=== PATIENT | male | born 1950 | race Caucasian/White ===

== ENCOUNTER → 2016-06-03 | Outpatient (CLI) | payer OTHER, BC ==
[~2016-06-03] MED LIST: ASPI81TA28 PO; ATOR-26 PO; CHOL2000 PO; ELQ25 PO; EPP3/2 IM; ERGO500037 PO; FRS/40 PO; GLC500 PO; LEVE250T PO; LEVO25TA PO; LISI-461 PO; LOSA1TAB PO; LPT40 PO; LVMIPEN SQ; MULT-513 PO; NVLGI/PEN SQ; OMEG10007 PO; SPIR50TA2 PO; SPRN100 PO; TPRSR25 PO; TRIATAB3 PO
[2016-06-03 12:44] LABS: BLOOD UREA NITROGEN 31 mg/dl (7-18); BUN/CREATININE RATIO 20.4 (10-20); CALCIUM 8.9 mg/dl (8.5-10.1); CARBON DIOXIDE 28 mmol/L (21-32); CHLORIDE 107 mmol/L (98-107); GLUCOSE 123 mg/dl (70-99); POTASSIUM 3.9 mmol/L (3.5-5.1); SODIUM 144 mmol/L (136-145)
== END | disposition home or self-care (01) ==
LOC: C.LAB1850 11:20
PROVIDERS: ATTEND Nurse Practitioner Family
DX: E03.9 Hypothyroidism, unspecified (principal); E55.9 Vitamin D deficiency, unspecified; N18.3 Chronic kidney disease, stage 3 (moderate)

== ENCOUNTER → 2016-06-19 | Outpatient (CLI) | payer OTHER, BC ==
[2016-06-19 12:08] LABS: BLOOD UREA NITROGEN 73 mg/dl (7-18); BUN/CREATININE RATIO 31.8 (10-20); CALCIUM 9.5 mg/dl (8.5-10.1); CARBON DIOXIDE 28 mmol/L (21-32); CHLORIDE 101 mmol/L (98-107); GLUCOSE 111 mg/dl (70-99); POTASSIUM 4.8 mmol/L (3.5-5.1); SODIUM 137 mmol/L (136-145)
== END | disposition home or self-care (01) ==
LOC: C.LAB1850 10:52
PROVIDERS: ATTEND Nurse Practitioner Family
DX: I10 Essential (primary) hypertension (principal)

== ENCOUNTER → 2016-07-12 | Outpatient (CLI) | payer OTHER, BC ==
[2016-07-12 12:02] LABS: BLOOD UREA NITROGEN 29 mg/dl (7-18); CALCIUM 8.9 mg/dl (8.5-10.1); CARBON DIOXIDE 34 mmol/L (21-32); CHLORIDE 103 mmol/L (98-107); GLUCOSE 171 mg/dl (70-99); PHOSPHORUS 3.2 mg/dl (2.5-4.9); POTASSIUM 3.7 mmol/L (3.5-5.1); SODIUM 144 mmol/L (136-145)
[2016-07-12 12:03] LABS: URINE PROTIEN/CREAT RATIO 0.3 (0-0.2); URINE TOTAL PROTEIN 7.4 mg/dl (0-11.9)
== END | disposition home or self-care (01) ==
LOC: C.LAB 11:10
PROVIDERS: ATTEND Internal Medicine Nephrology
DX: N18.3 Chronic kidney disease, stage 3 (moderate) (principal)

== ENCOUNTER → 2016-08-29 | Outpatient (CLI) | payer OTHER, BC ==
[2016-08-29 13:09] LABS: BLOOD UREA NITROGEN 24 mg/dl (7-18); BUN/CREATININE RATIO 15.1 (10-20); CALCIUM 8.9 mg/dl (8.5-10.1); CARBON DIOXIDE 33 mmol/L (21-32); CHLORIDE 103 mmol/L (98-107); GLUCOSE 129 mg/dl (70-99); MAGNESIUM 2.3 mg/dl (1.8-2.4); PHOSPHORUS 3.1 mg/dl (2.5-4.9); POTASSIUM 3.8 mmol/L (3.5-5.1); SODIUM 142 mmol/L (136-145)
== END | disposition home or self-care (01) ==
LOC: C.LAB1850 11:36
PROVIDERS: ATTEND Nurse Practitioner Family
DX: Z11.59 Encounter for screening for other viral diseases (principal); I10 Essential (primary) hypertension

== ENCOUNTER → 2016-10-13 | Outpatient (CLI) | payer OTHER, BC ==
[2016-10-13 13:07] LABS: BLOOD UREA NITROGEN 34 mg/dl (7-18); BUN/CREATININE RATIO 21.3 (10-20); CALCIUM 8.8 mg/dl (8.5-10.1); CARBON DIOXIDE 26 mmol/L (21-32); CHLORIDE 98 mmol/L (98-107); MAGNESIUM 2.2 mg/dl (1.8-2.4); PHOSPHORUS 3.1 mg/dl (2.5-4.9); POTASSIUM 4.3 mmol/L (3.5-5.1); SODIUM 134 mmol/L (136-145)
[2016-10-13 13:10] LABS: GLUCOSE 439 mg/dl (70-99)
[2016-10-13 13:29] LABS: BETA-HYDROXYBUTYRATE 0.98 mg/dL (0.2-2.81)
== END | disposition home or self-care (01) ==
LOC: C.LAB1850 10:10
PROVIDERS: ATTEND Internal Medicine Nephrology
DX: I50.32 Chronic diastolic (congestive) heart failure (principal)

== ENCOUNTER 2016-11-11 14:46 | Inpatient (IN) | payer OTHER, BC ==
[~2016-11-11] VITALS: Ht 167.6 cm; Wt 112.0 kg
[~2016-11-11 14:46] MED LIST changes: -CHOL2000 PO; -ELQ25 PO; -EPP3/2 IM; -FRS/40 PO; -GLC500 PO; -LEVE250T PO; -LOSA1TAB PO; -LPT40 PO; -LVMIPEN SQ; -NVLGI/PEN SQ; -SPIR50TA2 PO; -SPRN100 PO; -TPRSR25 PO
[2016-11-11] MEDS ORDERED: SODIUM CHLORIDE 0.9% 1000ML 1,000 ML IV STA (15:14)
[2016-11-11] MEDS ORDERED: CEFTRIAXONE SOD INJ 1 GM ADDVIAL IV STA (15:20)
[2016-11-11] MEDS ORDERED: POTASSIUM CHLORIDE 10 MEQ TABCR PO STA (15:20)
[2016-11-11] MEDS ORDERED: POTASSIUM CHLORIDE 10 MEQ / 100ML WTR IV STA (15:20)
[2016-11-11 15:30] LABS: ISTAT CARBON DIOXIDE 24 mEq/l (24-31); ISTAT CHLORIDE 86 mEq/L (101-112); ISTAT CREATININE 1.6 mg/dl (0.6-1.3); ISTAT HEMATOCRIT 51 % (42-52); ISTAT HEMOGLOBIN 17.3 g/dl (14.0-18.0); ISTAT IONIZED CALCIUM 1.04 mmol/l (1.12-1.32); ISTAT SODIUM 126 mEq/L (135-144)
[2016-11-11] MEDS ORDERED: SEVERE STRESS LEVEL ONE ×2 (15:30→16:00)
[2016-11-11 15:31] LABS: BASO % 0.1 %; BASO ABS # 0.01 K/uL (0-0.2); COMPLETE YES; IG% 0.4 %; LYMPH % 8.7 %; MEAN CORPUSCULAR HEMOGLOBIN 27.1 pg (25-34); MEAN CORPUSCULAR HGB CONC 31.9 g/dl (32-36); MEAN PLATELET VOLUME 10.1 fL (7.4-10.4); MONO % 4.6 %; NEUT % 86.2 %; PLATELET COUNT 340 K/uL (130-400); RED BLOOD COUNT 5.65 M/uL (4.7-6.1); WHITE BLOOD COUNT 12.67 K/uL (4.8-10.8)
--- NOTE | 2016-11-11 15:34 | DIAGNOSTIC IMAGING REPORT ---
SINGLE VIEW CHEST CLINICAL HISTORY: Fever. Sepsis. FINDINGS: An AP, portable, upright chest radiograph is compared to study dated 04/11/2016. The examination is degraded by portable technique, apical lordotic positioning, and patient rotation. The heart is enlarged and there is atherosclerotic calcification of the thoracic aorta. The pulmonary vasculature is noncongested. Chronic interstitial thickening is similar to previous. The lungs and pleural spaces are clear. No pneumothorax is seen. The skeletal structures are osteopenic. The bony thorax is grossly intact. IMPRESSION: Cardiomegaly with no acute cardiopulmonary abnormality. Electronically signed by: Adan Valdovinos M.D. 11/11/2016 3:33 PM Dictated Date/Time: 11/11/2016 3:32 PM
[2016-11-11 15:41] LABS: PARTIAL THROMBOPLASTIN RATIO 0.9; PROTHROMBIN TIME (PATIENT) 11.2 SECONDS (9.0-12.0)
[2016-11-11] MEDS ORDERED: FRS/40 PO (15:41)
[2016-11-11] MEDS ORDERED: CHOL2000 PO (15:41)
[2016-11-11] MEDS ORDERED: SPIR50TA2 PO (15:41)
[2016-11-11] MEDS ORDERED: LOSA1TAB PO (15:41)
[2016-11-11] MEDS ORDERED: GLUCOSE 40% GEL 15 GM TUBE PO PRN ×2 (15:45→17:30)
[2016-11-11] MEDS ORDERED: INSULIN HUMAN REGULAR IV BOLUS 4 UNIT in SYRINGE 0 ML IV SCH (15:45)
[2016-11-11] MEDS ORDERED: DEXTROSE 50% 50 ML SYR IV PRN ×2 (15:45→17:30)
[2016-11-11] MEDS ORDERED: INSULIN REGULAR 250 UNITS in SODIUM CHLORIDE 0.9% 250ML 250 ML IV ONE (15:45)
[2016-11-11] MEDS ORDERED: GLUCOSE 10 TABS/TUBE PO PRN ×2 (15:45→17:30)
[2016-11-11] MEDS ORDERED: GLUCAGON FOR INJ 1 MG VIAL SQ PRN ×2 (15:45→17:30)
[2016-11-11 16:03] LABS: ALKALINE PHOSPHATASE 106 U/L (45-117); ALT/SGPT 44 U/L (12-78); AST/SGOT 19 U/L (15-37); BLOOD UREA NITROGEN 36 mg/dl (7-18); CALCIUM 8.4 mg/dl (8.5-10.1); CARBON DIOXIDE 23 mmol/L (21-32); CHLORIDE 88 mmol/L (98-107); CKMB/CK RATIO 1.2 (0-3.0); POTASSIUM 3.9 mmol/L (3.5-5.1); SODIUM 125 mmol/L (136-145)
[2016-11-11 16:04] LABS: GLUCOSE 709 mg/dl (70-99)
[2016-11-11 16:13] LABS: ARTERIAL BLD GAS O2 SATURATION 90.6 % (90-95); ARTERIAL BLOOD GAS BASE EXCESS -1.5 mEq/L (-9-1.8); ARTERIAL BLOOD GAS HCO3 26 mmol/L (19-24); ARTERIAL BLOOD GAS PO2 64 mmHg (80-95); ARTERIAL BLOOD GAS pH 7.29 (7.35-7.45)
[2016-11-11 16:14] LABS: ALLEN TEST POS (POS); O2 ADMINISTRATION 3L O2
[2016-11-11 16:15] LABS: BETA-HYDROXYBUTYRATE 20.96 mg/dL (0.2-2.81)
--- NOTE | 2016-11-11 16:35 | EMERGENCY ROOM VISIT NOTE ---
History Report prepared by Jacquelineibsarah: Martin Jefferson Under the Supervision of: Dr. Aubrey Cage D.O. First contact with patient: 15:12 Chief Complaint: WEAKNESS Stated Complaint: AMS/WEAKNESS Nursing Triage Summary: Patient arrives via ALS from [facility] with complaints of AMS and weakness for past few days per staff. Patient recently diagnosed with DM but not started on meds, ems checked BSG and reading was >600. Patient A&Ox0 at this time, unable to tell us his name. History of Present Illness The patient is a 66 year old male who presents to the Emergency Room with complaints of worsening altered mental status starting a few days ago. Per EMS, the patient is from [facility] and is typically independent. They state that the staff reports he has been weak and not himself the last couple of days. EMS reports that he was recently diagnosed with diabetes, but has not started his medications yet. Per nursing, they checked his blood sugar level and it was over 600. The patient states that he cannot remember his name. He denies any abdominal pain or generalized pain. The HPI is limited due to the patient's altered mental status. Source of History: EMS, nursing staff History Limited By: AMS Onset: few days ago Position: other (global) Timing: worsening Associated Symptoms: No abdominal pain Review of Systems The ROS is limited due to the patient's altered mental status. Past Medical & Surgical Medical Problems: (1) CORON ATHEROSCLER NOS TYPE VESSEL, LAC COURTE OREILLES OR GRAFT (2) HYPERTENSION NOS (3) Percutaneous transluminal coronary angioplasty (4) Placement of stent in coronary artery Family History Heart disease Stroke Social History Smoking Status: Unknown if Ever Smoked Marital Status: Occupation Status: retired Current/Historical Medications Scheduled Aspirin (Aspirin Ec), 81 MG PO DAILY Atorvastatin (Lipitor), 40 MG PO DAILY Cholecalciferol (Vitamin D3), 2 CAP PO DAILY Epinephrine (Epipen), 0.3 MG IM UD Fish Oil ([place]-3), 1 CAP PO DAILY Furosemide (Lasix), 40 MG PO BID Levothyroxine Sodium (Synthroid), 25 MCG PO DAILY Losartan Potassium (Cozaar), 25 MG PO DAILY Multivitamins/Minerals (Mvi With Minerals), 1 TAB PO DAILY Spironolactone (Aldactone), 50 MG PO DAILY Allergies Coded Allergies: BEE STING (Verified Allergy, Severe, breathing problems, 01/30/13) Physical Exam Vital Signs Date Time Temp Pulse Resp B/P (MAP) Pulse Ox O2 Delivery O2 Flow Rate FiO2 11/11/16 17:06 110 20 183/79 97 Nasal Cannula 3.0 11/11/16 16:03 117 20 195/107 94 Nasal Cannula 3.0 11/11/16 15:43 150 11/11/16 15:08 115 11/11/16 14:56 99 Nasal Cannula 3.0 11/11/16 14:56 38.6 122 34 156/101 99 Nasal Cannula 3.0 Physical Exam CONSTITUTIONAL/VITAL SIGNS: Reviewed / noted above. GENERAL: Non-toxic in appearance. INTEGUMENTARY: Warm, dry, and [place]. HEAD: Normocephalic. EYES: without scleral icterus or trauma. ENT/OROPHARYNX: clear and moist. LYMPHADENOPATHY/NECK: Is supple without lymphadenopathy or meningismus. RESPIRATORY: Lungs clear and equal. CARDIOVASCULAR: Regular rate and rhythm. GI/ABDOMEN: Soft and nontender. No organomegaly or pulsatile mass. No rebound or guarding. Normal bowel sounds. EXTREMITIES: Warm and well perfused. BACK: No CVA tenderness. NEUROLOGICAL: Awake and alert, but not oriented to person, place, or time. Follows simple commands. PSYCHIATRIC: normal affect. MUSCULOSKELETAL: Normally developed with good muscle tone. Medical Decision & Procedures ER Provider Diagnostic Interpretation: X ray results and stated below per my interpretation and radiology interpretation. SINGLE VIEW CHEST CLINICAL HISTORY: Fever. Sepsis. FINDINGS: An AP, portable, upright chest radiograph is compared to study dated 04/11/2016. The examination is degraded by portable technique, apical lordotic positioning, and patient rotation. The heart is enlarged and there is atherosclerotic calcification of the thoracic aorta. The pulmonary vasculature is noncongested. Chronic interstitial thickening is similar to previous. The lungs and pleural spaces are clear. No pneumothorax is seen. The skeletal structures are osteopenic. The bony thorax is grossly intact. IMPRESSION: Cardiomegaly with no acute cardiopulmonary abnormality. Electronically signed by: Adan Valdovinos M.D. 11/11/2016 3:33 PM Dictated Date/Time: 11/11/2016 3:32 PM Laboratory Results 11/11/16 15:20 Red Blood Count 5.65, Mean Corpuscular Volume 85.0, Mean Corpuscular Hemoglobin 27.1, Mean Corpuscular Hemoglobin Concent 31.9, Mean Platelet Volume 10.1, Neutrophils (%) (Auto) 86.2, Lymphocytes (%) (Auto) 8.7, Monocytes (%) (Auto) 4.6, Eosinophils (%) (Auto) 0.0, Basophils (%) (Auto) 0.1, Neutrophils # (Auto) 10.93, Lymphocytes # (Auto) 1.10, Monocytes # (Auto) 0.58, Eosinophils # (Auto) 0.00, Basophils # (Auto) 0.01 11/11/16 15:20 Test 11/11/16 15:15 11/11/16 15:20 11/11/16 15:44 11/11/16 16:06 Bedside Hemoglobin 17.3 g/dl (14.0-18.0) Bedside Hematocrit 51 % (42-52) Bedside Sodium 126 mEq/L (135-144) Bedside Potassium 3.8 mEq/L (3.3-5.0) Bedside Chloride 86 mEq/L (101-112) Bedside Total CO2 24 mEq/l (24-31) Bedside Blood Urea Nitrogen 36 mg/dl (7-18) Bedside Creatinine 1.6 mg/dl (0.6-1.3) Bedside Glucose (other) > 700 mg/dl (70-99) Bedside Ionized Calcium (Tiera) 1.04 mmol/l (1.12-1.32) White Blood Count 12.67 K/uL (4.8-10.8) Red Blood Count 5.65 M/uL (4.7-6.1) Hemoglobin 15.3 g/dL (14.0-18.0) Hematocrit 48.0 % (42-52) Mean Corpuscular Volume 85.0 fL (80-100) Mean Corpuscular Hemoglobin 27.1 pg (25-34) Mean Corpuscular Hemoglobin Concent 31.9 g/dl (32-36) Platelet Count 340 K/uL (130-400) Mean Platelet Volume 10.1 fL (7.4-10.4) Neutrophils (%) (Auto) 86.2 % Lymphocytes (%) (Auto) 8.7 % Monocytes (%) (Auto) 4.6 % Eosinophils (%) (Auto) 0.0 % Basophils (%) (Auto) 0.1 % Neutrophils # (Auto) 10.93 K/uL (1.4-6.5) Lymphocytes # (Auto) 1.10 K/uL (1.2-3.4) Monocytes # (Auto) 0.58 K/uL (0.11-0.59) Eosinophils # (Auto) 0.00 K/uL (0-0.5) Basophils # (Auto) 0.01 K/uL (0-0.2) RDW Standard Deviation 44.2 fL (36.4-46.3) RDW Coefficient of Variation 14.3 % (11.5-14.5) Immature Granulocyte % (Auto) 0.4 % Immature Granulocyte # (Auto) 0.05 K/uL (0.00-0.02) Prothrombin Time 11.2 SECONDS (9.0-12.0) Prothromb Time International Ratio 1.0 (0.9-1.1) Activated Partial Thromboplast Time 24.5 SECONDS (21.0-31.0) Partial Thromboplastin Ratio 0.9 Anion Gap 14.0 mmol/L (3-11) Est Creatinine Clear Calc Drug Dose 44.6 ml/min Estimated GFR () 41.7 Estimated GFR (Non- 35.9 BUN/Creatinine Ratio 19.0 (10-20) Calcium Level 8.4 mg/dl (8.5-10.1) Total Bilirubin 0.7 mg/dl (0.2-1) Direct Bilirubin 0.3 mg/dl (0-0.2) Aspartate Amino Transf (AST/SGOT) 19 U/L (15-37) Alanine Aminotransferase (ALT/SGPT) 44 U/L (12-78) Alkaline Phosphatase 106 U/L (45-117) Total Creatine Kinase 82 U/L (39-308) Creatine Kinase MB 1.0 ng/ml (0.5-3.6) Creatine Kinase MB Ratio 1.2 (0-3.0) Troponin I < 0.015 ng/ml (0-0.045) Total Protein 7.0 gm/dl (6.4-8.2) Albumin 3.3 gm/dl (3.4-5.0) Lipase 281 U/L (73-393) Beta-Hydroxybutyric Acid 20.96 mg/dL (0.2-2.81) Arterial Blood pH 7.29 (7.35-7.45) Arterial Blood Partial Pressure CO2 57 mmHg (35-46) Arterial Blood Partial Pressure O2 64 mmHg (80-95) Arterial Blood HCO3 26 mmol/L (19-24) Arterial Blood Oxygen Saturation 90.6 % (90-95) Arterial Blood Base Excess -1.5 mEq/L (-9-1.8) Arterial Blood Gas Delivery 3L O2 Geovani Test POS (POS) Lactic Acid Level 1.3 mmol/L (0.4-2.0) Laboratory results as stated above per my review. Medications Administered Medications (Trade) Dose Ordered Sig/Cuauhtemoc Route Start Time Stop Time Status Last Admin Dose Admin Sodium Chloride 1,000 ml @ 999 mls/hr Q1H1M STAT IV 11/11/16 15:14 11/11/16 16:14 DC 11/11/16 16:05 999 MLS/HR Miscellaneous (Insulin Protocol Severe Stress) 1 ea ONE ONCE N/A 11/11/16 15:30 11/11/16 15:31 DC 11/11/16 16:20 1 EA Potassium Chloride (Kcl 10 Meq / Wtr) 10 meq NOW STAT IV 11/11/16 15:20 11/11/16 15:24 DC 11/11/16 16:08 10 MEQ Ceftriaxone Sodium (Rocephin Inj) 1 gm NOW STAT IV 11/11/16 15:20 11/11/16 15:24 DC 11/11/16 16:04 1 GM Insulin Human Regular 4 unit/ Syringe 4 ml @ 1 mls/min TODAY@1545 IV 11/11/16 15:45 11/11/16 15:48 DC 11/11/16 16:14 1 MLS/MIN Insulin Human Regular 250 units/ Sodium Chloride 252.5 ml @ 4.1 mls/hr TODAY@1545 ONCE IV 11/11/16 15:45 11/14/16 05:20 11/11/16 16:15 4.1 MLS/HR Miscellaneous (Insulin Protocol Severe Stress) 1 ea ONE ONCE N/A 11/11/16 16:00 11/11/16 16:01 DC 11/11/16 16:24 1 EA ECG Indication: altered mental status Rate (beats per minute): 120 Rhythm: sinus tachycardia Findings: no acute ischemic change, no ectopy ED Course 1518: Previous medical records were reviewed. The patient was evaluated in room B12B. A complete history and physical examination was performed. 1514: Sodium Chloride 1000 ml @ 999 mls/hr Iv. 1520: Rocephin Injection 1 gm IV, Potassium Chloride 10 meq IV, Potassium Chloride 40 mew PO. 1530: Insulin Protocol Severe Stress 1 each. 1545: Glucagon 1 mg SQ, Dextrose 50 ml IV, Glucose 1 tab PO, Insulin Human Regular 250 units/ Sodium Chloride 252.2 ml @ 4.1 mls/hr IV, Insulin Human Regular 4 unit/ Syringe 4 ml @ 1 mls/min IV. 1628: I discussed the patient's case with Dr. Davila, [facility] Hospitalist. He understands the patient's conditions and agrees to accept the patient. The patient will be further evaluated. 1900: Insulin Aspart sliding scale SC. Medical Decision Differential includes acute coronary syndrome, myocardial infarction, CVA, TIA, anemia, infection, pneumonia, UTI, pyelonephritis, poor nutrition, dehydration, electrolyte disturbance,hypoglycemia. Medication Reconciliation: I attest that I have personally reviewed the patient' s current medication list. Patient was found to have a slightly elevated blood pressure due to circumstances. I do not believe that the patient requires hypertension monitoring. This is a 66-year-old male who presents to the ED with a chief complaint of altered mental status, fever and high blood sugar. The patient has recently been diagnosed with diabetes but has not yet been placed on medication for this. Today he was found to be altered and weak. Temperature here is 38.6. Heart rate was 122. His blood pressure was 156/101. The patient is awake and observed his surroundings but does not answer questions appropriately. He does follow basic commands. His sodium is 125. This is likely pseudohyponatremia related to his hyperglycemia. His blood sugar was 709. Anion gap is 14. BUN is 36 and creatinine is 1.9. Chest x-ray did not show acute disease. White cell count was 12.67. The patient was started on IV fluids. He was given normal saline 1 L. He was started on IV insulin drip, given K Dur 40 mEq by mouth and KCl 10 mg IV. He was also given IV Rocephin. The patient was seen by the hospitalist service for further inpatient evaluation and care. Consults Time Called: 1627 Consulting Physician: Dr. Davila, [facility] Hospitalist Returned Call: [phone] I discussed the patient's case with Dr. Davila [facility] Hospitalist. He understands the patient's conditions and agrees to accept the patient. The patient will be further evaluated. Impression Primary Impression: Hyperglycemia Additional Impressions: Dehydration Renal insufficiency Fever Altered mental state Critical Care I have personally spent 35 minutes of critical care time in the direct management of this patient. This includes bedside care, interpretation of diagnostic studies, and testing, discussion with consultants, patient, and family members, and other required patient management activities. Scribe Attestation The scribe's documentation has been prepared under my direction and personally reviewed by me in its entirety. I confirm that the note above accurately reflects all work, treatment, procedures, and medical decision making performed by me. Departure Information Dispostion Being Evaluated By Hospitalist Referrals Livier Gamble (PCP) Patient Instructions My [facility] Problem Qualifiers
[2016-11-11] MEDS ORDERED: EPP3/2 IM (16:36)
[2016-11-11] MEDS ORDERED: POTASSIUM CHLR 10 MEQ / WTR 10 MEQ in PREMIXED WATER 100 ML IV STA (16:37)
[2016-11-11] MEDS ORDERED: INSULIN IV INFUSION PROTOCOL STA (17:18)
[2016-11-11] MEDS ORDERED: ONDANSETRON INJ 2 MG/ML 2 ML VIAL IV PRN (17:30)
[2016-11-11] MEDS ORDERED: ACETAMINOPHEN 325 MG TAB PO PRN (17:30)
[2016-11-11] MEDS ORDERED: MAGNESIUM HYDROXIDE SUSP 30 ML UDC PO PRN (17:30)
[2016-11-11] MEDS ORDERED: ALUMINUM/MAGNESIUM/SIMETH (MAALOX MAX) 30 ML UDC PO PRN (17:30)
[2016-11-11] MEDS ORDERED: POLYETHYLENE (MIRALAX) 17 GM PACK PO PRN (17:30)
[2016-11-11 17:48] LABS: URINE APPEARANCE CLEAR (CLEAR); URINE BILIRUBIN NEG (NEG); URINE COLOR YELLOW; URINE EPITHELIAL CELL AUTO 0-5 /lpf (0-5); URINE NITRITE NEG (NEG); URINE SPECIFIC GRAVITY 1.035 (1.000-1.030); UROBILINOGEN NEG (NEG); ZZUR CULT IF INDIC CLEAN CATCH NO
[2016-11-11 17:50] LABS: MANUAL MICROSCOPIC REQUIRED? NO; REVIEW REQ? NO
[2016-11-11 17:51] LABS: MAGNESIUM 2.4 mg/dl (1.8-2.4); PHOSPHORUS 5.1 mg/dl (2.5-4.9)
[2016-11-11 18:15] VITALS: BP 156/86; PULSE 90; TEMP 37.4; O2SAT 97; BMI 38.3
[2016-11-11] MEDS: INSULIN ASPART 100 UNITS/ML 3 ML PEN SC SCH ×2 (18:52→21:00)
[2016-11-11] MEDS ORDERED: INSULIN ASPART 100 UNITS/ML 3 ML PEN SC SCH (18:52)
[2016-11-11 19:15] VITALS: BP 136/97; PULSE 92; TEMP 36.8; O2SAT 98
[2016-11-11 20:00] VITALS: O2SAT 98
--- NOTE | 2016-11-11 20:02 | History and Physical ---
History & Physical Date & Time of Service: Nov 11, 2016 at 19:31 Chief Complaint: Dka(Diabetic Ketoacidoses) Primary Care Physician: Livier Gamble History of Present Illness Source: patient, clinic records, hospital records This is a 66 y/o male with a history of recently diagnosed DM II, CAD s/p PROGRAMMING ENGINEER, diastolic CHF, CKD stage III, HLD, HTN, and hypothyroidism who presented to the ED on 11/11 with confusion and weakness. The patient is a resident of [facility] and is typically independent per report. The staff reports that the patient had been acting unusual for the last few days and weak. His blood sugar was checked by staff and was reportedly over 600. The patient was recently diagnosed with diabetes but has not been started on a regimen yet. On exam, the patient is completely confused and disoriented and unable to tell me any review of systems. Past Medical/Surgical History Medical Problems: (1) CORON ATHEROSCLER NOS TYPE VESSEL, [place] OR GRAFT Status: Chronic (2) HYPERTENSION NOS Status: Chronic (3) Percutaneous transluminal coronary angioplasty Status: Resolved (4) Placement of stent in coronary artery Status: Resolved DM II Diastolic CHF CKD stage III HTN HLD Hypothyroidism Family History Heart disease Stroke Social History Social history obtained from outpatient records, pt unable to provide himself Smoking Status: Never Smoker Smokeless Tobacco Use: No Alcohol Use: none Drug Use: none Marital Status: Housing status: assisted living ([facility]) Occupational Status: retired Immunizations History of Influenza Vaccine: No History of Tetanus Vaccine?: Yes History of Pneumococcal: No History of Hepatitis B Vaccine: No Multi-Drug Resistant Organisms History of MDRO: Yes Type of MDRO: MRSA Allergies Coded Allergies: BEE STING (Verified Allergy, Severe, breathing problems, 01/30/13) Home Medications Scheduled Apixaban (Eliquis), 5 MG PO BID Aspirin (Aspirin Ec), 81 MG PO DAILY Atorvastatin (Atorvastatin Calcium), 80 MG PO DAILY Cholecalciferol (Vitamin D3), 2 CAP PO DAILY Epinephrine (Epipen), 0.3 MG IM UD Fish Oil (Taopi-3), 1 CAP PO DAILY Insulin Aspart (Novolog Flexpen), 4-9 UNITS SQ TID Insulin Detemir (Levemir Flextouch), 30 UNITS SQ BID Levetiracetam (Keppra), 2 TAB PO BID Levothyroxine Sodium (Synthroid), 25 MCG PO DAILY Losartan Potassium (Cozaar), 25 MG PO DAILY Metformin HCl (Metformin HCl), 500 MG PO BIDM Metoprolol Succinate (Metoprolol Succinate ER), 25 MG PO BID Multivitamins/Minerals (Mvi With Minerals), 1 TAB PO DAILY Spironolactone (Spironolactone), 50 MG PO DAILY Review of Systems Unable to obtain ROS due to mental status. Physical Exam Vital Signs Date Time Temp Pulse Resp B/P (MAP) Pulse Ox O2 Delivery O2 Flow Rate FiO2 11/11/16 17:34 97 22 160/98 97 Nasal Cannula 3.0 11/11/16 17:06 110 20 183/79 97 Nasal Cannula 3.0 11/11/16 16:03 117 20 195/107 94 Nasal Cannula 3.0 11/11/16 15:43 150 11/11/16 15:08 115 11/11/16 14:56 99 Nasal Cannula 3.0 11/11/16 14:56 38.6 122 34 156/101 99 Nasal Cannula 3.0 General appearance: +Obese. Well-developed, well-nourished, no apparent distress Head: Normocephalic, atraumatic Eyes: Normal inspection, PERRL, EOMI ENT: Normal ENT inspection, hearing grossly normal, pharynx normal Neck: Supple, no JVD, trachea midline Respiratory/Chest: Lungs clear to auscultation, normal breath sounds, no respiratory distress Cardiovascular: +Systolic murmur. Tachycardia. Regular rhythm, no gallop Abdomen/GI: Normal bowel sounds, non-tender, soft Extremities/Musculoskeletal: Normal inspection, no calf tenderness, no pedal edema Neurological/Psych: +Confused, disoriented x 3. Able to follow commands. Alert, normal mood/affect Skin: Normal color, warm/dry, no rash Diagnostics Laboratory Results Results Past 24 Hours Test 11/11/16 15:15 11/11/16 15:20 11/11/16 15:44 11/11/16 16:06 Range/Units Bedside Hemoglobin 17.3 14.0-18.0 g/dl Bedside Hematocrit 51 42-52 % Bedside Sodium 126 135-144 mEq/L Bedside Potassium 3.8 3.3-5.0 mEq/L Bedside Chloride 86 101-112 mEq/L Bedside Total CO2 24 24-31 mEq/l Anion Gap 21.0 14.0 3-11 mmol/L Bedside Blood Urea Nitrogen 36 7-18 mg/dl Bedside Creatinine 1.6 0.6-1.3 mg/dl Bedside Glucose (other) > 700 70-99 mg/dl Bedside Ionized Calcium (Tiera) 1.04 1.12-1.32 mmol/l White Blood Count 12.67 4.8-10.8 K/uL Red Blood Count 5.65 4.7-6.1 M/uL Hemoglobin 15.3 14.0-18.0 g/dL Hematocrit 48.0 42-52 % Mean Corpuscular Volume 85.0 80-100 fL Mean Corpuscular Hemoglobin 27.1 25-34 pg Mean Corpuscular Hemoglobin Concent 31.9 32-36 g/dl Platelet Count 340 130-400 K/uL Mean Platelet Volume 10.1 7.4-10.4 fL Neutrophils (%) (Auto) 86.2 % Lymphocytes (%) (Auto) 8.7 % Monocytes (%) (Auto) 4.6 % Eosinophils (%) (Auto) 0.0 % Basophils (%) (Auto) 0.1 % Neutrophils # (Auto) 10.93 1.4-6.5 K/uL Lymphocytes # (Auto) 1.10 1.2-3.4 K/uL Monocytes # (Auto) 0.58 0.11-0.59 K/uL Eosinophils # (Auto) 0.00 0-0.5 K/uL Basophils # (Auto) 0.01 0-0.2 K/uL RDW Standard Deviation 44.2 36.4-46.3 fL RDW Coefficient of Variation 14.3 11.5-14.5 % Immature Granulocyte % (Auto) 0.4 % Immature Granulocyte # (Auto) 0.05 0.00-0.02 K/uL Prothrombin Time 11.2 9.0-12.0 SECONDS Prothromb Time International Ratio 1.0 0.9-1.1 Activated Partial Thromboplast Time 24.5 21.0-31.0 SECONDS Partial Thromboplastin Ratio 0.9 Sodium Level 125 136-145 mmol/L Potassium Level 3.9 3.5-5.1 mmol/L Chloride Level 88 98-107 mmol/L Carbon Dioxide Level 23 21-32 mmol/L Blood Urea Nitrogen 36 7-18 mg/dl Creatinine 1.90 0.60-1.40 mg/dl Est Creatinine Clear Calc Drug Dose 44.6 ml/min Estimated GFR () 41.7 Estimated GFR (Non- 35.9 BUN/Creatinine Ratio 19.0 10-20 Random Glucose 709 70-99 mg/dl Calcium Level 8.4 8.5-10.1 mg/dl Phosphorus Level 5.1 2.5-4.9 mg/dl Magnesium Level 2.4 1.8-2.4 mg/dl Total Bilirubin 0.7 0.2-1 mg/dl Direct Bilirubin 0.3 0-0.2 mg/dl Aspartate Amino Transf (AST/SGOT) 19 15-37 U/L Alanine Aminotransferase (ALT/SGPT) 44 12-78 U/L Alkaline Phosphatase 106 45-117 U/L Total Creatine Kinase 82 39-308 U/L Creatine Kinase MB 1.0 0.5-3.6 ng/ml Creatine Kinase MB Ratio 1.2 0-3.0 Troponin I < 0.015 0-0.045 ng/ml Total Protein 7.0 6.4-8.2 gm/dl Albumin 3.3 3.4-5.0 gm/dl Lipase 281 73-393 U/L Beta-Hydroxybutyric Acid 20.96 0.2-2.81 mg/dL Arterial Blood pH 7.29 7.35-7.45 Arterial Blood Partial Pressure CO2 57 35-46 mmHg Arterial Blood Partial Pressure O2 64 80-95 mmHg Arterial Blood HCO3 26 19-24 mmol/L Arterial Blood Oxygen Saturation 90.6 90-95 % Arterial Blood Base Excess -1.5 -9-1.8 mEq/L Arterial Blood Gas Delivery 3L O2 Geovani Test POS POS Lactic Acid Level 1.3 0.4-2.0 mmol/L Test 11/11/16 17:17 11/11/16 17:30 11/11/16 18:19 11/11/16 19:19 Range/Units Bedside Glucose 449 380 313 70-99 mg/dl Urine Color YELLOW Urine Appearance CLEAR CLEAR Urine pH 5.0 4.5-7.5 Urine Specific [place] 1.035 1.000-1.030 Urine Protein TRACE NEG Urine Glucose (UA) 3+ NEG Urine Ketones TRACE NEG Urine Occult Blood TRACE NEG Urine Nitrite NEG NEG Urine Bilirubin NEG NEG Urine Urobilinogen NEG NEG Urine Leukocyte Esterase NEG NEG Urine WBC (Auto) 0 0-5 /hpf Urine RBC (Auto) 0-4 0-4 /hpf Urine Hyaline Casts (Auto) 1-5 0-5 /lpf Urine Epithelial Cells (Auto) 0-5 0-5 /lpf Urine Bacteria (Auto) NEG NEG Microbiology Results 11/11/16 Blood Culture, Received Pending 11/11/16 Blood Culture, Received Pending Diagnostic Radiology Reviewed the following studies and agree with interpretation as follows: Patient Name: KALEB ANDINO Unit Number: [id number] Dictated: 11/11/161531 Transcribed: 11/11/161531 EV Printed Date/Time: [~ rep prt dt]/[~ rep prt tm] [~ rep ct labl] - [~ rep ct ivnm] [facility] [place] [address] Dictated: 11/11/161531 Transcribed: 11/11/16 153 EV Printed Date/Time: [~ rep prt dt]/[~ rep prt tm] [~ rep ct labl] - [~ rep ct ivnm] Patient: KALEB ANDINO Address1: [address] [place] [address] Rec: [id number] Address2: Acct ID: [id number] [facility] Zip: [place] [address] Date: 1950 Sex: M Room/Bed: Ref Phy: Livier Gamble.R.N.PDasia SC: LENCHO Att Phy: Report #: [id number] Bisi Phy: Livier Gamble.R.N.PDasia Test: CXR1P Admit Phy: Acupressure Therapist: WILIAN Interpreting Phy: Adan Valdovinos M.D. Diagnosis: AMS/WEAKNESS Ordering Phy: Aubrey Cage D.O. Service Date: 11/11/16 Admit Date: 11/11/16 MNE: [id number] CONF: DICTATED BY: Adan Valdovinos M.D.]] CC: Livier GambleNAubrey Lnae D.O. [facility]: [~ rep ct add3]] SINGLE VIEW CHEST CLINICAL HISTORY: Fever. Sepsis. FINDINGS: An AP, portable, upright chest radiograph is compared to study dated 04/11/2016. The examination is degraded by portable technique, apical lordotic positioning, and patient rotation. The heart is enlarged and there is atherosclerotic calcification of the thoracic aorta. The pulmonary vasculature is noncongested. Chronic interstitial thickening is similar to previous. The lungs and pleural spaces are clear. No pneumothorax is seen. The skeletal structures are osteopenic. The bony thorax is grossly intact. IMPRESSION: Cardiomegaly with no acute cardiopulmonary abnormality. Electronically signed by: Adan Valdovinos M.D. 11/11/2016 3:33 PM Dictated Date/Time: 11/11/2016 3:32 PM The status of this report is Signed. Draft = Not yet reviewed or approved by Radiologist. Signed = Reviewed and approved by Radiologist. <AttendingPhy></AttendingPhy> <FamilyPhy>Livier Gamble.R.N.PDasia</FamilyPhy> <PrimaryPhy>Livier Gamble.R.N.P.</PrimaryPhy> <UnitNumber>[id number]</ UnitNumber> <VisitNumber>[id number]</VisitNumber> <PatientName>KALEB ANDINO</ PatientName> <DateOfBirth>1950</DateOfBirth> <Location>C.EDB</Location> < ServiceDate>11/11/16</ServiceDate> <MNE>ESINDI</MNE> <OrderingPhy>Aubrey Cage D.O.</OrderingPhy> <OrderingPhyMNE>f rep ord dr cervantes</OrderingPhyMNE> < DictatingPhyMNE>f rep dict dr cervantes</DictatingPhyMNE> <CCListMNE>f rep ct mne</ CCListMNE> <AdmittingPhyMNE>f pt admit dr cervantes</AdmittingPhyMNE> <AttendingPhyMNE >f pt attend dr cervantes</AttendingPhyMNE> <ConsultingPhyMNE>f pt consult dr cervantes</ConsultingPhyMNE> <FamilyPhyMNE>f pt fam dr cervantes</FamilyPhyMNE> <OtherPhyMNE>f pt other dr cervantes</OtherPhyMNE> < PrimaryPhyMNE>f pt prim care dr cervantes</PrimaryPhyMNE> <ReferringPhyMNE>f pt referring dr cervantes</ReferringPhyMNE> EKG Reviewed EKG and agree with interpretation as follows: 120 bpm, sinus tachycardia Impression Assessment and Plan 66 y/o male with a history of recently diagnosed DM II, CAD s/p PROGRAMMING ENGINEER, diastolic CHF, CKD stage III, HLD, HTN, and hypothyroidism who presented to the ED on 11/11 with confusion and weakness. Patient afebrile with temperature of 38.6C on arrival. Patient tachycardic with heart rate in the 120s up to 150. Patient also tachypneic on arrival. Initial glucose 709. WBC 12.67. ABG shows pH of 7.29, pCO2 57, pO2 64, pHCO3 26. Potassium stable at 2.9. Beta hydroxybutyric acid 20.96. Sodium 125, anion gap 14. Creatinine elevated above baseline at 1.9. Chest x-ray shows no acute disease. Patient received IV fluids, insulin, potassium chloride and Rocephin in ED. Diabetic ketoacidosis, recently diagnosed DM--last HgbA1c checked on 10/14/16 was 9.6 -Admit to telemetry -Check magnesium phosphorus now -Serial PRP, magnesium, phosphorus, venous blood gas q4h until stable -IVF with NSS + KCl 20 mEq at 125 cc/hr -Continue insulin drip per protocol -Insulin sliding scale -BSG checks per protocol -UA pending -Blood cultures pending -Patient received 1 dose of Rocephin in the ED CIARA on CKD stage III--baseline creatinine 1.5-1.6 -Containing 1.9 on arrival -IVF as above -Hold Lasix and losartan -Continue to monitor CAD s/p PROGRAMMING ENGINEER, HLD -Continue aspirin 81 mg PO qd and atorvastatin 40 mg PO qd Diastolic CHF--stable, not in acute exacerbation -Continue IVF for now due to DKA, watch carefully -Hold Lasix for now -Continue spironolactone 50 mg PO qd -Daily weights, I's & O's HTN -Losartan held -Cover with hydralazine 10 mg IV q6h prn SBP >180 Hypothyroidism -Continue Synthroid 25 mcg PO qd DVT prophylaxis -Heparin 5000 units SC q8h -BALDEMAR chaudhry and SCDs Code Status -Level I, FULL RESUSCITATION STATUS This chart was completed in part utilizing [employer] Voice Recognition software. Attempts were made to minimize the grammatical errors, random word insertions, pronoun errors and incomplete sentences. Any formal questions or concerns about the content, text or information contained within the body of this dictation should be directly addressed to the provider for clarification. Level of Care Telemetry Resuscitation Status FULL RESUSCITATION VTE Prophylaxis VTE Risk Assessment Done? Y/N: Yes Risk Level: Moderate Given or contraindicated: Unfractionated heparin SQ, T.E.D. Stockings, SCD's Assessment and Plan Attending Addendum: I have physically seen and examined this patient, have directed the physician assistants medical extremities, and agree with the H&P as noted above with the following exceptions: NONE The patient is awake, well-developed and adequately nourished, alert and oriented 3, normocephalic and atraumatic, lying in bed and in mild acute distress. HEENT--PERRL, EOMI, mucous membranes and oropharynx dry. Neck--supple, no JVD or bruits, thyroid normal, trachea midline, no adenopathy. Heart--tachycardic and regular, no murmurs, rubs or gallops. Lungs--few coarse breath sounds bilaterally, no respiratory distress, no accessory muscle use. Abdomen--normal bowel sounds and soft, nontender and nondistended, no hernias or masses, no organomegaly. Extremities--no cyanosis, clubbing or edema. There are good distal pulses b/l. Dermatologic--normal skin turgor, normal color, warm and dry, no abnormal lymph nodes, no rash. Neurologic--cranial nerves II through XII grossly intact. Rheumatologic--normal range of motion, nontender, muscles and joints. Psychiatric--normal affect. Assessment and Plan: 1. DKA in a recently diagnosed diabetic not yet on treatment, and came in tachypneic, tachycardic, dehydrated with signs of respiratory acidosis. Admitted to a monitored bed. Continue the insulin drip per protocol begun in the emergency department. Follow serial PRP, magnesium, phosphorus and venous blood gas at 4 intervals until stable. Follow urine culture and sensitivity, blood culture and sensitivity. Continue Rocephin begun in the ED. Continue rehydration with IV fluids.
[2016-11-11] MEDS: NSS + 20MEQ KCL 1000ML 1,000 ML IV SCH (20:24)
[2016-11-11] MEDS: HEPARIN SOD 5000 UNIT/0.5 ML CARP SQ SCH (20:33)
[2016-11-11 20:59] LABS: BUN/CREATININE RATIO 18.5 (10-20); CALCIUM 8.2 mg/dl (8.5-10.1); CREATININE 1.6 mg/dl (0.60-1.40); POTASSIUM 4.2 mmol/L (3.5-5.1)
[2016-11-11 21:00] LABS: MAGNESIUM 2.5 mg/dl (1.8-2.4)
[2016-11-11 21:14] LABS: BETA-HYDROXYBUTYRATE 3.94 mg/dL (0.2-2.81); PHOSPHORUS 3.3 mg/dl (2.5-4.9)
[2016-11-12] VITALS (7 sets, daily range): BP systolic 135–172; BP diastolic 63–98; PULSE 71–100; TEMP 36.7–37; O2SAT 94–97; BMI 39.1
[2016-11-12 00:12] LABS: BUN/CREATININE RATIO 18.9 (10-20); CALCIUM 8.2 mg/dl (8.5-10.1); CREATININE 1.4 mg/dl (0.60-1.40); MAGNESIUM 2.5 mg/dl (1.8-2.4)
[2016-11-12 00:13] LABS: PHOSPHORUS 3.1 mg/dl (2.5-4.9)
[2016-11-12 00:18] LABS: MANUAL MICROSCOPIC REQUIRED? NO; REVIEW REQ? YES; URINE APPEARANCE CLEAR (CLEAR); URINE BILIRUBIN NEG (NEG); URINE COLOR YELLOW; URINE NITRITE NEG (NEG); URINE PH 5.5 (4.5-7.5); URINE SPECIFIC GRAVITY 1.032 (1.000-1.030); UROBILINOGEN NEG (NEG); ZZURINE CULT IF INDIC CATH YES
[2016-11-12] MEDS ORDERED: D5W AND 1/4NSS + 20MEQ KCL 1,000 ML IV SCH (03:45)
[2016-11-12 04:17] LABS: BASO % 0.1 %; BASO ABS # 0.01 K/uL (0-0.2); COMPLETE YES; HEMATOCRIT 42.6 % (42-52); IG% 0.3 %; LYMPH % 12.2 %; LYMPH ABS # 1.43 K/uL (1.2-3.4); MEAN CELL VOLUME 85.9 fL (80-100); MEAN CORPUSCULAR HEMOGLOBIN 28.2 pg (25-34); MEAN CORPUSCULAR HGB CONC 32.9 g/dl (32-36); MEAN PLATELET VOLUME 9.3 fL (7.4-10.4); MONO % 13.1 %; NEUT % 74.3 %; PLATELET COUNT 240 K/uL (130-400); RED BLOOD COUNT 4.96 M/uL (4.7-6.1); WHITE BLOOD COUNT 11.75 K/uL (4.8-10.8)
[2016-11-12 04:33] LABS: BUN/CREATININE RATIO 18.2 (10-20); CALCIUM 8.3 mg/dl (8.5-10.1); CREATININE 1.3 mg/dl (0.60-1.40); MAGNESIUM 2.4 mg/dl (1.8-2.4)
[2016-11-12 04:45] LABS: PHOSPHORUS 2.1 mg/dl (2.5-4.9)
[2016-11-12] MEDS: LEVOTHYROXINE 25 MCG TAB PO SCH (05:14)
[2016-11-12] MEDS: HEPARIN SOD 5000 UNIT/0.5 ML CARP SQ SCH ×3 (05:16→20:11)
[2016-11-12] MEDS ORDERED: INSULIN ASPART 100 UNITS/ML 3 ML PEN SC ONE (05:30)
[2016-11-12] MEDS: NSS + 20MEQ KCL 1000ML 1,000 ML IV SCH ×4 (06:07→23:14)
[2016-11-12] MEDS ORDERED: SODIUM PHOSPHATE 3 MMOL/1 ML INFUSION IV STA (07:15)
[2016-11-12] MEDS: SPIRONOLACTONE 100 MG TAB PO SCH (07:29)
[2016-11-12] MEDS: ATORVASTATIN 40 MG TAB PO SCH (07:30)
[2016-11-12] MEDS ORDERED: SODIUM PHOSPHATE INJ 15 MMOL in SODIUM CHLORIDE 0.9% 250ML 250 ML IV ONE (07:30)
[2016-11-12] MEDS: ASPIRIN 81 MG ECTAB PO SCH (07:30)
[2016-11-12] MEDS: CEROVITE ADV FORMULA TAB PO SCH (07:31)
[2016-11-12] MEDS: INSULIN ASPART 100 UNITS/ML 3 ML PEN SC SCH ×4 (07:34→20:12)
[2016-11-12 09:59] LABS: BUN/CREATININE RATIO 17.7 (10-20); CALCIUM 7.7 mg/dl (8.5-10.1); CREATININE 1.3 mg/dl (0.60-1.40); MAGNESIUM 2.4 mg/dl (1.8-2.4); PHOSPHORUS 2.9 mg/dl (2.5-4.9); POTASSIUM 4.1 mmol/L (3.5-5.1)
[2016-11-12 10:16] LABS: BETA-HYDROXYBUTYRATE 2.94 mg/dL (0.2-2.81)
[2016-11-12] MEDS ORDERED: METFORMIN HCL 500 MG TAB PO ONE (10:38)
--- NOTE | 2016-11-12 10:54 | Family Medicine Progress Note ---
Progress Note Date of Service Nov 12, 2016. Subjective Pt evaluation today including: conversation w/ patient, physical exam, chart review, lab review, review of studies, conversation w/ identity management consultant Pain: None reported by patient PO Intake: Has been eating PO Voiding: voiding difficulty Pleasant 66 yo male has no complaints this morning after being admitted for diabetic hyperosmolar hyperketotic state. Only concern is wondering "how this happened to him" Has been able to eat this morning Overall does not speak very much, seems confused Constitutional: + fatigue All Other Systems: Reviewed and Negative Medications Current Inpatient Medications Medications (Trade) Dose Ordered Sig/Cuauhtemoc Route Start Time Stop Time Status Last Admin Dose Admin Glucose (Glucose 40% Gel) UD PRN PO 11/11/16 15:45 12/11/16 15:44 Glucose (Glucose Chew Tab) 1 tabs UD PRN PO 11/11/16 15:45 12/11/16 15:44 Dextrose (Dextrose 50% 50ML Syringe) 50 ml UD PRN IV 11/11/16 15:45 12/11/16 15:44 Glucagon (Glucagon Inj) 1 mg UD PRN SQ 11/11/16 15:45 12/11/16 15:44 Heparin Sodium (Porcine) (Heparin Sq 5000 Unit/0.5ml) 5,000 unit Q8 SQ 11/11/16 22:00 12/11/16 21:59 11/12/16 13:46 5,000 UNIT Potassium Chloride/Sodium Chloride 1,000 ml @ 75 mls/hr [id number] IV 11/11/16 20:00 12/11/16 19:59 Future hold 11/12/16 13:46 125 MLS/HR Acetaminophen (Tylenol Tab) 650 mg Q4H PRN PO 11/11/16 17:30 12/11/16 17:29 Al Hydrox/Mg Hydrox/Simethicone (Maalox Max Susp) 15 ml Q4H PRN PO 11/11/16 17:30 12/11/16 17:29 Magnesium Hydroxide (Milk Of Magnesia Susp) 30 ml Q12H PRN PO 11/11/16 17:30 12/11/16 17:29 Ondansetron HCl (Zofran Inj) 4 mg Q6H PRN IV 11/11/16 17:30 12/11/16 17:29 Polyethylene (Miralax Powder Packet) 17 gm DAILY PRN PO 11/11/16 17:30 12/11/16 17:29 Glucose (Glucose 40% Gel) 15-30 GRAMS 15 GRAMS... UD PRN PO 11/11/16 17:30 12/11/16 17:29 Glucose (Glucose Chew Tab) 4-8 Tablets 4 Tabl... UD PRN PO 11/11/16 17:30 12/11/16 17:29 Dextrose (Dextrose 50% 50ML Syringe) 25-50ML OF 50% DW IV FOR... UD PRN IV 11/11/16 17:30 12/11/16 17:29 Glucagon (Glucagon Inj) 1 mg UD PRN SQ 11/11/16 17:30 12/11/16 17:29 Aspirin (Ecotrin Tab) 81 mg DAILY PO 11/12/16 09:00 12/12/16 08:59 11/12/16 07:30 81 MG Atorvastatin Calcium (Lipitor Tab) 40 mg DAILY PO 11/12/16 09:00 12/12/16 08:59 11/12/16 07:30 40 MG Levothyroxine Sodium (Synthroid Tab) 25 mcg DAILYBB PO 11/12/16 06:00 12/12/16 05:59 11/12/16 05:14 25 MCG Multivitamins/ Minerals (Multivitamin W/ Minerals Tab) 1 tab DAILY PO 11/12/16 09:00 12/12/16 08:59 11/12/16 07:31 1 TAB Spironolactone (Aldactone Tab) 50 mg DAILY PO 11/12/16 09:00 12/12/16 08:59 11/12/16 07:29 50 MG Hydralazine HCl (HydrALAZINE INJ) 10 mg Q6H PRN IV. 11/11/16 17:45 12/11/16 17:44 Insulin Aspart (novoLOG ASPART) SLIDING SCALE G... ACHS SC 11/12/16 07:00 12/12/16 06:59 11/12/16 17:28 17 UNITS Insulin Glargine (Lantus Solostar Pen) 25 units BID SQ 11/12/16 11:00 12/12/16 10:59 11/12/16 12:02 25 UNITS Metformin HCl (Glucophage Tab) 500 mg BIDM PO 11/12/16 16:45 12/12/16 16:44 11/12/16 17:27 500 MG Potassium/ Phosphorus/Sodium (Phospha 250 Neutral 155-852-130 Mg) 2 tab QID PO 11/12/16 19:00 12/12/16 18:59 Objective Vital Signs Date Time Temp Pulse Resp B/P (MAP) Pulse Ox O2 Delivery O2 Flow Rate FiO2 11/12/16 16:00 Room Air 11/12/16 15:56 36.9 72 20 154/83 (106) 95 Room Air 11/12/16 12:28 36.8 84 18 157/90 (112) 95 11/12/16 12:00 Room Air 11/12/16 08:06 36.7 77 18 152/63 (92) 96 11/12/16 08:00 Room Air 11/12/16 04:00 Room Air 11/12/16 03:40 37.0 75 18 160/83 (108) 94 Room Air 11/12/16 00:00 Room Air 11/12/16 00:00 36.8 72 16 150/95 (113) 94 Room Air 11/11/16 20:00 98 Nasal Cannula 3.0 Physical Exam General Appearance: no apparent distress Eyes: normal inspection, PERRL, EOMI, sclerae normal ENT: hearing grossly normal Respiratory/Chest: chest non-tender, lungs clear, normal breath sounds, no respiratory distress, no accessory muscle use Cardiovascular: regular rate, rhythm, no edema, no gallop, no JVD, no murmur Abdomen: normal bowel sounds, non tender, soft, no organomegaly, no pulsatile mass Extremities: non-tender, normal inspection, no pedal edema Neurologic/Psychiatric: no motor/sensory deficits, alert, + disoriented Skin: normal color, warm/dry, no rash Laboratory Results 11/12/16 04:10 Red Blood Count 4.96, Mean Corpuscular Volume 85.9, Mean Corpuscular Hemoglobin 28.2, Mean Corpuscular Hemoglobin Concent 32.9, Mean Platelet Volume 9.3, Neutrophils (%) (Auto) 74.3, Lymphocytes (%) (Auto) 12.2, Monocytes (%) (Auto) 13.1, Eosinophils (%) (Auto) 0.0, Basophils (%) (Auto) 0.1, Neutrophils # (Auto ) 8.74, Lymphocytes # (Auto) 1.43, Monocytes # (Auto) 1.54, Eosinophils # (Auto ) 0.00, Basophils # (Auto) 0.01 11/12/16 16:02 Test 11/12/16 00:05 11/12/16 04:10 11/12/16 12:40 11/12/16 16:02 Urine Color YELLOW Urine Appearance CLEAR (CLEAR) Urine pH 5.5 (4.5-7.5) Urine Specific [place] 1.032 (1.000-1.030) Urine Protein 1+ (NEG) Urine Glucose (UA) 3+ (NEG) Urine Ketones NEG (NEG) Urine Occult Blood NEG (NEG) Urine Nitrite NEG (NEG) Urine Bilirubin NEG (NEG) Urine Urobilinogen NEG (NEG) Urine Leukocyte Esterase NEG (NEG) Urine WBC (Auto) 1-5 /hpf (0-5) Urine RBC (Auto) 0-4 /hpf (0-4) Urine Hyaline Casts (Auto) 1-5 /lpf (0-5) Urine Epithelial Cells (Auto) 10-20 /lpf (0-5) Urine Bacteria (Auto) NEG (NEG) Urine Yeast (Auto) (NONE PRSENT) White Blood Count 11.75 K/uL (4.8-10.8) Red Blood Count 4.96 M/uL (4.7-6.1) Hemoglobin 14.0 g/dL (14.0-18.0) Hematocrit 42.6 % (42-52) Mean Corpuscular Volume 85.9 fL (80-100) Mean Corpuscular Hemoglobin 28.2 pg (25-34) Mean Corpuscular Hemoglobin Concent 32.9 g/dl (32-36) Platelet Count 240 K/uL (130-400) Mean Platelet Volume 9.3 fL (7.4-10.4) Neutrophils (%) (Auto) 74.3 % Lymphocytes (%) (Auto) 12.2 % Monocytes (%) (Auto) 13.1 % Eosinophils (%) (Auto) 0.0 % Basophils (%) (Auto) 0.1 % Neutrophils # (Auto) 8.74 K/uL (1.4-6.5) Lymphocytes # (Auto) 1.43 K/uL (1.2-3.4) Monocytes # (Auto) 1.54 K/uL (0.11-0.59) Eosinophils # (Auto) 0.00 K/uL (0-0.5) Basophils # (Auto) 0.01 K/uL (0-0.2) RDW Standard Deviation 44.8 fL (36.4-46.3) RDW Coefficient of Variation 14.2 % (11.5-14.5) Immature Granulocyte % (Auto) 0.3 % Immature Granulocyte # (Auto) 0.03 K/uL (0.00-0.02) Lyme Disease IgG Antibody NEG (NEG) Lyme Disease IgM Antibody NEG (NEG) Venous Blood pH 7.38 (7.36-7.41) Anion Gap 7.0 mmol/L (3-11) Est Creatinine Clear Calc Drug Dose 60.3 ml/min Estimated GFR () 60.3 Estimated GFR (Non- 52.0 BUN/Creatinine Ratio 16.6 (10-20) Calcium Level 8.4 mg/dl (8.5-10.1) Phosphorus Level 1.8 mg/dl (2.5-4.9) Magnesium Level 2.4 mg/dl (1.8-2.4) Beta-Hydroxybutyric Acid 5.16 mg/dL (0.2-2.81) Test 11/12/16 16:53 Bedside Glucose 295 mg/dl (70-99) Assessment and Plan 66 yo male presented in [facility], initial glucose > 700, now improving after fluid and insulin replacement, now eating [facility] Anion gap has closed, will continue to monitor Transitioned from IV insulin to SQ Recent BS-250 Diabetes Type 2 Diagnosed 1 week ago, HbA1c Appreciate certified lactation educator recommendations Started on metformin 500 BID today Need to establish home insulin regime. Acute metabolic encephalopathy improving throughout daytime apparent baseline is fully cognisant per brother Continue to monitor Fever On arrival, Temp 38.5 C; has remained afebrile since No clear source UA unremarkable CXR repeated today Lyme serologies checked and negative Continue to monitor Code status: Full VTE: Heparin SQ Dispo: Telemetry Resident Physician Supervision Note: I was present with PGY1 Dr. Rhea Camp during the history and exam. I discussed the case with the resident and agree with the findings and plan as documented in the note. Any exceptions or clarifications are listed here: none. Pt w/o any complaints of cough, sore throat, ear pain, sob, chest pain, abd pain , nausea, emesis, poor appetite, rash, joint pain during bedside rounds. His brother was present during our rounds and confirms that Mr. Mi is NOT at cognitive baseline and that he typically has intact cognition. No h/o dementia or intellectual disorder. VSS afebrile but had fever at time of ER presentation BPs mildly elevated gen - nad, sitting in chair, mild confusion but follows commands neck - no lymphadenopathy mouth - MMM, no lesions, throat clear heart - RRR, s1, s2, no murmur lungs - CTA b/l abd - soft, NT, ND, BS+, no HSM ext - no edema, no synovitis of any small/large joint skin - no rashes labs - normal anion gap mild "pseudohyponatremia" 2nd to elevated glucose FSBS range 200-300 since insulin drip discontinued lyme's IgM/IgG negative A/P: 1. uncontrolled T2DM, recent diagnosis 2. hyperosmolar nonketotic coma - improved, although still with confusion 3. encephalopathy - may be 2nd to #2, but cannot rule out other metabolic causes (infection, etc) 4. HTN 5. h/o chronic diastolic CHF - approaching euvolemia 6. respiratory acidosis at presentation - clinically resolved 7. hypophosphatemia 8. hyponatremia due to "pseudohyponatremia" from elevated glucose 9. acute kidney injury - resolved 10. fever - no source of infection found start lantus 25 units BID but suspect this will need up titration start novolog with meals - 30 correction factor/10 carb ratio - but again likely will need titration start metformin 500mg BID recheck cxr to ensure no developing pneumonia (had fever, abg with hypoxia, etc) follow cx's check b12 level in am due to #3 if still with confusion tomorrow consider head imaging brother updated Documented By: Ruben Smith MD Resident Tracking Resident Involvement: Resident Care Provided Care Provided: Adult Hospital Medicine
[2016-11-12] MEDS ORDERED: INSULIN REGULAR 250 UNITS in SODIUM CHLORIDE 0.9% 250ML 250 ML IV SCH (11:30)
[2016-11-12] MEDS: INSULIN GLARGINE SOLOSTAR 100 UNITS/ML 3 ML PEN SQ SCH ×2 (12:02→20:13)
--- NOTE | 2016-11-12 12:15 | Clinical Documentation Query ---
CLINICAL DOCUMENTATION QUERY Dr. MANUEL, In your clinical opinion is this patient being managed for: ( ) Metabolic encephalopathy in the setting of DKA ( ) Other explanation of clinical findings (Please Explain) ( ) Unable to determine (Please Define) ( ) Need to Discuss ( ) Not Agree The medical record reflects the following clinical findings, treatment, and risk factors. Clinical Indicators: 66 yo male presenting with recently diagnosed DM with glucose level of 709. Documentation reflects that pt was unable to remember his name. Cr 1.90 Treatment: 1L NSS bolus then continuous IV fluids, IV insulin bolus then gtt, serial PRP's, tele, IV rocephin, pending urine and blood cultures Risk Factors: DKA, CIARA Please clarify and document your clinical opinion in the progress notes and discharge summary. Terms such as "probable", "suspected", "likely", "questionable", "possible", or "still to be ruled out" are acceptable. IF IN AGREEMENT, YOU MUST DOCUMENT ABOVE DIAGNOSTIC STATEMENT IN DAILY PROGRESS NOTES AND DISCHARGE SUMMARY. This document is not part of the patient's record. Thank You, Twila Edmondson RN [phone]
--- NOTE | 2016-11-12 12:17 | Clinical Documentation Query ---
CLINICAL DOCUMENTATION QUERY Dr. PORTILLO, In your clinical opinion is this patient being managed for: (X ) Metabolic encephalopathy in the setting of DKA ( ) Other explanation of clinical findings (Please Explain) ( ) Unable to determine (Please Define) ( ) Need to Discuss ( ) Not Agree The medical record reflects the following clinical findings, treatment, and risk factors. Clinical Indicators: 66 yo male presenting with recently diagnosed DM with glucose level of 709. Documentation reflects that pt was unable to remember his name. Cr 1.90 Treatment: 1L NSS bolus then continuous IV fluids, IV insulin bolus then gtt, serial PRP's, tele, IV rocephin, pending urine and blood cultures Risk Factors: DKA, CIARA Please clarify and document your clinical opinion in the progress notes and discharge summary. Terms such as "probable", "suspected", "likely", "questionable", "possible", or "still to be ruled out" are acceptable. IF IN AGREEMENT, YOU MUST DOCUMENT ABOVE DIAGNOSTIC STATEMENT IN DAILY PROGRESS NOTES AND DISCHARGE SUMMARY. This document is not part of the patient's record. Thank You, Twila Edmondson, RN [phone]
[2016-11-12 14:03] LABS: BUN/CREATININE RATIO 16.9 (10-20); CALCIUM 8.1 mg/dl (8.5-10.1); CREATININE 1.4 mg/dl (0.60-1.40); MAGNESIUM 2.2 mg/dl (1.8-2.4); PHOSPHORUS 2.2 mg/dl (2.5-4.9); POTASSIUM 4.5 mmol/L (3.5-5.1)
[2016-11-12 14:35] LABS: LYME DISEASE AB IGG NEG (NEG)
[2016-11-12 14:38] LABS: LYME DISEASE AB IGM NEG (NEG)
[2016-11-12 14:42] LABS: BETA-HYDROXYBUTYRATE 4.06 mg/dL (0.2-2.81)
--- NOTE | 2016-11-12 15:10 | DIAGNOSTIC IMAGING REPORT ---
CHEST 2 VIEWS ROUTINE CLINICAL HISTORY: fever, HHS - ?pnea dyspnea. Fever. COMPARISON STUDY: 11/11/2016 FINDINGS: Stable cardia megaly. Diaphragms smooth. Lungs remain clear. IMPRESSION: Moderate stable cardia megaly. Lungs remain clear. Electronically signed by: Robert Villalta M.D. 11/12/2016 3:09 PM Dictated Date/Time: 11/12/2016 3:08 PM
[2016-11-12 16:34] LABS: BUN/CREATININE RATIO 16.6 (10-20); CALCIUM 8.4 mg/dl (8.5-10.1); CREATININE 1.4 mg/dl (0.60-1.40); MAGNESIUM 2.4 mg/dl (1.8-2.4); PHOSPHORUS 1.8 mg/dl (2.5-4.9); POTASSIUM 4.6 mmol/L (3.5-5.1)
[2016-11-12 16:46] LABS: BETA-HYDROXYBUTYRATE 5.16 mg/dL (0.2-2.81)
[2016-11-12] MEDS: METFORMIN HCL 500 MG TAB PO SCH (17:27)
[2016-11-12] MEDS: POT PHOSPHATE MONOBASIC W/ SOD TAB PO SCH ×2 (20:10→22:08)
[2016-11-12] MEDS ORDERED: QUETIAPINE FUMARATE 25 MG TAB PO PRN (20:30)
[2016-11-13] VITALS (7 sets, daily range): BP systolic 148–187; BP diastolic 62–101; PULSE 78–93; TEMP 36.5–37.2; O2SAT 96–98; Ht 167.6 cm; Wt 112.0 kg
[2016-11-13] MEDS: HydrALAZINE HCL 20 MG/ML VIAL IV. PRN (04:53)
[2016-11-13] MEDS: LEVOTHYROXINE 25 MCG TAB PO SCH (05:48)
[2016-11-13] MEDS: HEPARIN SOD 5000 UNIT/0.5 ML CARP SQ SCH ×3 (05:49→21:35)
[2016-11-13 07:07] LABS: BUN/CREATININE RATIO 14.1 (10-20); CALCIUM 8.2 mg/dl (8.5-10.1); CREATININE 1.1 mg/dl (0.60-1.40); POTASSIUM 3.8 mmol/L (3.5-5.1)
[2016-11-13] MEDS: INSULIN ASPART 100 UNITS/ML 3 ML PEN SC SCH ×4 (07:34→21:34)
[2016-11-13] MEDS: CEROVITE ADV FORMULA TAB PO SCH (07:35)
[2016-11-13] MEDS: POT PHOSPHATE MONOBASIC W/ SOD TAB PO SCH ×4 (07:36→21:31)
[2016-11-13] MEDS: ASPIRIN 81 MG ECTAB PO SCH (07:36)
[2016-11-13] MEDS: ATORVASTATIN 40 MG TAB PO SCH (07:36)
[2016-11-13] MEDS: METFORMIN HCL 500 MG TAB PO SCH ×2 (07:36→16:43)
[2016-11-13] MEDS: SPIRONOLACTONE 100 MG TAB PO SCH (07:37)
[2016-11-13] MEDS ORDERED: INSULIN GLARGINE SOLOSTAR 100 UNITS/ML 3 ML PEN SQ SCH (09:00)
[2016-11-13 09:02] LABS: ESTIMATED AVERAGE GLUCOSE 344 mg/dl; HA1C FLAG Normal (Normal)
[2016-11-13] MEDS: INSULIN GLARGINE SOLOSTAR 100 UNITS/ML 3 ML PEN SQ SCH ×2 (09:10→21:34)
[2016-11-13] MEDS: NSS + 20MEQ KCL 1000ML 1,000 ML IV SCH (10:21)
[2016-11-13] MEDS ORDERED: QUETIAPINE FUMARATE 25 MG TAB PO ONE (15:30)
[2016-11-13 16:17] LABS: CKMB/CK RATIO 2.8 (0-3.0)
--- NOTE | 2016-11-13 17:08 | DIAGNOSTIC IMAGING REPORT ---
ORBIT RADIOGRAPHS 3 VIEWS HISTORY: pre-MRI screening. COMPARISON: None. FINDINGS: There are no radiopaque foreign bodies identified within the orbits. IMPRESSION: No radiopaque foreign bodies identified within the orbits. Electronically signed by: Lauro Galloway M.D. 11/13/2016 5:07 PM Dictated Date/Time: 11/13/2016 5:07 PM
--- NOTE | 2016-11-13 17:10 | DIAGNOSTIC IMAGING REPORT ---
KUB CLINICAL HISTORY: MRI screening COMPARISON STUDY: 08/26/2011 FINDINGS: There is no pathologic bowel dilatation. No radiopaque intra-abdominal or pelvic foreign bodies are visualized. There are electrodes which are extraneous to the patient. IMPRESSION: No metallic foreign bodies identified. Electronically signed by: Lauro Galloway M.D. 11/13/2016 5:08 PM Dictated Date/Time: 11/13/2016 5:07 PM
--- NOTE | 2016-11-13 19:21 | Family Medicine Progress Note ---
Progress Note Date of Service Nov 13, 2016. Subjective Pt evaluation today including: conversation w/ patient, conversation w/ family , physical exam, chart review, lab review, review of studies, review of inpatient medication list Pain: No pain reported at this time PO Intake: Tolerating PO well. Voiding: no voiding problems, no incontinence This pleasant 66 yo male, 2 days after presenting with HHS, continues to report word finding difficulty, memory loss, and confusion He reports visual hallucinations and flashbacks He reports concern for management of his diabetes and his memory when he is discharged. Male : + urinary frequency Neurologic: + memory loss Psychiatric: + problem reported (hallucinations, likely related to acute metabolic encephalopathy) Endo: + excessive thirst, + excessive urination All Other Systems: Reviewed and Negative Medications Current Inpatient Medications Medications (Trade) Dose Ordered Sig/Cuauhtemoc Route Start Time Stop Time Status Last Admin Dose Admin Glucose (Glucose 40% Gel) UD PRN PO 11/11/16 15:45 12/11/16 15:44 Glucose (Glucose Chew Tab) 1 tabs UD PRN PO 11/11/16 15:45 12/11/16 15:44 Dextrose (Dextrose 50% 50ML Syringe) 50 ml UD PRN IV 11/11/16 15:45 12/11/16 15:44 Glucagon (Glucagon Inj) 1 mg UD PRN SQ 11/11/16 15:45 12/11/16 15:44 Heparin Sodium (Porcine) (Heparin Sq 5000 Unit/0.5ml) 5,000 unit Q8 SQ 11/11/16 22:00 12/11/16 21:59 11/13/16 21:35 5,000 UNIT Acetaminophen (Tylenol Tab) 650 mg Q4H PRN PO 11/11/16 17:30 12/11/16 17:29 Al Hydrox/Mg Hydrox/Simethicone (Maalox Max Susp) 15 ml Q4H PRN PO 11/11/16 17:30 12/11/16 17:29 Magnesium Hydroxide (Milk Of Magnesia Susp) 30 ml Q12H PRN PO 11/11/16 17:30 12/11/16 17:29 Ondansetron HCl (Zofran Inj) 4 mg Q6H PRN IV 11/11/16 17:30 12/11/16 17:29 Polyethylene (Miralax Powder Packet) 17 gm DAILY PRN PO 11/11/16 17:30 12/11/16 17:29 Glucose (Glucose 40% Gel) 15-30 GRAMS 15 GRAMS... UD PRN PO 11/11/16 17:30 12/11/16 17:29 Glucose (Glucose Chew Tab) 4-8 Tablets 4 Tabl... UD PRN PO 11/11/16 17:30 12/11/16 17:29 Dextrose (Dextrose 50% 50ML Syringe) 25-50ML OF 50% DW IV FOR... UD PRN IV 11/11/16 17:30 12/11/16 17:29 Glucagon (Glucagon Inj) 1 mg UD PRN SQ 11/11/16 17:30 12/11/16 17:29 Aspirin (Ecotrin Tab) 81 mg DAILY PO 11/12/16 09:00 12/12/16 08:59 11/13/16 07:36 81 MG Atorvastatin Calcium (Lipitor Tab) 40 mg DAILY PO 11/12/16 09:00 12/12/16 08:59 11/13/16 07:36 40 MG Levothyroxine Sodium (Synthroid Tab) 25 mcg DAILYBB PO 11/12/16 06:00 12/12/16 05:59 11/13/16 05:48 25 MCG Multivitamins/ Minerals (Multivitamin W/ Minerals Tab) 1 tab DAILY PO 11/12/16 09:00 12/12/16 08:59 11/13/16 07:35 1 TAB Spironolactone (Aldactone Tab) 50 mg DAILY PO 11/12/16 09:00 12/12/16 08:59 11/13/16 07:37 50 MG Hydralazine HCl (HydrALAZINE INJ) 10 mg Q6H PRN IV. 11/11/16 17:45 12/11/16 17:44 11/13/16 04:53 10 MG Insulin Aspart (novoLOG ASPART) SLIDING SCALE G... ACHS SC 11/12/16 07:00 12/12/16 06:59 11/13/16 21:34 6 UNITS Metformin HCl (Glucophage Tab) 500 mg BIDM PO 11/12/16 16:45 12/12/16 16:44 11/13/16 16:43 500 MG Potassium/ Phosphorus/Sodium (Phospha 250 Neutral 155-852-130 Mg) 2 tab QID PO 11/12/16 19:00 12/12/16 18:59 11/13/16 21:31 2 TAB Quetiapine Fumarate (seroQUEL TAB) 12.5 mg HS PRN PO 11/12/16 20:30 12/12/16 20:29 Insulin Glargine (Lantus Solostar Pen) 35 units BID SQ 11/13/16 09:00 12/12/16 10:59 11/13/16 21:34 35 UNITS Gadobutrol (Gadavist) 11 mmol UD PRN IV 11/13/16 20:30 11/17/16 20:29 Objective Vital Signs Date Time Temp Pulse Resp B/P (MAP) Pulse Ox O2 Delivery O2 Flow Rate FiO2 11/13/16 19:33 36.9 92 18 176/99 (124) 97 Room Air 11/13/16 16:00 36.8 82 20 174/89 (117) 98 Room Air 11/13/16 16:00 Room Air 11/13/16 12:00 Room Air 11/13/16 11:32 36.8 93 18 148/62 (90) 98 11/13/16 08:30 36.5 78 18 154/62 (92) 97 11/13/16 08:00 Room Air 11/13/16 05:46 169/91 (117) 11/13/16 04:45 187/100 (129) 11/13/16 04:17 37.2 93 18 178/101 (126) 96 Room Air 11/13/16 04:00 Room Air 11/12/16 23:59 Room Air 11/12/16 23:50 36.9 71 16 172/98 (122) 97 Room Air Physical Exam General Appearance: no apparent distress Eyes: normal inspection, EOMI, sclerae normal ENT: hearing grossly normal, pharynx normal Neck: supple, no JVD Respiratory/Chest: lungs clear, normal breath sounds, no respiratory distress, no accessory muscle use Cardiovascular: regular rate, rhythm, no edema, no gallop, no JVD, no murmur Abdomen: normal bowel sounds, non tender, soft, no organomegaly, no pulsatile mass Extremities: normal range of motion, non-tender, no pedal edema Neurologic/Psychiatric: desk reporter II-XII nml as tested, no motor/sensory deficits, alert, + pertinent finding (word finding difficulty, confusion, hallucinations) Skin: normal color Laboratory Results 11/13/16 06:05 Test 11/13/16 06:05 11/13/16 15:33 11/13/16 20:39 Anion Gap 9.0 mmol/L (3-11) Est Creatinine Clear Calc Drug Dose 78.0 ml/min Estimated GFR () 80.6 Estimated GFR (Non- 69.6 BUN/Creatinine Ratio 14.1 (10-20) Estimated Average Glucose 344 mg/dl Hemoglobin A1c 13.6 % (4.5-5.6) Calcium Level 8.2 mg/dl (8.5-10.1) Vitamin B12 Level 1883 pg/mL (211-911) Total Creatine Kinase 65 U/L (39-308) Creatine Kinase MB 1.8 ng/ml (0.5-3.6) Creatine Kinase MB Ratio 2.8 (0-3.0) Troponin I < 0.015 ng/ml (0-0.045) Bedside Glucose 215 mg/dl (70-99) Assessment and Plan This pleasant 66 yo man who presented with HHS continues to struggle with confusion and word finding difficulties HHS Resolved, DCd KCl solution today. Diabetes mellitus Increased his glargine level to 35 Units BID to titrate glucose control Continue metformin 500 mg BID and novolog sliding scale Acute metabolic encephalopathy New reports of hallucinations and word finding difficulties are beyond what would be expected from his hyperketotic "coma" both in timeframe and quality. WIll perform brain MRI today to rule out any ischemic changes Will check cardiac enzymes today One dose of 12.5 quetiapine given this afternoon to help with anxiety about cognitive issues reported by patient Consider checking ammmonia levels and RPR depending on results Full code Dispo: reamains on telemetry. Isolated vtachy episodes this afternoon VTE: Heparin SQ Resident Physician Supervision Note: I was present with PGY1 Dr. Rhea Camp during the history and exam. I discussed the case with the resident and agree with the findings and plan as documented in the note. Any exceptions or clarifications are listed here: none. Pt alert/oriented to place/time/year/person but continues with word-finding difficulties, visual hallucinations, anxiety. Was walking in hallway today and "felt off" - reported seeing things in his visual field. Tele with one run of 6-7 beats of NSV-T. VSS although BPs have been labile gen - NAD, no dysarthria or true aphasia - word-finding difficulties eyes - no nystagmus, EOMI mouth - MMM, no lesions heart - RRR, s1, s2, 1/6 KENNY LSB lungs - CTA b/l abd - soft, NT, ND, BS+, no HSM ext - no edema neuro - CN 3-12 intact, strength 5/5 x 4 exts, no dysmetria finger/nose/finger maneuver, gait - no true ataxia labs - CBC with minimal leukocytosis A/P: 1. uncontrolled T2DM - improving with intensive insulin regimen; adjusting lantus/novolog; cont metformin. 2. hyperosmolar nonketotic coma - resolved. 3. encephalopathy - unclear etiology - plan MRI brain w/ contrast - r/o subacute stroke, mass, etc. 4. HTN - increase beta gael. 5. hallucinations - likely due to #3 - metabolic causes not found (b12, tsh, etc normal). Thus far no infectious etiology found, although had fever at admission. Seroquel 12.5mg prn if necessary as he is anxious/distraught by the hallucinations. 6. NSV-T - continue beta gael. Troponins negative. Asymptomatic. Follow. brother updated Ruben Smith MD Resident Tracking Resident Involvement: Resident Care Provided Care Provided: Adult Hospital Medicine
[2016-11-13] MEDS ORDERED: GADAVIST IV PRN (20:30)
--- NOTE | 2016-11-13 20:49 | DIAGNOSTIC IMAGING REPORT ---
MRI OF THE BRAIN WITHOUT AND WITH IV CONTRAST CLINICAL HISTORY: Biliary, hallucinations, hyperglycemia. COMPARISON STUDY: No previous studies for comparison. TECHNIQUE: MRI of the brain was performed from the vertex to the skull base utilizing various T1 and T2 weighted sequences. Following the IV administration of 11 mL of Gadavist contrast, additional enhanced images were obtained. FINDINGS: Sagittal T1, axial diffusion, proton density and T2 weighted axial, coronal FLAIR, and pre and post axial T1-weighted images were acquired. These were supplemented with post gadolinium coronal T1 weighted images. There is a subtle focus of restricted water diffusion involving the left medial occipital lobe. This likely corresponds to a subacute infarct. A short-term follow-up MRI study is recommended. There is a focus of increased FLAIR signal within the left medial temporal lobe/hippocampal region. Postcontrast images reveal a 14 mm area of corresponding enhancement. There is no significant mass effect. Diagnostic considerations include neoplasm, limbic encephalitis, infection, and less likely post infarct enhancement. There is no evidence of ventricular dilatation. There are foci of increased T2 signal within the left mastoid, likely inflammatory. There are few scattered foci of increased T2 signal within the white matter, likely on a small vessel basis. There are no abnormal flow voids. IMPRESSION: 1. Left medial occipital lobe edema and restricted water diffusion, likely representing a subacute infarct. A short-term follow-up MRI study is recommended (6 weeks). 2. Focus of increased FLAIR signal and post gadolinium enhancement involving the left medial temporal lobe/hippocampal region. This measures approximately 14 mm. Diagnostic considerations include neoplasm, limbic encephalitis, infection, and less likely postinfarct enhancement. 3. Inflammatory changes within the left mastoid Electronically signed by: Lauro Galloway M.D. 11/13/2016 8:47 PM Dictated Date/Time: 11/13/2016 8:31 PM
--- NOTE | 2016-11-13 22:35 | Progress Note ---
Progress Note Date of Service Nov 13, 2016. Progress Note MRI brain results reviewed. Possible subacute stroke left occipital lobe. This may explain visual disturbances and difficulty walking from such. There is also an abnormality in the left temporal lobe/hippocampus. ?limbic encephalitis? vs stroke vs other etiology. In light of recent fever, delirium, hallucinations, etc - will add acyclovir to cover for possible HSV. Will ask neuro to see in AM. May need LP. Ruben Smith MD
[2016-11-13] MEDS: ACYCLOVIR SOD INJ 750 MG in DEXTROSE 5% 250ML 250 ML IV SCH (23:37)
[2016-11-14] VITALS (11 sets, daily range): BP systolic 125–194; BP diastolic 76–102; PULSE 76–91; TEMP 36.8–37.2; O2SAT 93–97
[2016-11-14] MEDS: HydrALAZINE HCL 20 MG/ML VIAL IV. PRN ×2 (00:11→11:45)
[2016-11-14] MEDS: CEFTRIAXONE SOD INJ 2,000 MG in DEXTROSE 5% 50ML 50 ML IV SCH ×3 (00:31→12:00)
[2016-11-14] MEDS ORDERED: LABETALOL HCL 100 MG TAB PO ONE (04:45)
[2016-11-14] MEDS: ACYCLOVIR SOD INJ 750 MG in DEXTROSE 5% 250ML 250 ML IV SCH (05:51)
[2016-11-14] MEDS: LEVOTHYROXINE 25 MCG TAB PO SCH (05:51)
[2016-11-14 06:08] LABS: BASO % 0.2 %; BASO ABS # 0.02 K/uL (0-0.2); COMPLETE YES; EOS % 0.8 %; HEMATOCRIT 38.9 % (42-52); IG% 0.6 %; LYMPH % 16.9 %; LYMPH ABS # 1.72 K/uL (1.2-3.4); MEAN CELL VOLUME 84.6 fL (80-100); MEAN CORPUSCULAR HEMOGLOBIN 28.5 pg (25-34); MEAN CORPUSCULAR HGB CONC 33.7 g/dl (32-36); MEAN PLATELET VOLUME 9.3 fL (7.4-10.4); MONO % 8.5 %; PLATELET COUNT 214 K/uL (130-400); WHITE BLOOD COUNT 10.16 K/uL (4.8-10.8)
[2016-11-14 06:41] LABS: BUN/CREATININE RATIO 13.3 (10-20); CALCIUM 8.3 mg/dl (8.5-10.1); CREATININE 1.1 mg/dl (0.60-1.40); POTASSIUM 3.6 mmol/L (3.5-5.1)
[2016-11-14] MEDS: ASPIRIN 81 MG ECTAB PO SCH (08:03)
[2016-11-14] MEDS: CEROVITE ADV FORMULA TAB PO SCH (08:03)
[2016-11-14] MEDS: ATORVASTATIN 40 MG TAB PO SCH (08:03)
[2016-11-14] MEDS: METFORMIN HCL 500 MG TAB PO SCH ×2 (08:03→17:51)
[2016-11-14] MEDS: SPIRONOLACTONE 100 MG TAB PO SCH (08:04)
[2016-11-14] MEDS: POT PHOSPHATE MONOBASIC W/ SOD TAB PO SCH ×4 (08:04→19:58)
[2016-11-14] MEDS: INSULIN ASPART 100 UNITS/ML 3 ML PEN SC SCH ×4 (08:07→21:16)
[2016-11-14] MEDS: INSULIN GLARGINE SOLOSTAR 100 UNITS/ML 3 ML PEN SQ SCH ×2 (08:08→21:16)
--- NOTE | 2016-11-14 09:32 | Neurology Consultation ---
Neurology Consultation Date of Consultation: Nov 14, 2016. Attending Physician: Ruben Smith MD Primary Care Physician: Livier Gamble Reason for Consultation: Change in mental status, abnormal MRI History of Present Illness Source: hospital records The patient is a 65-year-old male group home resident who presented to the hospital 3 days ago for further evaluation of persistent confusion over the past few days in the context of hyperglycemia. His blood sugar was reportedly over 600 and initial lab evaluation was consistent with diabetic ketoacidosis. The patient remains considerably confused and is an unreliable historian. As this patient's confusion persisted a brain MRI was ordered which revealed a subacute infarct within the medial left occipital lobe as well as signal changes within the medial left temporal lobe and hippocampus including abnormal post contrast enhancement in this area. The possibility of encephalitis, versus neoplasm versus post infarct enhancement was considered. I reviewed the images as well as the radiologist's interpretation of this test and agree with the reported findings. It is notable that the observed abnormalities are within the vascular territory of the left posterior cerebral artery per my assessment. Past medical history is notable for recently diagnosed diabetes mellitus, coronary artery disease, stage III kidney disease, hypertension, and hypothyroidism. Outpatient medications include aspirin, Lipitor, Synthroid, Cozaar, and Aldactone. Electrocardiogram completed upon presentation revealed sinus tachycardia, 120 bpm. No known history of atrial fibrillation. The patient had a mild fever upon presentation as well, 38.6 as well as a mild leukocytosis. LFTs are normal. Past Medical/Surgical History Medical Problems: (1) Altered mental state Status: Acute (2) Dehydration Status: Acute (3) Fever Status: Acute (4) Hyperglycemia Status: Acute (5) Renal insufficiency Status: Acute Family History There is a family history of coronary artery disease and stroke Social History Smoking Status: Never smoker Smokeless Tobacco Use: No Alcohol Use: none Drug Use: none Marital Status: Occupation Status: retired Allergies Coded Allergies: BEE STING (Verified Allergy, Severe, breathing problems, 01/30/13) Current Inpatient Medications Current Inpatient Medications Medications (Trade) Dose Ordered Sig/Cuauhtemoc Route Start Time Stop Time Status Last Admin Dose Admin Glucose (Glucose 40% Gel) UD PRN PO 11/11/16 15:45 12/11/16 15:44 Glucose (Glucose Chew Tab) 1 tabs UD PRN PO 11/11/16 15:45 12/11/16 15:44 Dextrose (Dextrose 50% 50ML Syringe) 50 ml UD PRN IV 11/11/16 15:45 12/11/16 15:44 Glucagon (Glucagon Inj) 1 mg UD PRN SQ 11/11/16 15:45 12/11/16 15:44 Heparin Sodium (Porcine) (Heparin Sq 5000 Unit/0.5ml) 5,000 unit Q8 SQ 11/11/16 22:00 12/11/16 21:59 Future Hold 11/13/16 21:35 5,000 UNIT Acetaminophen (Tylenol Tab) 650 mg Q4H PRN PO 11/11/16 17:30 12/11/16 17:29 Al Hydrox/Mg Hydrox/Simethicone (Maalox Max Susp) 15 ml Q4H PRN PO 11/11/16 17:30 12/11/16 17:29 Magnesium Hydroxide (Milk Of Magnesia Susp) 30 ml Q12H PRN PO 11/11/16 17:30 12/11/16 17:29 Ondansetron HCl (Zofran Inj) 4 mg Q6H PRN IV 11/11/16 17:30 12/11/16 17:29 Polyethylene (Miralax Powder Packet) 17 gm DAILY PRN PO 11/11/16 17:30 12/11/16 17:29 Glucose (Glucose 40% Gel) 15-30 GRAMS 15 GRAMS... UD PRN PO 11/11/16 17:30 12/11/16 17:29 Glucose (Glucose Chew Tab) 4-8 Tablets 4 Tabl... UD PRN PO 11/11/16 17:30 12/11/16 17:29 Dextrose (Dextrose 50% 50ML Syringe) 25-50ML OF 50% DW IV FOR... UD PRN IV 11/11/16 17:30 12/11/16 17:29 Glucagon (Glucagon Inj) 1 mg UD PRN SQ 11/11/16 17:30 12/11/16 17:29 Aspirin (Ecotrin Tab) 81 mg DAILY PO 11/12/16 09:00 12/12/16 08:59 11/14/16 08:03 81 MG Atorvastatin Calcium (Lipitor Tab) 40 mg DAILY PO 11/12/16 09:00 12/12/16 08:59 11/14/16 08:03 40 MG Levothyroxine Sodium (Synthroid Tab) 25 mcg DAILYBB PO 11/12/16 06:00 12/12/16 05:59 11/14/16 05:51 25 MCG Multivitamins/ Minerals (Multivitamin W/ Minerals Tab) 1 tab DAILY PO 11/12/16 09:00 12/12/16 08:59 11/14/16 08:03 1 TAB Spironolactone (Aldactone Tab) 50 mg DAILY PO 11/12/16 09:00 12/12/16 08:59 11/14/16 08:04 50 MG Hydralazine HCl (HydrALAZINE INJ) 10 mg Q6H PRN IV. 11/11/16 17:45 12/11/16 17:44 11/14/16 00:11 10 MG Insulin Aspart (novoLOG ASPART) SLIDING SCALE G... ACHS SC 11/12/16 07:00 12/12/16 06:59 11/14/16 08:07 7 UNITS Metformin HCl (Glucophage Tab) 500 mg BIDM PO 11/12/16 16:45 12/12/16 16:44 11/14/16 08:03 500 MG Potassium/ Phosphorus/Sodium (Phospha 250 Neutral 155-852-130 Mg) 2 tab QID PO 11/12/16 19:00 12/12/16 18:59 11/14/16 08:04 2 TAB Quetiapine Fumarate (seroQUEL TAB) 12.5 mg HS PRN PO 11/12/16 20:30 12/12/16 20:29 Insulin Glargine (Lantus Solostar Pen) 35 units BID SQ 11/13/16 09:00 12/12/16 10:59 11/14/16 08:08 35 UNITS Gadobutrol (Gadavist) 11 mmol UD PRN IV 11/13/16 20:30 11/17/16 20:29 Acyclovir Sodium 750 mg/Dextrose 265 ml @ 265 mls/hr Q8 IV 11/13/16 23:00 11/15/16 22:59 11/14/16 05:51 265 MLS/HR Ceftriaxone Sodium 2000 mg/ Dextrose 70 ml @ 100 mls/hr Q12H IV 11/14/16 00:00 11/16/16 00:00 11/14/16 00:31 100 MLS/HR Review of Systems A review of systems cannot be obtained for this patient given his altered mental status Physical Exam Vital Signs (Past 24 Hrs): Date Time Temp Pulse Resp B/P (MAP) Pulse Ox O2 Delivery O2 Flow Rate FiO2 11/14/16 07:45 36.9 83 18 147/79 (101) 97 11/14/16 06:04 156/101 (119) 11/14/16 04:26 37.0 85 18 194/99 (130) 96 Room Air 11/14/16 04:00 Room Air 11/14/16 00:30 191/101 (131) 11/14/16 00:00 37.2 76 18 187/96 (126) 97 Room Air 11/13/16 23:59 Room Air 11/13/16 20:00 Room Air 11/13/16 19:33 36.9 92 18 176/99 (124) 97 Room Air 11/13/16 16:00 36.8 82 20 174/89 (117) 98 Room Air 11/13/16 16:00 Room Air 11/13/16 12:00 Room Air 11/13/16 11:32 36.8 93 18 148/62 (90) 98 The patient is a well-developed elderly male, he is lying comfortably in bed and does not appear to be in significant distress. He does become mildly agitated with repeated questioning. The patient is alert and oriented to person only. Recent and remote memory are impaired. Attention and concentration are impaired. The patient has some difficulty naming objects and made some word substitutions. He was able to read simple text and repeat phrases, however. Fund of knowledge cannot be reliably assessed. Confrontation testing of visual concepcion reveals a right visual field deficit. Visual acuity normal. Pupils equal round reactive to light and accommodation. Eye movements normal. Facial sensation intact. There is normal facial symmetry and strength. Hearing intact bilaterally. Palate elevates to midline. Shoulder shrug intact. Tongue protrudes to midline. Sensory examination reveals a length dependent deficit to vibration, temperature, and light touch. Deep tendon reflexes are diffusely diminished, absent at the Achilles tendons. Plantar responses silent. There is no dysdiadochokinesia or dysmetria with finger to nose or heel to chase. The optic disks and posterior segments cannot be adequately visualized due to poor patient cooperation. Carotid pulses normal bilaterally, no bruits to auscultation. Gait and station cannot be safely assessed. Muscle strength is normal for the arms and legs bilaterally. Muscle tone normal throughout. No atrophy. No abnormal movements observed. Laboratory Results Past 24 Hours: 11/14/16 05:47 Red Blood Count 4.60, Mean Corpuscular Volume 84.6, Mean Corpuscular Hemoglobin 28.5, Mean Corpuscular Hemoglobin Concent 33.7, Mean Platelet Volume 9.3, Neutrophils (%) (Auto) 73.0, Lymphocytes (%) (Auto) 16.9, Monocytes (%) (Auto) 8.5, Eosinophils (%) (Auto) 0.8, Basophils (%) (Auto) 0.2, Neutrophils # (Auto) 7.42, Lymphocytes # (Auto) 1.72, Monocytes # (Auto) 0.86, Eosinophils # (Auto) 0.08, Basophils # (Auto) 0.02 11/14/16 05:47 Test 11/13/16 15:33 11/14/16 05:47 11/14/16 06:52 11/14/16 07:41 Total Creatine Kinase 65 U/L (39-308) Creatine Kinase MB 1.8 ng/ml (0.5-3.6) Creatine Kinase MB Ratio 2.8 (0-3.0) Troponin I < 0.015 ng/ml (0-0.045) White Blood Count 10.16 K/uL (4.8-10.8) Red Blood Count 4.60 M/uL (4.7-6.1) Hemoglobin 13.1 g/dL (14.0-18.0) Hematocrit 38.9 % (42-52) Mean Corpuscular Volume 84.6 fL (80-100) Mean Corpuscular Hemoglobin 28.5 pg (25-34) Mean Corpuscular Hemoglobin Concent 33.7 g/dl (32-36) Platelet Count 214 K/uL (130-400) Mean Platelet Volume 9.3 fL (7.4-10.4) Neutrophils (%) (Auto) 73.0 % Lymphocytes (%) (Auto) 16.9 % Monocytes (%) (Auto) 8.5 % Eosinophils (%) (Auto) 0.8 % Basophils (%) (Auto) 0.2 % Neutrophils # (Auto) 7.42 K/uL (1.4-6.5) Lymphocytes # (Auto) 1.72 K/uL (1.2-3.4) Monocytes # (Auto) 0.86 K/uL (0.11-0.59) Eosinophils # (Auto) 0.08 K/uL (0-0.5) Basophils # (Auto) 0.02 K/uL (0-0.2) RDW Standard Deviation 44.9 fL (36.4-46.3) RDW Coefficient of Variation 14.5 % (11.5-14.5) Immature Granulocyte % (Auto) 0.6 % Immature Granulocyte # (Auto) 0.06 K/uL (0.00-0.02) Anion Gap 6.0 mmol/L (3-11) Est Creatinine Clear Calc Drug Dose 78.1 ml/min Estimated GFR () 80.6 Estimated GFR (Non- 69.6 BUN/Creatinine Ratio 13.3 (10-20) Calcium Level 8.3 mg/dl (8.5-10.1) Bedside Glucose 165 mg/dl (70-99) Imaging My review of this patient's brain MRI as described in the history of present illness. An electroencephalogram was completed at bedside this morning. I reviewed the tracing end appreciate intermittent left temporal slowing and sharps suggesting focal neuronal dysfunction. Full review pending. Impression Encephalopathy. 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 However, encephalitis (HSV-1?) or neoplasm not excluded given the observed abnormalities within the left temporal lobe. 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 Arciniega I would also recommend MR angiography of the head and neck. Case discussed with hospitalist service
--- NOTE | 2016-11-14 09:55 | EEG Procedure Note ---
EEG Procedure Note Date of Service Nov 14, 2016. Start / End Times Start Time: 8:26 AM End Time: 8:46 AM Referring Physician Duy Carver History This is a 66-year-old male who presents with change in mental status. EEG for evaluation of possible seizure etiology. Home Medication List Scheduled Aspirin (Aspirin Ec), 81 MG PO DAILY Atorvastatin (Lipitor), 40 MG PO DAILY Cholecalciferol (Vitamin D3), 2 CAP PO DAILY Epinephrine (Epipen), 0.3 MG IM UD Fish Oil ([place]-3), 1 CAP PO DAILY Furosemide (Lasix), 80 MG PO DAILY Levothyroxine Sodium (Synthroid), 25 MCG PO DAILY Losartan Potassium (Cozaar), 25 MG PO DAILY Multivitamins/Minerals (Mvi With Minerals), 1 TAB PO DAILY Spironolactone (Aldactone), 50 MG PO DAILY Inpatient Medication List Current Inpatient Medications Medications (Trade) Dose Ordered Sig/Cuauhtemoc Route Start Time Stop Time Status Last Admin Dose Admin Glucose (Glucose 40% Gel) UD PRN PO 11/11/16 15:45 12/11/16 15:44 Glucose (Glucose Chew Tab) 1 tabs UD PRN PO 11/11/16 15:45 12/11/16 15:44 Dextrose (Dextrose 50% 50ML Syringe) 50 ml UD PRN IV 11/11/16 15:45 12/11/16 15:44 Glucagon (Glucagon Inj) 1 mg UD PRN SQ 11/11/16 15:45 12/11/16 15:44 Heparin Sodium (Porcine) (Heparin Sq 5000 Unit/0.5ml) 5,000 unit Q8 SQ 11/11/16 22:00 12/11/16 21:59 Future Hold 11/13/16 21:35 5,000 UNIT Acetaminophen (Tylenol Tab) 650 mg Q4H PRN PO 11/11/16 17:30 12/11/16 17:29 Al Hydrox/Mg Hydrox/Simethicone (Maalox Max Susp) 15 ml Q4H PRN PO 11/11/16 17:30 12/11/16 17:29 Magnesium Hydroxide (Milk Of Magnesia Susp) 30 ml Q12H PRN PO 11/11/16 17:30 12/11/16 17:29 Ondansetron HCl (Zofran Inj) 4 mg Q6H PRN IV 11/11/16 17:30 12/11/16 17:29 Polyethylene (Miralax Powder Packet) 17 gm DAILY PRN PO 11/11/16 17:30 12/11/16 17:29 Glucose (Glucose 40% Gel) 15-30 GRAMS 15 GRAMS... UD PRN PO 11/11/16 17:30 12/11/16 17:29 Glucose (Glucose Chew Tab) 4-8 Tablets 4 Tabl... UD PRN PO 11/11/16 17:30 12/11/16 17:29 Dextrose (Dextrose 50% 50ML Syringe) 25-50ML OF 50% DW IV FOR... UD PRN IV 11/11/16 17:30 12/11/16 17:29 Glucagon (Glucagon Inj) 1 mg UD PRN SQ 11/11/16 17:30 12/11/16 17:29 Aspirin (Ecotrin Tab) 81 mg DAILY PO 11/12/16 09:00 12/12/16 08:59 11/14/16 08:03 81 MG Atorvastatin Calcium (Lipitor Tab) 40 mg DAILY PO 11/12/16 09:00 12/12/16 08:59 11/14/16 08:03 40 MG Levothyroxine Sodium (Synthroid Tab) 25 mcg DAILYBB PO 11/12/16 06:00 12/12/16 05:59 11/14/16 05:51 25 MCG Multivitamins/ Minerals (Multivitamin W/ Minerals Tab) 1 tab DAILY PO 11/12/16 09:00 12/12/16 08:59 11/14/16 08:03 1 TAB Spironolactone (Aldactone Tab) 50 mg DAILY PO 11/12/16 09:00 12/12/16 08:59 11/14/16 08:04 50 MG Hydralazine HCl (HydrALAZINE INJ) 10 mg Q6H PRN IV. 11/11/16 17:45 12/11/16 17:44 11/14/16 00:11 10 MG Insulin Aspart (novoLOG ASPART) SLIDING SCALE G... ACHS SC 11/12/16 07:00 12/12/16 06:59 11/14/16 08:07 7 UNITS Metformin HCl (Glucophage Tab) 500 mg BIDM PO 11/12/16 16:45 12/12/16 16:44 11/14/16 08:03 500 MG Potassium/ Phosphorus/Sodium (Phospha 250 Neutral 155-852-130 Mg) 2 tab QID PO 11/12/16 19:00 12/12/16 18:59 11/14/16 08:04 2 TAB Quetiapine Fumarate (seroQUEL TAB) 12.5 mg HS PRN PO 11/12/16 20:30 12/12/16 20:29 Insulin Glargine (Lantus Solostar Pen) 35 units BID SQ 11/13/16 09:00 12/12/16 10:59 11/14/16 08:08 35 UNITS Gadobutrol (Gadavist) 11 mmol UD PRN IV 11/13/16 20:30 11/17/16 20:29 Acyclovir Sodium 750 mg/Dextrose 265 ml @ 265 mls/hr Q8 IV 11/13/16 23:00 11/15/16 22:59 11/14/16 05:51 265 MLS/HR Ceftriaxone Sodium 2000 mg/ Dextrose 70 ml @ 100 mls/hr Q12H IV 11/14/16 00:00 11/16/16 00:00 11/14/16 00:31 100 MLS/HR Description This is a 21 electrode EEG with a single channel dedicated to limited EKG. The electrodes were placed in accordance with the International 10-20 system. At the start of this recording the patient was in reported altered mental status. Background was composed of asymmetric moderate amplitude mixed theta and alpha/beta frequencies. There was continuous theta slowing over the left hemisphere, maximal over the left temporal area, and occasionally maximal over the left posterior quadrant. There was often a well-formed moderate amplitude 6- 7 Hz posterior dominant rhythm that was better formed over the right hemisphere. There was no state changes or sleep transients. Hyperventilation was not done. Photic stimulation at various frequencies did not produce any abnormalities. Interpretation This is an abnormal routine EEG secondary to: 1) continuous theta slowing over the left hemisphere, maximal over the left temporal region and occasionally the left posterior quadrant. 2) mild background slowing There was no electrographic seizures or epileptiform discharges. Clinical Correlation This EEG indicates: 1) structural or functional cerebral dysfunction over the left hemisphere 2) mild encephalopathy of nonspecific etiology.
--- NOTE | 2016-11-14 10:59 | DIAGNOSTIC IMAGING REPORT ---
FLUOROSCOPICALLY GUIDED LUMBAR PUNCTURE CLINICAL HISTORY: 66-year-old male presenting with Abnormal MRI, fever, confusion. COMPARISON: Correlation made to MR brain performed the previous day. PROCEDURE: The procedure, risks and benefits were discussed with the patient including the risk of spinal headache, bleeding and infection. The patient agreed to the procedure and informed written consent was obtained. The procedure was performed by Dr. Montesinos following a timeout. The L4-5 interspinous space was targeted. Skin overlying the space was prepped and draped in the usual sterile fashion and local anesthesia was achieved with 1% lidocaine. Under intermittent fluoroscopic guidance, a 20-gauge x 3 1/2 in. Sprotte needle was inserted into the thecal sac. A total of 8 cc of clear, colorless cerebral spinal fluid was obtained and spread amongst 4 vials. The patient tolerated the procedure well. There were no immediate complications. The specimens were sent to the laboratory at the request of the referring physician. FLUOROSCOPY TIME: 0.3 minutes. FLUOROSCOPIC IMAGES: 1. IMPRESSION: Successful fluoroscopic guided lumbar puncture with removal of 8 cc of clear, colorless cerebral spinal fluid. No immediate complications. Electronically signed by: Shaji Montesinos 11/14/2016 10:57 AM Dictated Date/Time: 11/14/2016 10:54 AM
[2016-11-14] MEDS ORDERED: ACETAMINOPHEN 500 MG TAB PO PRN (11:00)
--- NOTE | 2016-11-14 11:01 | Medical Student: [facility] ---
Med Student History & Physical Date & Time of Service: Nov 14, 2016 at 10:09 Chief Complaint: Dka(Diabetic Ketoacidoses) Primary Care Physician: Livier Gamble History of Present Illness Source: patient Mr. Mi is a 66yo male who presented to the ED on 11/11/16 with confusion and weakness. He was subsequently determined to have an elevated blood glucose > 600 and was treated for a hyperosmolar hyperglycemic state. However, Mr. Mi ' impaired mental status has persisted throughout his hospital stay, which prompted a brain MRI. The MRI showed a potential left medial occipital lobe subacute infarct as well as left medial temporal lobe/hippocampal region signal changes concerning for neoplasm, encephalitis, or postinfarct enhancement. It is difficult to obtain a history from the patient due to his altered mental status. The patient denies any symptoms. The patient reports that he has some chronic medical conditions for which he takes medications, but he is unable to elaborate. The patient becomes frustrated while trying to think about how to answer questions. History is negative for prior CVAs or neurologic conditions. Past Medical/Surgical History Past medical history: 1.) CAD w/PCI 2.) HTN 3.) DMII 4.) diastolic CHF 5.) hyperlipidemia 6.) hypothyroidism Family History Family history: heart disease stroke Social History Smoking Status: Never Smoker Smokeless Tobacco Use: No Alcohol Use: none Drug Use: none Marital Status: Housing status: assisted living ([facility]) Occupational Status: retired Immunizations History of Influenza Vaccine: No History of Tetanus Vaccine?: Yes History of Pneumococcal: No History of Hepatitis B Vaccine: No Allergies Coded Allergies: BEE STING (Verified Allergy, Severe, breathing problems, 01/30/13) Medications Aspirin (Aspirin Ec), 81 MG PO DAILY Atorvastatin (Lipitor), 40 MG PO DAILY Cholecalciferol (Vitamin D3), 2 CAP PO DAILY Epinephrine (Epipen), 0.3 MG IM UD Fish Oil (Colwich-3), 1 CAP PO DAILY Furosemide (Lasix), 80 MG PO DAILY Levothyroxine Sodium (Synthroid), 25 MCG PO DAILY Losartan Potassium (Cozaar), 25 MG PO DAILY Multivitamins/Minerals (Mvi With Minerals), 1 TAB PO DAILY Spironolactone (Aldactone), 50 MG PO DAILY Physical Exam Vital Signs (24 Hours) Date Time Temp Pulse Resp B/P (MAP) Pulse Ox O2 Delivery O2 Flow Rate FiO2 11/14/16 08:00 Room Air 11/14/16 07:45 36.9 83 18 147/79 (101) 97 11/14/16 06:04 156/101 (119) 11/14/16 04:26 37.0 85 18 194/99 (130) 96 Room Air 11/14/16 04:00 Room Air 11/14/16 00:30 191/101 (131) 11/14/16 00:00 37.2 76 18 187/96 (126) 97 Room Air 11/13/16 23:59 Room Air 11/13/16 20:00 Room Air 11/13/16 19:33 36.9 92 18 176/99 (124) 97 Room Air 11/13/16 16:00 36.8 82 20 174/89 (117) 98 Room Air 11/13/16 16:00 Room Air 11/13/16 12:00 Room Air 11/13/16 11:32 36.8 93 18 148/62 (90) 98 General Appearance: WD/WN, no apparent distress Head: normocephalic, atraumatic Neck: no carotid bruits Cardiovascular: regular rate, rhythm, no edema Neurological exam: Patient is right handed. Mental status: Patient is alert and oriented to person, date/month, but not place. His speech is fluent, but confusing at times . He is able to repeat sentences of at least 5 words. Exhibited difficulty with naming objects. Attention is suspected to be impaired; patient was unable to spell "world" backwards (yet possibly due to impaired comprehension). Cranial nerves: II: PERRL; visual field deficits present in left eye (right upper and lower quadrants) and right eye (right upper quadrant); gross visual acuity intact with corrective lenses. III, IV, : EOMI; no eye deviation at primary gaze. V: light touch intact in V1, 2, & 3 distributions. VII: facial muscles intact and symmetric with wrinkling forehead, tight eye closure, puffing cheeks out, and smiling. VIII: hearing grossly intact to finger rub. IX, X: palate elevates symmetrically. XI: head turning and shoulder shrug intact. XII: tongue is midline with normal movement; no atrophy or fasciculations. Motor: Normal tone (no rigidity or spasticity); no atrophy or fasciculations. Strength assessed as 5/5 for upper extremities b/l (shoulder abduction, elbow flexion/extension, wrist flexion/extension, abduction of fingers) and lower extremities b/l (hip flexion, knee flexion/extension, dorsiflexion/plantar flexion) Deep tendon reflexes: 2+ biceps and triceps b/l; 1+ brachioradialis, patellar, Achilles b/l. Sensory: light touch, vibration, and temperature intact b/l in upper extremities; light touch intact b/l in lower extremities; vibration and temperature decreased distally b/l in lower extremities. Coordination: normal finger to nose without dysmetria; normal heel to chase without dysmetria. Diagnostics Laboratory Results Results Past 24 Hours Test 11/13/16 11:25 11/13/16 15:07 11/13/16 15:33 11/13/16 20:39 Range/Units Bedside Glucose 227 214 215 70-99 mg/dl Total Creatine Kinase 65 39-308 U/L Creatine Kinase MB 1.8 0.5-3.6 ng/ml Creatine Kinase MB Ratio 2.8 0-3.0 Troponin I < 0.015 0-0.045 ng/ml Test 11/14/16 05:47 11/14/16 06:52 11/14/16 07:41 11/14/16 09:04 Range/Units White Blood Count 10.16 4.8-10.8 K/uL Red Blood Count 4.60 4.7-6.1 M/uL Hemoglobin 13.1 14.0-18.0 g/dL Hematocrit 38.9 42-52 % Mean Corpuscular Volume 84.6 80-100 fL Mean Corpuscular Hemoglobin 28.5 25-34 pg Mean Corpuscular Hemoglobin Concent 33.7 32-36 g/dl Platelet Count 214 130-400 K/uL Mean Platelet Volume 9.3 7.4-10.4 fL Neutrophils (%) (Auto) 73.0 % Lymphocytes (%) (Auto) 16.9 % Monocytes (%) (Auto) 8.5 % Eosinophils (%) (Auto) 0.8 % Basophils (%) (Auto) 0.2 % Neutrophils # (Auto) 7.42 1.4-6.5 K/uL Lymphocytes # (Auto) 1.72 1.2-3.4 K/uL Monocytes # (Auto) 0.86 0.11-0.59 K/uL Eosinophils # (Auto) 0.08 0-0.5 K/uL Basophils # (Auto) 0.02 0-0.2 K/uL RDW Standard Deviation 44.9 36.4-46.3 fL RDW Coefficient of Variation 14.5 11.5-14.5 % Immature Granulocyte % (Auto) 0.6 % Immature Granulocyte # (Auto) 0.06 0.00-0.02 K/uL Sodium Level 137 136-145 mmol/L Potassium Level 3.6 3.5-5.1 mmol/L Chloride Level 102 98-107 mmol/L Carbon Dioxide Level 29 21-32 mmol/L Anion Gap 6.0 3-11 mmol/L Blood Urea Nitrogen 15 7-18 mg/dl Creatinine 1.10 0.60-1.40 mg/dl Est Creatinine Clear Calc Drug Dose 78.1 ml/min Estimated GFR () 80.6 Estimated GFR (Non- 69.6 BUN/Creatinine Ratio 13.3 10-20 Random Glucose 124 70-99 mg/dl Calcium Level 8.3 8.5-10.1 mg/dl Bedside Glucose 165 70-99 mg/dl Microbiology Results 11/14/16 Acid Fast Stain, Josselyn Batch Pending 11/14/16 Mycobacterial Culture, Josselyn Batch Pending 11/14/16 Cryptococcal Antigen, Ordered Pending 11/14/16 Fungal Culture, Josselyn Batch Pending 11/14/16 Gram Stain, Josselyn Batch Pending 11/14/16 CSF Culture, Josselyn Batch Pending Diagnostic Radiology MRI OF THE BRAIN WITHOUT AND WITH IV CONTRAST CLINICAL HISTORY: Biliary, hallucinations, hyperglycemia. COMPARISON STUDY: No previous studies for comparison. TECHNIQUE: MRI of the brain was performed from the vertex to the skull base utilizing various T1 and T2 weighted sequences. Following the IV administration of 11 mL of Gadavist contrast, additional enhanced images were obtained. FINDINGS: Sagittal T1, axial diffusion, proton density and T2 weighted axial, coronal FLAIR, and pre and post axial T1-weighted images were acquired. These were supplemented with post gadolinium coronal T1 weighted images. There is a subtle focus of restricted water diffusion involving the left medial occipital lobe. This likely corresponds to a subacute infarct. A short-term follow-up MRI study is recommended. There is a focus of increased FLAIR signal within the left medial temporal lobe/hippocampal region. Postcontrast images reveal a 14 mm area of corresponding enhancement. There is no significant mass effect. Diagnostic considerations include neoplasm, limbic encephalitis, infection, and less likely post infarct enhancement. There is no evidence of ventricular dilatation. There are foci of increased T2 signal within the left mastoid, likely inflammatory. There are few scattered foci of increased T2 signal within the white matter, likely on a small vessel basis. There are no abnormal flow voids. IMPRESSION: 1. Left medial occipital lobe edema and restricted water diffusion, likely representing a subacute infarct. A short-term follow-up MRI study is recommended (6 weeks). 2. Focus of increased FLAIR signal and post gadolinium enhancement involving the left medial temporal lobe/hippocampal region. This measures approximately 14 mm. Diagnostic considerations include neoplasm, limbic encephalitis, infection, and less likely postinfarct enhancement. 3. Inflammatory changes within the left mastoid Electronically signed by: Lauro Galloway M.D. 11/13/2016 8:47 PM Dictated Date/Time: 11/13/2016 8:31 PM Impression Assessment and Plan Mr. Mi is a 66yo male with a persistent altered mental status. Altered mental status --Brain MRI: potential left medial occipital lobe subacute infarct; left medial temporal lobe/hippocampal region signal changes concerning for neoplasm, encephalitis, or postinfarct enhancement. --EEG: EEG report indicates structural or functional cerebral dysfunction over the left hemisphere; mild encephalopathy of nonspecific etiology. --CSF: negative for infectious etiology --will explore infarction as potential etiology of AMS with additional imaging- MRA of head and neck. Advanced Directives Existing Living Will: No Existing Power of Car Sales Consultant: No
[2016-11-14 11:26] LABS: CSF APPEARANCE CLEAR; CSF COLOR COLORLESS; CSF XANTHOCHROMIC NO XANTHOCHROMIA
[2016-11-14 11:33] LABS: CSF TOTAL PROTEIN 65.9 mg/dl (15.0-45.0)
[2016-11-14] MEDS ORDERED: LEVETIRACETAM IV 1,000 MG in DEXTROSE 5% 100ML 100 ML IV ONE (13:00)
--- NOTE | 2016-11-14 14:16 | Family Medicine Progress Note ---
Progress Note Date of Service Nov 14, 2016. Subjective Pt evaluation today including: conversation w/ patient, conversation w/ family , physical exam, chart review, lab review, review of studies, conversation w/ customer sales consultant, review of inpatient medication list Pain: No pain reported by patient PO Intake: Tolerating PO intake well Voiding: voiding difficulty Patient continues to report hallucinations, having to finish certain tasks which he is unable to elaborate on, and still gets emotional when he is unable to explain what he is trying to say Despite this, patient is content, resting comfortably, and reporting no pain Neurologic: + memory loss, + problem reported (hallucinations) Psychiatric: + anxiety All Other Systems: Reviewed and Negative Medications Current Inpatient Medications Medications (Trade) Dose Ordered Sig/Cuauhtemoc Route Start Time Stop Time Status Last Admin Dose Admin Glucose (Glucose 40% Gel) UD PRN PO 11/11/16 15:45 12/11/16 15:44 Glucose (Glucose Chew Tab) 1 tabs UD PRN PO 11/11/16 15:45 12/11/16 15:44 Dextrose (Dextrose 50% 50ML Syringe) 50 ml UD PRN IV 11/11/16 15:45 12/11/16 15:44 Glucagon (Glucagon Inj) 1 mg UD PRN SQ 11/11/16 15:45 12/11/16 15:44 Heparin Sodium (Porcine) (Heparin Sq 5000 Unit/0.5ml) 5,000 unit Q8 SQ 11/11/16 22:00 12/11/16 21:59 Future Hold 11/13/16 21:35 5,000 UNIT Acetaminophen (Tylenol Tab) 650 mg Q4H PRN PO 11/11/16 17:30 12/11/16 17:29 Al Hydrox/Mg Hydrox/Simethicone (Maalox Max Susp) 15 ml Q4H PRN PO 11/11/16 17:30 12/11/16 17:29 Magnesium Hydroxide (Milk Of Magnesia Susp) 30 ml Q12H PRN PO 11/11/16 17:30 12/11/16 17:29 Ondansetron HCl (Zofran Inj) 4 mg Q6H PRN IV 11/11/16 17:30 12/11/16 17:29 Polyethylene (Miralax Powder Packet) 17 gm DAILY PRN PO 11/11/16 17:30 12/11/16 17:29 Glucose (Glucose 40% Gel) 15-30 GRAMS 15 GRAMS... UD PRN PO 11/11/16 17:30 12/11/16 17:29 Glucose (Glucose Chew Tab) 4-8 Tablets 4 Tabl... UD PRN PO 11/11/16 17:30 12/11/16 17:29 Dextrose (Dextrose 50% 50ML Syringe) 25-50ML OF 50% DW IV FOR... UD PRN IV 11/11/16 17:30 12/11/16 17:29 Glucagon (Glucagon Inj) 1 mg UD PRN SQ 11/11/16 17:30 12/11/16 17:29 Aspirin (Ecotrin Tab) 81 mg DAILY PO 11/12/16 09:00 12/12/16 08:59 11/14/16 08:03 81 MG Atorvastatin Calcium (Lipitor Tab) 40 mg DAILY PO 11/12/16 09:00 12/12/16 08:59 11/14/16 08:03 40 MG Levothyroxine Sodium (Synthroid Tab) 25 mcg DAILYBB PO 11/12/16 06:00 12/12/16 05:59 11/14/16 05:51 25 MCG Multivitamins/ Minerals (Multivitamin W/ Minerals Tab) 1 tab DAILY PO 11/12/16 09:00 12/12/16 08:59 11/14/16 08:03 1 TAB Spironolactone (Aldactone Tab) 50 mg DAILY PO 11/12/16 09:00 12/12/16 08:59 11/14/16 08:04 50 MG Hydralazine HCl (HydrALAZINE INJ) 10 mg Q6H PRN IV. 11/11/16 17:45 12/11/16 17:44 11/14/16 11:45 10 MG Insulin Aspart (novoLOG ASPART) SLIDING SCALE G... ACHS SC 11/12/16 07:00 12/12/16 06:59 11/14/16 11:50 7 UNITS Metformin HCl (Glucophage Tab) 500 mg BIDM PO 11/12/16 16:45 12/12/16 16:44 11/14/16 08:03 500 MG Potassium/ Phosphorus/Sodium (Phospha 250 Neutral 155-852-130 Mg) 2 tab QID PO 11/12/16 19:00 12/12/16 18:59 11/14/16 08:04 2 TAB Quetiapine Fumarate (seroQUEL TAB) 12.5 mg HS PRN PO 11/12/16 20:30 12/12/16 20:29 Insulin Glargine (Lantus Solostar Pen) 35 units BID SQ 11/13/16 09:00 12/12/16 10:59 11/14/16 08:08 35 UNITS Gadobutrol (Gadavist) 11 mmol UD PRN IV 11/13/16 20:30 11/17/16 20:29 Metoprolol Succinate (Toprol Xl Tab) 25 mg QAM PO 11/15/16 09:00 12/15/16 08:59 Acetaminophen (Tylenol Tab) 1,000 mg Q4H PRN PO 11/14/16 11:00 11/16/16 10:59 Objective Vital Signs Date Time Temp Pulse Resp B/P (MAP) Pulse Ox O2 Delivery O2 Flow Rate FiO2 11/14/16 12:15 169/90 (116) 11/14/16 12:00 Room Air 11/14/16 11:44 36.8 88 18 180/98 (125) 96 11/14/16 08:00 Room Air 11/14/16 07:45 36.9 83 18 147/79 (101) 97 11/14/16 06:04 156/101 (119) 11/14/16 04:26 37.0 85 18 194/99 (130) 96 Room Air 11/14/16 04:00 Room Air 11/14/16 00:30 191/101 (131) 11/14/16 00:00 37.2 76 18 187/96 (126) 97 Room Air 11/13/16 23:59 Room Air 11/13/16 20:00 Room Air 11/13/16 19:33 36.9 92 18 176/99 (124) 97 Room Air 11/13/16 16:00 36.8 82 20 174/89 (117) 98 Room Air 11/13/16 16:00 Room Air Physical Exam General Appearance: WD/WN, no apparent distress Eyes: normal inspection, PERRL, EOMI, sclerae normal ENT: normal ENT inspection, hearing grossly normal, pharynx normal Neck: supple, trachea midline Respiratory/Chest: chest non-tender, lungs clear, normal breath sounds, no respiratory distress, no accessory muscle use Cardiovascular: regular rate, rhythm, no edema, no gallop, no JVD, no murmur Abdomen: normal bowel sounds, non tender, soft Extremities: non-tender, normal inspection, no pedal edema Neurologic/Psychiatric: no motor/sensory deficits, alert, normal mood/affect, oriented x 3, + pertinent finding (visual field abnormality, see dr. Carver's note) Skin: normal color, no rash Laboratory Results 11/14/16 05:47 Red Blood Count 4.60, Mean Corpuscular Volume 84.6, Mean Corpuscular Hemoglobin 28.5, Mean Corpuscular Hemoglobin Concent 33.7, Mean Platelet Volume 9.3, Neutrophils (%) (Auto) 73.0, Lymphocytes (%) (Auto) 16.9, Monocytes (%) (Auto) 8.5, Eosinophils (%) (Auto) 0.8, Basophils (%) (Auto) 0.2, Neutrophils # (Auto) 7.42, Lymphocytes # (Auto) 1.72, Monocytes # (Auto) 0.86, Eosinophils # (Auto) 0.08, Basophils # (Auto) 0.02 11/14/16 05:47 11/14/16 13:02 Test 11/13/16 15:33 11/14/16 05:47 11/14/16 10:42 11/14/16 11:05 Total Creatine Kinase 65 U/L (39-308) Creatine Kinase MB 1.8 ng/ml (0.5-3.6) Creatine Kinase MB Ratio 2.8 (0-3.0) Troponin I < 0.015 ng/ml (0-0.045) White Blood Count 10.16 K/uL (4.8-10.8) Red Blood Count 4.60 M/uL (4.7-6.1) Hemoglobin 13.1 g/dL (14.0-18.0) Hematocrit 38.9 % (42-52) Mean Corpuscular Volume 84.6 fL (80-100) Mean Corpuscular Hemoglobin 28.5 pg (25-34) Mean Corpuscular Hemoglobin Concent 33.7 g/dl (32-36) Platelet Count 214 K/uL (130-400) Mean Platelet Volume 9.3 fL (7.4-10.4) Neutrophils (%) (Auto) 73.0 % Lymphocytes (%) (Auto) 16.9 % Monocytes (%) (Auto) 8.5 % Eosinophils (%) (Auto) 0.8 % Basophils (%) (Auto) 0.2 % Neutrophils # (Auto) 7.42 K/uL (1.4-6.5) Lymphocytes # (Auto) 1.72 K/uL (1.2-3.4) Monocytes # (Auto) 0.86 K/uL (0.11-0.59) Eosinophils # (Auto) 0.08 K/uL (0-0.5) Basophils # (Auto) 0.02 K/uL (0-0.2) RDW Standard Deviation 44.9 fL (36.4-46.3) RDW Coefficient of Variation 14.5 % (11.5-14.5) Immature Granulocyte % (Auto) 0.6 % Immature Granulocyte # (Auto) 0.06 K/uL (0.00-0.02) Anion Gap 6.0 mmol/L (3-11) Est Creatinine Clear Calc Drug Dose 78.1 ml/min Estimated GFR () 80.6 Estimated GFR (Non- 69.6 BUN/Creatinine Ratio 13.3 (10-20) Calcium Level 8.3 mg/dl (8.5-10.1) CSF Color COLORLESS CSF Appearance CLEAR CSF WBC 0 /uL (0-5) CSF RBC 2 /uL (0) CSF Xanthrochromic NO XANTHOCHROMIA CSF Cell Count Tube # 3 CSF Chemistry Tube # 1 CSF Glucose 86 mg/dl (40-70) CSF Total Protein 65.9 mg/dl (15.0-45.0) Bedside Glucose 289 mg/dl (70-99) Assessment and Plan 66 yo male initially admitted for [facility] after recent Dx of Type 2 DM; Has in the last 36 hours become delirious and confused, with word finding difficult and lapses in memory Acute metabolic encephalopathy MRI performed yesterday showed L occipital subacute infarct and left medial temporal lobe increase in enhancement of 14mm Consulted neuro; thanks to Dr. Carver for seeing this gentleman; please see Neuro consult note LP performed today; results overall negative for any infectious process, ruling out encephalitis. 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 Episode lasted less than 2 minutes; IV keppra given stat 1000mg. Arrhythmia run of ventricular tachycardia overnight, self limited and asymptomatic run of atrial fibrillation today, self limited and asymptomatic; addition of metoprolol 25 mg BID should help Hypertension Required prn hydralazine and bolus of 50 mg labetolol overnight. Still running over 140/80, will add metoprolol 25 mg OD, will titrate to BID if necessary Code status: Full code VTE: Heparin SQ Dispo: remains on telemetry - Resident Physician Supervision Note: I was present with PGY1 Dr. Rhea Camp during the history and exam. I discussed the case with the resident and agree with the findings and plan as documented in the note. Any exceptions or clarifications are listed here: none. Overnight patient continues to have word finding difficulties with visual hallucinations. Tele stable - run of a. fib. No fever. VSS; BPs continue to be labile gen - NAD, no dysarthria or true aphasia - word-finding difficulties heart - RRR, s1, s2, 1/6 KENNY LSB lungs - CTA b/l abd - soft, NT, ND, BS+, no HSM ext - no edema labs - CBC, BMP acceptable LP results noted - zero WBCs, mild protein elevation A/P: 1. uncontrolled T2DM - improving with intensive insulin regimen; adjusting lantus/novolog; cont metformin. 2. hyperosmolar nonketotic coma - resolved. 3. encephalopathy - metabolic, 2nd to subacute strokes. Encephalitis unlikely given the negative LP today. d/c acyclovir and rocephin. Appreciate neurology consultation. Awaiting MRA head/neck. Will also need echo to r/o thrombus. 4. HTN - can have some element of permissiveness in light of subacute stroke. However, due to NSVT and PAF - add toprol xl. 5. hallucinations - likely due to #3 - seroquel prn. 6. NSV-T - continue beta gael. Troponins negative. Asymptomatic. Follow. 7. PAF - if no other source is found for strokes then anticoagulation is indicated. 8. subacute stroke - left occipital and left temporal region - ECONOMIC SPECIALIST territory. Await MRAs. Appreciate neuro consult. These strokes occurred ON aspirin. See #7. Check lipids in am. 9. concern of seizure - in light of MRI findings, EEG findings, and nursing report of 1-2 minutes of right-sided "twitching" and garbled speech concerning for seizure. Loaded with keppra 1gm IV x 1. Documented By: Ruben Smith MD Resident Tracking Resident Involvement: Resident Care Provided Care Provided: Adult [facility]
[2016-11-14] MEDS: METOPROLOL SUCC 25MG EXT REL TAB PO SCH (19:58)
--- NOTE | 2016-11-14 21:49 | DIAGNOSTIC IMAGING REPORT ---
MR ANGIOGRAM OF THE BRAIN CLINICAL HISTORY: Stroke. COMPARISON STUDY: MRI of the brain dated 11/13/2016. TECHNIQUE: 3-D [id number] MR angiography of the intracranial circulation is performed. 3-D tumble views are created and assessed. IV contrast was not administered for this examination. The examination is degraded by motion artifact. FINDINGS: There is a tiny right posterior communicating artery. The left A1 segment is diminutive. The internal carotid arteries are widely patent bilaterally, as are the anterior and middle cerebral arteries. The vertebrobasilar system and posterior cerebral arteries are widely patent. The left vertebral artery is dominant and the right vertebral artery is diminutive. There is no aneurysm, high-grade stenosis, or focal vessel cutoff seen throughout the intracranial circulation. IMPRESSION: Unremarkable MR angiogram of the brain. Electronically signed by: Adan Valdovinos M.D. 11/14/2016 9:47 PM Dictated Date/Time: 11/14/2016 9:44 PM
--- NOTE | 2016-11-14 22:03 | DIAGNOSTIC IMAGING REPORT ---
MR ANGIOGRAM OF THE NECK COMBO CLINICAL HISTORY: Stroke. COMPARISON STUDY: No priors. TECHNIQUE: Axial 3-D [id number] MR angiography of the neck is performed. Subsequently, following the IV administration of 11 cc of Gadavist. Coronal MR angiogram of the neck was performed to corroborate the findings. 3-D reformats are created and assessed. The examination is degraded by motion artifact. All measurements were calculated based on NASCET criteria. FINDINGS: Visualized portions of the thoracic aorta are normal in caliber. The aortic arch demonstrates standard 3-vessel anatomy. The subclavian arteries are widely patent bilaterally. The right common carotid artery is widely patent, as are the right internal and external carotid arteries. The left common carotid artery is widely patent. There is greater than 50% stenosis at the origin of the left internal carotid artery. The remainder of the left internal carotid artery is widely patent, as is the left external carotid artery. The vertebral arteries are widely patent. The left vertebral artery is dominant. The origin of the left vertebral artery is not well visualized. The visualized intracranial vessels at the skull base appear patent. Jugular veins are patent. IMPRESSION: 1. Motion degraded exam. 2. There is greater than 50% stenosis suggested at the origin of the left internal carotid artery. Consider ultrasound for further assessment as there is significant motion degradation. 3. The remainder of the left carotid artery system and the right carotid arterial system are widely patent. 4. The vertebral arteries are patent. Electronically signed by: Adan Valdovinos M.D. 11/14/2016 10:02 PM Dictated Date/Time: 11/14/2016 9:56 PM
[2016-11-15 03:45] VITALS: BP 174/96; PULSE 73; TEMP 36.5; O2SAT 96
[2016-11-15] MEDS: LEVOTHYROXINE 25 MCG TAB PO SCH (06:28)
[2016-11-15 06:44] LABS: BUN/CREATININE RATIO 10.9 (10-20); CALCIUM 8.5 mg/dl (8.5-10.1); CREATININE 1.1 mg/dl (0.60-1.40); POTASSIUM 3.7 mmol/L (3.5-5.1)
[2016-11-15 06:47] LABS: CHOLESTEROL/HDL RATIO 2.6; PHOSPHORUS 4.2 mg/dl (2.5-4.9)
[2016-11-15 08:20] VITALS: BP 157/71; PULSE 88; TEMP 37; O2SAT 95
[2016-11-15] MEDS: METFORMIN HCL 500 MG TAB PO SCH ×2 (08:25→16:41)
[2016-11-15] MEDS: CEROVITE ADV FORMULA TAB PO SCH (08:26)
[2016-11-15] MEDS: ATORVASTATIN 40 MG TAB PO SCH (08:26)
[2016-11-15] MEDS: ASPIRIN 81 MG ECTAB PO SCH (08:26)
[2016-11-15] MEDS: POT PHOSPHATE MONOBASIC W/ SOD TAB PO SCH ×2 (08:26→11:51)
[2016-11-15] MEDS: SPIRONOLACTONE 100 MG TAB PO SCH (08:26)
[2016-11-15] MEDS: INSULIN GLARGINE SOLOSTAR 100 UNITS/ML 3 ML PEN SQ SCH ×2 (08:29→20:59)
[2016-11-15] MEDS: INSULIN ASPART 100 UNITS/ML 3 ML PEN SC SCH ×4 (08:31→21:00)
[2016-11-15] MEDS ORDERED: METOPROLOL SUCC 25MG EXT REL TAB PO SCH (09:00)
--- NOTE | 2016-11-15 09:44 | DIAGNOSTIC IMAGING REPORT ---
ULTRASOUND OF THE CAROTID ARTERIES CLINICAL HISTORY: Left ICA stenosis. Motion degraded neck magnetic resonance angiography. COMPARISON STUDY: Magnetic resonance angiography neck dated 11/14/2016 TECHNIQUE: Real-time, grayscale, and color Doppler sonography of the carotid arteries was performed. Imaging reviewed in the transverse and longitudinal planes. NASCET criteria was utilized for stenosis calcification. FINDINGS: The examination was difficult from a technical standpoint secondary to the patient's body habitus. There is minimal atherosclerotic plaque present . The peak systolic velocity within the right internal carotid artery is 158 cm/sec. The systolic velocity ratio of right internal to common carotid artery is 1.4. The peak systolic velocity within the left internal carotid artery is 130 cm/sec. The systolic velocity ratio left internal to common carotid artery is 0.9. Antegrade flow is seen in the vertebral arteries. The external carotid arteries are patent. Blood pressure in the right arm measured 151 mm/Hg. Blood pressure in the left arm measured 170 mm/Hg. IMPRESSION: 1. Technically limited study secondary to the patient's body habitus 2. Minimally elevated internal carotid artery peak systolic velocities, without evidence of significant elevation of the internal to common carotid velocity ratios. Findings indicate less than 50% stenoses bilaterally. Electronically signed by: Lauro Galloway M.D. 11/15/2016 9:43 AM Dictated Date/Time: 11/15/2016 9:36 AM
--- NOTE | 2016-11-15 10:20 | Neurology Progress Notes ---
Neurology Progress Note Date of Service Nov 15, 2016. Subjective Follow-up for stroke The patient does not have any specific complaints at this time. A review of the nursing record indicates that this patient had an episode of unresponsiveness yesterday with associated right sided twitching and grunting noises. He does not recall this event. The episode lasted for 60-90 seconds and was felt to be potentially consistent with a seizure. He was given a 1 g loading dose of Keppra. He was later noted to have an episode of atrial fibrillation with rapid ventricular response lasting about 2 minutes. He had another similar episode of atrial fibrillation occur overnight. The patient continues to appear a bit confused. He has a poor fund of knowledge regarding the events of his recent hospitalization and is unable to provide any type of reliable history at this time. Yesterday's electroencephalogram revealed continuous theta slowing affecting the left temporal region maximally. Epileptiform abnormalities were not felt to be present. Yesterday's lumbar puncture results were reviewed as well. Cell counts unremarkable. Mild to moderate elevation in protein, nonspecific. Gram stain and cultures unremarkable. Given the unremarkable CSF analysis, this patient's acyclovir was discontinued yesterday. MR angiography of the head and neck recently completed. No significant vascular lesions identified. Objective Date Time Temp Pulse Resp B/P (MAP) Pulse Ox O2 Delivery O2 Flow Rate FiO2 11/15/16 08:20 37.0 88 18 157/71 (99) 95 11/15/16 08:00 Room Air 11/15/16 04:00 Room Air 11/15/16 03:45 36.5 73 18 174/96 (122) 96 Room Air 11/15/16 00:04 Room Air 11/14/16 23:20 36.8 76 18 164/94 (117) 97 Room Air 11/14/16 20:00 Room Air 11/14/16 19:40 37.0 91 18 125/76 (92) 97 Room Air 11/14/16 16:00 Room Air 11/14/16 15:47 36.8 86 18 160/102 (121) 95 11/14/16 12:15 169/90 (116) 11/14/16 12:00 Room Air 11/14/16 11:44 36.8 88 18 180/98 (125) 96 Last 24 Hours Test 11/14/16 10:42 11/14/16 11:05 11/14/16 13:02 11/14/16 16:13 CSF Color COLORLESS CSF Appearance CLEAR CSF WBC 0 /uL CSF RBC 2 /uL CSF Xanthrochromic NO XANTHOCHROMIA CSF Cell Count Tube # 3 CSF Chemistry Tube # 1 CSF Glucose 86 mg/dl CSF Total Protein 65.9 mg/dl Bedside Glucose 289 mg/dl 85 mg/dl Random Glucose 128 mg/dl Test 11/14/16 20:32 11/15/16 06:01 Bedside Glucose 175 mg/dl Sodium Level 141 mmol/L Potassium Level 3.7 mmol/L Chloride Level 105 mmol/L Carbon Dioxide Level 28 mmol/L Anion Gap 8.0 mmol/L Blood Urea Nitrogen 12 mg/dl Creatinine 1.10 mg/dl Est Creatinine Clear Calc Drug Dose 78.2 ml/min Estimated GFR () 80.6 Estimated GFR (Non- 69.6 BUN/Creatinine Ratio 10.9 Random Glucose 100 mg/dl Calcium Level 8.5 mg/dl Phosphorus Level 4.2 mg/dl Triglycerides Level 137 mg/dl Cholesterol Level 102 mg/dl HDL Cholesterol 39 mg/dl LDL Cholesterol, Calculated 36 mg/dl VLDL Cholesterol, Calculated 27 mg/dl Cholesterol/HDL Ratio 2.6 Exam: The patient was examined while he was sitting up in a bedside chair. He is alert and oriented to person only. He was not oriented to [facility], month, or day of the week. Attention span seemed to be normal although concentration notably impaired. He continues to exhibit mild difficulty with object naming. He was able to read simple text and repeat phrases. He appears to comprehend simple verbal commands and exhibits intact praxis. Visual concepcion are full to confrontation today. No visual field impairment appreciated. Pupils equal round reactive to light. Eye movements intact. There is normal facial symmetry and strength. Palate elevates to midline. Tongue protrudes to midline. There is no pronator drift with outstretched arms. There is no dysmetria with finger to nose or heel to chase bilaterally. Muscle tone normal. No abnormal movements appreciated. Current Inpatient Medications Medications (Trade) Dose Ordered Sig/Cuauhtemoc Route Start Time Stop Time Status Last Admin Dose Admin Glucose (Glucose 40% Gel) UD PRN PO 11/11/16 15:45 12/11/16 15:44 Glucose (Glucose Chew Tab) 1 tabs UD PRN PO 11/11/16 15:45 12/11/16 15:44 Dextrose (Dextrose 50% 50ML Syringe) 50 ml UD PRN IV 11/11/16 15:45 12/11/16 15:44 Glucagon (Glucagon Inj) 1 mg UD PRN SQ 11/11/16 15:45 12/11/16 15:44 Heparin Sodium (Porcine) (Heparin Sq 5000 Unit/0.5ml) 5,000 unit Q8 SQ 11/11/16 22:00 12/11/16 21:59 Future Hold 11/13/16 21:35 5,000 UNIT Acetaminophen (Tylenol Tab) 650 mg Q4H PRN PO 11/11/16 17:30 12/11/16 17:29 Al Hydrox/Mg Hydrox/Simethicone (Maalox Max Susp) 15 ml Q4H PRN PO 11/11/16 17:30 12/11/16 17:29 Magnesium Hydroxide (Milk Of Magnesia Susp) 30 ml Q12H PRN PO 11/11/16 17:30 12/11/16 17:29 Ondansetron HCl (Zofran Inj) 4 mg Q6H PRN IV 11/11/16 17:30 12/11/16 17:29 Polyethylene (Miralax Powder Packet) 17 gm DAILY PRN PO 11/11/16 17:30 12/11/16 17:29 Glucose (Glucose 40% Gel) 15-30 GRAMS 15 GRAMS... UD PRN PO 11/11/16 17:30 12/11/16 17:29 Glucose (Glucose Chew Tab) 4-8 Tablets 4 Tabl... UD PRN PO 11/11/16 17:30 12/11/16 17:29 Dextrose (Dextrose 50% 50ML Syringe) 25-50ML OF 50% DW IV FOR... UD PRN IV 11/11/16 17:30 12/11/16 17:29 Glucagon (Glucagon Inj) 1 mg UD PRN SQ 11/11/16 17:30 12/11/16 17:29 Aspirin (Ecotrin Tab) 81 mg DAILY PO 11/12/16 09:00 12/12/16 08:59 11/15/16 08:26 81 MG Atorvastatin Calcium (Lipitor Tab) 40 mg DAILY PO 11/12/16 09:00 12/12/16 08:59 11/15/16 08:26 40 MG Levothyroxine Sodium (Synthroid Tab) 25 mcg DAILYBB PO 11/12/16 06:00 12/12/16 05:59 11/15/16 06:28 25 MCG Multivitamins/ Minerals (Multivitamin W/ Minerals Tab) 1 tab DAILY PO 11/12/16 09:00 12/12/16 08:59 11/15/16 08:26 1 TAB Spironolactone (Aldactone Tab) 50 mg DAILY PO 11/12/16 09:00 12/12/16 08:59 11/15/16 08:26 50 MG Hydralazine HCl (HydrALAZINE INJ) 10 mg Q6H PRN IV. 11/11/16 17:45 12/11/16 17:44 11/14/16 11:45 10 MG Insulin Aspart (novoLOG ASPART) SLIDING SCALE G... ACHS SC 11/12/16 07:00 12/12/16 06:59 11/15/16 08:31 4 UNITS Metformin HCl (Glucophage Tab) 500 mg BIDM PO 11/12/16 16:45 12/12/16 16:44 11/15/16 08:25 500 MG Potassium/ Phosphorus/Sodium (Phospha 250 Neutral 155-852-130 Mg) 2 tab QID PO 11/12/16 19:00 12/12/16 18:59 11/15/16 08:26 2 TAB Quetiapine Fumarate (seroQUEL TAB) 12.5 mg HS PRN PO 11/12/16 20:30 12/12/16 20:29 Insulin Glargine (Lantus Solostar Pen) 35 units BID SQ 11/13/16 09:00 12/12/16 10:59 11/15/16 08:29 35 UNITS Gadobutrol (Gadavist) 11 mmol UD PRN IV 11/13/16 20:30 11/17/16 20:29 Acetaminophen (Tylenol Tab) 1,000 mg Q4H PRN PO 11/14/16 11:00 11/16/16 10:59 Metoprolol Succinate (Toprol Xl Tab) 25 mg QPM PO 11/14/16 21:00 12/15/16 08:59 11/14/16 19:58 25 MG Impression 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 Probably cardioembolic in light of recently observed atrial fibrillation. The recently completed lumbar puncture is not suggestive of encephalitis. The recently completed electroencephalogram does reveal left temporal slowing consistent with this patient's recent infarct. No epileptiform abnormalities observed, however. The recently completed MR angiography of the head and neck do not reveal any significant vascular lesions. Plan Would continue with Keppra for seizure prevention for the time being. Would give 500 mg IV every 12 hours, change to tablets prior to discharge. This patient should probably be offered anticoagulation in light of the recently observed atrial fibrillation. Would recommend a follow-up CT of the head today to exclude interval hemorrhagic transformation of his subacute infarct.
[2016-11-15] MEDS ORDERED: LEVETIRACETAM IV 500 MG in DEXTROSE 5% 100ML 100 ML IV ONE (10:30)
--- NOTE | 2016-11-15 11:21 | DIAGNOSTIC IMAGING REPORT ---
CT HEAD WITHOUT CONTRAST (CT) CLINICAL HISTORY: stroke, evaluate for hemorrhage COMPARISON STUDY: MRI the brain dated 11/13/2016 TECHNIQUE: Axial CT of the brain is performed from the vertex to the skull base. IV contrast was not administered for this examination. CT DOSE: 558.98 mGy.cm FINDINGS: No intra or extra-axial mass lesions are visualized. There is no CT evidence of acute cortical infarction. There is no evidence of midline shift. There is no acute hemorrhage. No calvarial fractures are visualized. There is asymmetry in the occipital horns. This may be secondary to mild left occipital lobe edema. There is no evidence of acute sinusitis IMPRESSION: Asymmetry of the occipital horns. This may indicate left occipital lobe edema. No evidence of acute hemorrhage. Electronically signed by: Lauro Galloway M.D. 11/15/2016 11:20 AM Dictated Date/Time: 11/15/2016 11:17 AM
[2016-11-15] MEDS: LEVETIRACETAM IV 500 MG in DEXTROSE 5% 100ML 100 ML IV SCH ×2 (11:26→20:55)
[2016-11-15 11:37] VITALS: BP 154/62; PULSE 72; TEMP 36.9; O2SAT 99
--- NOTE | 2016-11-15 13:05 | ECHOCARDIOGRAM REPORT ---
*NOTICE TO RECEIVING LIBERTARIAN AGENCY This information is strictly Confidential and protected under [place] law. [place] law prohibits you from making any further disclosure of this information unless further disclosure is expressly permitted by the written consent of the person to whom it pertains or is authorized by law. A general authorization for the release of medical or other information is not sufficient for this purpose. Hospital accepts no responsibility if the information is made available to any other person, INCLUDING THE PATIENT. Interpretation Summary * Name: KALEB ANDINO Study Date: 11/15/2016 10:11 AM BP: 157/71 mmHg * Patient Location: C.2E\S\E209\S\1 HR: 87 * : 1950 (M/d/yyyy) Gender: Male Height: 66 in * Age: 66 yrs Ethnicity: CA Weight: 250 lb * Ordering Physician: Ruben Smith * Referring Physician: Self, Referred * Performed By: Darwin Boykin RCS * * Reason For Study: A-FIB * BSA: 2.2 m2 * -- Conclusions -- * The left ventricle is grossly normal size. * There is normal left ventricular wall thickness. * Ejection Fraction = 65-70%. * Left ventricular systolic function is normal. * The left ventricular wall motion is normal. * The right ventricle is normal in size and function. * The left atrium is mildly dilated. * Trileaflet aortic valve with mild aortic stenosis (MG 10 mm/hg) * Grade I diastolic dysfunction, (abnormal relaxation pattern). Procedure Details * A saline contrast injection was performed to assess for cardiac shunting. * The injection was performed through an intravenous line in the right arm. * A total of 10 cc of agitated saline was given. Left Ventricle * The left ventricle is grossly normal size. * There is normal left ventricular wall thickness. * Ejection Fraction = 65-70%. * Left ventricular systolic function is normal. * The left ventricular wall motion is normal. Right Ventricle * The right ventricle is normal in size and function. Atria * The left atrium is mildly dilated. * Right atrial size is normal. Mitral Valve * There is moderate mitral annular calcification. * There is no mitral regurgitation noted. Tricuspid Valve * The tricuspid valve anatomy is normal. Aortic Valve * Trileaflet aortic valve with mild aortic stenosis (MG 10 mm/hg) * No aortic regurgitation is present. Pulmonic Valve * The pulmonic valve is not well seen, but is grossly normal. * Mild pulmonic valvular regurgitation. Great Vessels * The aortic root is normal size. Pericardium/Pleural * There is no pericardial effusion. Left Ventricular Diastolic Function * Grade I diastolic dysfunction, (abnormal relaxation pattern). MMode 2D Measurements and Calculations IVSd 1.0 cm LVIDd 5.1 cm LVIDs 2.8 cm LVPWd 1.1 cm IVS/LVPW 0.98 FS 45.4 % EDV(Teich) 121.1 ml ESV(Teich) 28.5 ml EF(Teich) 76.5 % EDV(cubed) 128.9 ml ESV(cubed) 21.0 ml EF(cubed) 83.7 % LV mass(C)d 197.6 grams LV mass(C)dI 89.8 grams/m\S\2 SV(Teich) 92.6 ml SI(Teich) 42.1 ml/m\S\2 SV(cubed) 107.9 ml SI(cubed) 49.1 ml/m\S\2 Ao root diam 2.7 cm Ao root area 5.9 cm\S\2 LVOT diam 2.0 cm LVOT area 3.2 cm\S\2 LVAd ap4 24.5 cm\S\2 LVLd ap4 8.2 cm EDV(MOD-sp4) 57.8 ml EDV(sp4-el) 62.3 ml LVAs ap4 7.9 cm\S\2 LVLs ap4 6.4 cm ESV(MOD-sp4) 9.1 ml ESV(sp4-el) 8.2 ml EF(MOD-sp4) 84.3 % EF(sp4-el) 86.9 % LVAd ap2 22.2 cm\S\2 LVLd ap2 7.8 cm EDV(MOD-sp2) 51.6 ml EDV(sp2-el) 53.6 ml LVAs ap2 11.0 cm\S\2 LVLs ap2 5.7 cm ESV(MOD-sp2) 19.1 ml ESV(sp2-el) 18.2 ml EF(MOD-sp2) 63.1 % EF(sp2-el) 66.1 % LVLd %diff -4.66 % EDV(MOD-bp) 56.2 ml LVLs %diff -13.03 % ESV(MOD-bp) 13.2 ml EF(MOD-bp) 76.5 % SV(MOD-sp4) 48.8 ml SI(MOD-sp4) 22.2 ml/m\S\2 SV(MOD-sp2) 32.6 ml SI(MOD-sp2) 14.8 ml/m\S\2 SV(MOD-bp) 43.0 ml SI(MOD-bp) 19.5 ml/m\S\2 SV(sp4-el) 54.1 ml SI(sp4-el) 24.6 ml/m\S\2 SV(sp2-el) 35.4 ml SI(sp2-el) 16.1 ml/m\S\2 Doppler Measurements and Calculations Ao V2 max 233.9 cm/sec Ao max PG 21.9 mmHg Ao max PG (full) 15.2 mmHg Ao V2 mean 141.6 cm/sec Ao mean PG 10.1 mmHg Ao mean PG (full) 6.4 mmHg Ao V2 VTI 42.3 cm LUIS F(I,A) 2.0 cm\S\2 LUIS F(I,D) 2.0 cm\S\2 LUIS F(V,A) 1.8 cm\S\2 LUIS F(V,D) 1.8 cm\S\2 LV V1 max PG 6.7 mmHg LV V1 mean PG 3.7 mmHg LV V1 max 129.7 cm/sec LV V1 mean 88.0 cm/sec LV V1 VTI 26.7 cm SV(Ao) 249.7 ml SI(Ao) 113.5 ml/m\S\2 SV(LVOT) 86.6 ml SI(LVOT) 39.4 ml/m\S\2
--- NOTE | 2016-11-15 13:44 | Family Medicine Progress Note ---
Progress Note Date of Service Nov 15, 2016. Subjective Pt evaluation today including: conversation w/ patient, physical exam, chart review, lab review, review of inpatient medication list Pain: No pain reported PO Intake: Tolerating oral intake Voiding: no voiding problems Mr. Mi is a pleasant 66 year old gentleman who is currently feeling well. He is concerned about his loss of vision, and his recent diagnosis of stroke. He is also upset about his difficulty with selecting words and memory lapses. Constitutional: No fever, No chills, No sweats Eyes: + problem reported (loss of right visual field. Patient states he does not see well out of his right eye) Respiratory: No cough, No shortness of breath Cardiovascular: No chest pain Abdomen: No pain, No nausea, No vomiting, No constipation Neurologic: + memory loss All Other Systems: Reviewed and Negative Medications Current Inpatient Medications Medications (Trade) Dose Ordered Sig/Cuauhtemoc Route Start Time Stop Time Status Last Admin Dose Admin Glucose (Glucose 40% Gel) UD PRN PO 11/11/16 15:45 12/11/16 15:44 Glucose (Glucose Chew Tab) 1 tabs UD PRN PO 11/11/16 15:45 12/11/16 15:44 Dextrose (Dextrose 50% 50ML Syringe) 50 ml UD PRN IV 11/11/16 15:45 12/11/16 15:44 Glucagon (Glucagon Inj) 1 mg UD PRN SQ 11/11/16 15:45 12/11/16 15:44 Heparin Sodium (Porcine) (Heparin Sq 5000 Unit/0.5ml) 5,000 unit Q8 SQ 11/11/16 22:00 12/11/16 21:59 Future Hold 11/13/16 21:35 5,000 UNIT Acetaminophen (Tylenol Tab) 650 mg Q4H PRN PO 11/11/16 17:30 12/11/16 17:29 Al Hydrox/Mg Hydrox/Simethicone (Maalox Max Susp) 15 ml Q4H PRN PO 11/11/16 17:30 12/11/16 17:29 Magnesium Hydroxide (Milk Of Magnesia Susp) 30 ml Q12H PRN PO 11/11/16 17:30 12/11/16 17:29 Ondansetron HCl (Zofran Inj) 4 mg Q6H PRN IV 11/11/16 17:30 12/11/16 17:29 Polyethylene (Miralax Powder Packet) 17 gm DAILY PRN PO 11/11/16 17:30 12/11/16 17:29 Glucose (Glucose 40% Gel) 15-30 GRAMS 15 GRAMS... UD PRN PO 11/11/16 17:30 12/11/16 17:29 Glucose (Glucose Chew Tab) 4-8 Tablets 4 Tabl... UD PRN PO 11/11/16 17:30 12/11/16 17:29 Dextrose (Dextrose 50% 50ML Syringe) 25-50ML OF 50% DW IV FOR... UD PRN IV 11/11/16 17:30 12/11/16 17:29 Glucagon (Glucagon Inj) 1 mg UD PRN SQ 11/11/16 17:30 12/11/16 17:29 Aspirin (Ecotrin Tab) 81 mg DAILY PO 11/12/16 09:00 12/12/16 08:59 11/15/16 08:26 81 MG Atorvastatin Calcium (Lipitor Tab) 40 mg DAILY PO 11/12/16 09:00 12/12/16 08:59 11/15/16 08:26 40 MG Levothyroxine Sodium (Synthroid Tab) 25 mcg DAILYBB PO 11/12/16 06:00 12/12/16 05:59 11/15/16 06:28 25 MCG Multivitamins/ Minerals (Multivitamin W/ Minerals Tab) 1 tab DAILY PO 11/12/16 09:00 12/12/16 08:59 11/15/16 08:26 1 TAB Spironolactone (Aldactone Tab) 50 mg DAILY PO 11/12/16 09:00 12/12/16 08:59 11/15/16 08:26 50 MG Hydralazine HCl (HydrALAZINE INJ) 10 mg Q6H PRN IV. 11/11/16 17:45 12/11/16 17:44 11/14/16 11:45 10 MG Insulin Aspart (novoLOG ASPART) SLIDING SCALE G... ACHS SC 11/12/16 07:00 12/12/16 06:59 11/15/16 11:50 8 UNITS Metformin HCl (Glucophage Tab) 500 mg BIDM PO 11/12/16 16:45 12/12/16 16:44 11/15/16 08:25 500 MG Potassium/ Phosphorus/Sodium (Phospha 250 Neutral 155-852-130 Mg) 2 tab QID PO 11/12/16 19:00 12/12/16 18:59 11/15/16 11:51 2 TAB Quetiapine Fumarate (seroQUEL TAB) 12.5 mg HS PRN PO 11/12/16 20:30 12/12/16 20:29 Insulin Glargine (Lantus Solostar Pen) 35 units BID SQ 11/13/16 09:00 12/12/16 10:59 11/15/16 08:29 35 UNITS Gadobutrol (Gadavist) 11 mmol UD PRN IV 11/13/16 20:30 11/17/16 20:29 Acetaminophen (Tylenol Tab) 1,000 mg Q4H PRN PO 11/14/16 11:00 11/16/16 10:59 Metoprolol Succinate (Toprol Xl Tab) 25 mg QPM PO 11/14/16 21:00 12/15/16 08:59 11/14/16 19:58 25 MG Levetiracetam 500 mg/Dextrose 105 ml @ 420 mls/hr Q12@1000,2200 IV 11/15/16 10:45 12/15/16 10:44 11/15/16 11:26 420 MLS/HR Objective Vital Signs Date Time Temp Pulse Resp B/P (MAP) Pulse Ox O2 Delivery O2 Flow Rate FiO2 11/15/16 12:00 Room Air 11/15/16 11:37 36.9 72 18 154/62 (92) 99 11/15/16 08:20 37.0 88 18 157/71 (99) 95 11/15/16 08:00 Room Air 11/15/16 04:00 Room Air 11/15/16 03:45 36.5 73 18 174/96 (122) 96 Room Air 11/15/16 00:04 Room Air 11/14/16 23:20 36.8 76 18 164/94 (117) 97 Room Air 11/14/16 20:00 Room Air 11/14/16 19:40 37.0 91 18 125/76 (92) 97 Room Air 11/14/16 16:00 Room Air 11/14/16 15:47 36.8 86 18 160/102 (121) 95 Physical Exam General Appearance: WD/WN, no apparent distress Neck: supple, no adenopathy Respiratory/Chest: chest non-tender, lungs clear, normal breath sounds, no respiratory distress, no accessory muscle use Cardiovascular: regular rate, rhythm, no edema, no gallop, no JVD, no murmur Abdomen: normal bowel sounds, non tender, soft, no organomegaly, no pulsatile mass Neurologic/Psychiatric: alert, normal mood/affect, oriented x 3 (Oriented to person, but not place or time), + pertinent finding (Right sided quadrantanopia) Skin: normal color Laboratory Results 11/15/16 06:01 Test 11/15/16 06:01 11/15/16 10:59 Anion Gap 8.0 mmol/L (3-11) Est Creatinine Clear Calc Drug Dose 78.2 ml/min Estimated GFR () 80.6 Estimated GFR (Non- 69.6 BUN/Creatinine Ratio 10.9 (10-20) Calcium Level 8.5 mg/dl (8.5-10.1) Phosphorus Level 4.2 mg/dl (2.5-4.9) Triglycerides Level 137 mg/dl (0-150) Cholesterol Level 102 mg/dl (0-200) HDL Cholesterol 39 mg/dl LDL Cholesterol, Calculated 36 mg/dl VLDL Cholesterol, Calculated 27 mg/dl Cholesterol/HDL Ratio 2.6 Bedside Glucose 235 mg/dl (70-99) Assessment and Plan 66 yo male initially admitted for [facility] after recent Dx of Type 2 DM; He had subsequently become confused, with right quadrantanopia, and is experiencing difficulty with selecting words and with his memory. Left [employer] Stroke MRI performed showed L occipital subacute infarct and left medial temporal lobe increase in enhancement of 14mm MRA brain was unremarkable and MRA and Ultrasound of carotid arteries showed <50 % stenosis bilaterally. It is likely, given his paroxysmal atrial fibrillation, that his stroke was caused by his arrhythmia. Will consult OT, PT and SLT to help with residual stroke symptoms. Dr. Carver also recommended follow-up CT of the head today, which excluded hemorrhagic transformation of his infarct. He will also be placed on a higher dose of Lipitor (80 mg OD) in keeping with post-stroke guidelines. Upon d/c, he will be referred to a neuro furniture salesperson in [place], as he is experiencing right visual field deficits. New-Onset Seizure Mr. Mi experienced a 2 minute seizure yesterday, and was loaded with 1000mg of IV Keppra. He has been placed on 500mg of Keppra IV every 12 hours, as per Dr. Carver and will be changed to tablets prior to discharge. Arrhythmia 4:50AM, Mr. Mi experienced an hour long run of atrial fibrillation with RVR, and occasional runs of vtach. At this time, he was placed on 2L of O2 via nasal prongs and given a dose of Lopressor. He will continue to be monitored on telemetry. In light of his atrial fibrillation and recent stroke, anticoagulation should be started. This will be discussed with neurology. Hypertension Most recent blood pressure was 157/71. Allow for permissive hypertension in light of his recent stroke. Type 2 Diabetes Continue current diabetes regimen. Stop phosphorous tablets as levels today were normal. Code status: Full code VTE: Heparin SQ Dispo: remains on telemetry - Resident Physician Supervision Note: I was present with PGY1 Dr. Stephanie Rapp during the history and exam. I discussed the case with the resident and agree with the findings and plan as documented in the note. Any exceptions or clarifications are listed here: none. Overnight - tele with intermittent runs of paroxysmal a. fib. He continues with visual difficulties. Staff note confusion as well but no seizure activity overnight. No cp or sob. VSS; BPs mildly high gen - NAD, no dysarthria or true aphasia - word-finding difficulties remain and he is confused; a/o x 1 only heart - RRR, s1, s2, 1/6 KENNY LSB lungs - CTA b/l abd - soft, NT, ND, BS+, no HSM ext - no edema neuro - right-sided superior quadrantopia; no pronator drift; strength 5/5 x 4 exts labs - CSF culture negative FSBS acceptable A/P: 1. uncontrolled T2DM - improved with intensive insulin regimen; adjusting lantus/novolog; cont metformin. 2. hyperosmolar nonketotic coma - resolved. 3. encephalopathy - metabolic, 2nd to subacute strokes. Encephalitis unlikely given the negative LP. No other infectious sources found and he remains afebrile. Appreciate neurology consultation. 4. HTN - can have some element of permissiveness in light of subacute stroke. However, due to NSVT and PAF - added toprol xl. 5. hallucinations - likely due to #3 - seroquel prn. 6. NSV-T - continue beta gael. Troponins negative. Asymptomatic. ECHO with preserved EF and structurally normal heart. 7. PAF - in light of his stroke and high CHADS anticoagulation is indicated. CT head today w/o hemorrhage. Start eliquis BID. 8. subacute stroke - left occipital and left temporal region - [employer] territory. MRA head/neck with focal stenotic lesion. Carotids with <50% ICA stenosis. ECHO w/o thrombus. Suspect embolic stroke from a. fib. Appreciate neuro consult. Cont high intensity statin. Reasonable to continue aspirin due to ?CAD history. 9. concern of seizure - in light of MRI findings, EEG findings, and nursing report of 1-2 minutes of right-sided "twitching" and garbled speech concerning for seizure. Loaded with keppra 1gm IV x 1 two days ago and will remain on keppra. family updated by Dr. Rapp. Documented By: Ruben Smith MD Resident Tracking Resident Involvement: Resident Care Provided Care Provided: Adult Hospital Medicine
[2016-11-15 16:00] VITALS: BP_SYST 157; BP_SYST 188; BP_DIAS 100; BP_DIAS 95; PULSE 76; TEMP 37.3; O2SAT 97
[2016-11-15] MEDS ORDERED: APIXABAN 2.5 MG TAB PO ONE (16:30)
[2016-11-15 20:12] VITALS: BP 151/90; PULSE 84; TEMP 37.1; O2SAT 98
[2016-11-15] MEDS: METOPROLOL SUCC 25MG EXT REL TAB PO SCH (20:56)
[2016-11-16] VITALS: BP 134/79; PULSE 80; TEMP 37.3; O2SAT 99
[2016-11-16 04:00] VITALS: BP 135/76; PULSE 77; TEMP 36.8; O2SAT 95
[2016-11-16] MEDS: LEVOTHYROXINE 25 MCG TAB PO SCH (05:51)
[2016-11-16 07:27] VITALS: BP 158/90; PULSE 69; TEMP 36.7; O2SAT 96
[2016-11-16] MEDS: SPIRONOLACTONE 100 MG TAB PO SCH (08:29)
[2016-11-16] MEDS: APIXABAN 2.5 MG TAB PO SCH ×2 (08:29→20:40)
[2016-11-16] MEDS: ASPIRIN 81 MG ECTAB PO SCH (08:30)
[2016-11-16] MEDS: ATORVASTATIN 40 MG TAB PO SCH (08:30)
[2016-11-16] MEDS: METFORMIN HCL 500 MG TAB PO SCH ×2 (08:30→18:38)
[2016-11-16] MEDS: CEROVITE ADV FORMULA TAB PO SCH (08:30)
[2016-11-16] MEDS: INSULIN ASPART 100 UNITS/ML 3 ML PEN SC SCH ×4 (08:43→20:39)
[2016-11-16] MEDS: INSULIN GLARGINE SOLOSTAR 100 UNITS/ML 3 ML PEN SQ SCH ×2 (08:44→20:43)
--- NOTE | 2016-11-16 10:04 | Neurology Progress Notes ---
Neurology Progress Note Date of Service Nov 16, 2016. Subjective Follow-up for stroke and seizure-like episode The patient has not had any further episodes of seizure-like activity. He has been receiving Keppra 500 mg IV every 12 hours. The recently completed EEG revealed left temporal slowing but no definitive epileptiform abnormalities. The follow-up CT of the head completed yesterday is negative for hemorrhage. 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 Denies headache or weakness. He does not have any specific complaints. He continues to appear mildly confused. Objective Date Time Temp Pulse Resp B/P (MAP) Pulse Ox O2 Delivery O2 Flow Rate FiO2 11/16/16 08:00 Room Air 11/16/16 07:27 36.7 69 16 158/90 (112) 96 Room Air 11/16/16 04:00 36.8 77 22 135/76 (95) 95 Nasal Cannula 98.0 11/16/16 04:00 Nasal Cannula 2.0 11/16/16 00:07 Nasal Cannula 2.0 11/16/16 00:00 37.3 80 20 134/79 (97) 99 Nasal Cannula 2.0 11/15/16 20:25 Nasal Cannula 2.0 11/15/16 20:12 37.1 84 18 151/90 (110) 98 Nasal Cannula 2.0 11/15/16 16:00 Room Air 11/15/16 16:00 37.3 76 20 188/100 (129) 97 157/95 (115) 11/15/16 12:00 Room Air 11/15/16 11:37 36.9 72 18 154/62 (92) 99 Last 24 Hours Test 11/15/16 10:59 11/15/16 16:06 11/15/16 19:54 11/16/16 06:43 Bedside Glucose 235 mg/dl 93 mg/dl 140 mg/dl 94 mg/dl Imaging: CT of the head reviewed and as described above Exam: The patient is sitting up comfortably in bed. He has been reading the newspaper which is scattered on his bed sheets and the floor. He is alert and oriented to person and hospital but has difficulty indicating the name of the hospital, day of the week, and date. Concentration impaired. Unable to spell world backwards or recite the months of the year backwards. Processing speed is slow. Visual concepcion full to confrontation. Pupils equal round reactive to light. Eye movements normal. There is no facial asymmetry or droop. Tongue and palate move well and are midline. There is no pronator drift with outstretched arms. Finger to nose and heel to chase normal bilaterally. There are no dyskinesias, tremors, or other abnormal movements observed. Current Inpatient Medications Medications (Trade) Dose Ordered Sig/Cuauhtemoc Route Start Time Stop Time Status Last Admin Dose Admin Glucose (Glucose 40% Gel) UD PRN PO 11/11/16 15:45 12/11/16 15:44 Glucose (Glucose Chew Tab) 1 tabs UD PRN PO 11/11/16 15:45 12/11/16 15:44 Dextrose (Dextrose 50% 50ML Syringe) 50 ml UD PRN IV 11/11/16 15:45 12/11/16 15:44 Glucagon (Glucagon Inj) 1 mg UD PRN SQ 11/11/16 15:45 12/11/16 15:44 Heparin Sodium (Porcine) (Heparin Sq 5000 Unit/0.5ml) 5,000 unit Q8 SQ 11/11/16 22:00 12/11/16 21:59 Future Hold 11/13/16 21:35 5,000 UNIT Acetaminophen (Tylenol Tab) 650 mg Q4H PRN PO 11/11/16 17:30 12/11/16 17:29 Al Hydrox/Mg Hydrox/Simethicone (Maalox Max Susp) 15 ml Q4H PRN PO 11/11/16 17:30 12/11/16 17:29 Magnesium Hydroxide (Milk Of Magnesia Susp) 30 ml Q12H PRN PO 11/11/16 17:30 12/11/16 17:29 Ondansetron HCl (Zofran Inj) 4 mg Q6H PRN IV 11/11/16 17:30 12/11/16 17:29 Polyethylene (Miralax Powder Packet) 17 gm DAILY PRN PO 11/11/16 17:30 12/11/16 17:29 Glucose (Glucose 40% Gel) 15-30 GRAMS 15 GRAMS... UD PRN PO 11/11/16 17:30 12/11/16 17:29 Glucose (Glucose Chew Tab) 4-8 Tablets 4 Tabl... UD PRN PO 11/11/16 17:30 12/11/16 17:29 Dextrose (Dextrose 50% 50ML Syringe) 25-50ML OF 50% DW IV FOR... UD PRN IV 11/11/16 17:30 12/11/16 17:29 Glucagon (Glucagon Inj) 1 mg UD PRN SQ 11/11/16 17:30 12/11/16 17:29 Aspirin (Ecotrin Tab) 81 mg DAILY PO 11/12/16 09:00 12/12/16 08:59 11/16/16 08:30 81 MG Levothyroxine Sodium (Synthroid Tab) 25 mcg DAILYBB PO 11/12/16 06:00 12/12/16 05:59 11/16/16 05:51 25 MCG Multivitamins/ Minerals (Multivitamin W/ Minerals Tab) 1 tab DAILY PO 11/12/16 09:00 12/12/16 08:59 11/16/16 08:30 1 TAB Spironolactone (Aldactone Tab) 50 mg DAILY PO 11/12/16 09:00 12/12/16 08:59 11/16/16 08:29 50 MG Hydralazine HCl (HydrALAZINE INJ) 10 mg Q6H PRN IV. 11/11/16 17:45 12/11/16 17:44 11/14/16 11:45 10 MG Insulin Aspart (novoLOG ASPART) SLIDING SCALE G... ACHS SC 11/12/16 07:00 12/12/16 06:59 11/16/16 08:43 5 UNITS Metformin HCl (Glucophage Tab) 500 mg BIDM PO 11/12/16 16:45 12/12/16 16:44 11/16/16 08:30 500 MG Quetiapine Fumarate (seroQUEL TAB) 12.5 mg HS PRN PO 11/12/16 20:30 12/12/16 20:29 Insulin Glargine (Lantus Solostar Pen) 35 units BID SQ 11/13/16 09:00 12/12/16 10:59 11/16/16 08:44 35 UNITS Gadobutrol (Gadavist) 11 mmol UD PRN IV 11/13/16 20:30 11/17/16 20:29 Acetaminophen (Tylenol Tab) 1,000 mg Q4H PRN PO 11/14/16 11:00 11/16/16 10:59 Metoprolol Succinate (Toprol Xl Tab) 25 mg QPM PO 11/14/16 21:00 12/15/16 08:59 11/15/16 20:56 25 MG Levetiracetam 500 mg/Dextrose 105 ml @ 420 mls/hr Q12@1000,2200 IV 11/15/16 10:45 12/15/16 10:44 11/15/16 20:55 420 MLS/HR Atorvastatin Calcium (Lipitor Tab) 80 mg DAILY PO 11/16/16 09:00 12/12/16 08:59 11/16/16 08:30 80 MG Apixaban (Eliquis Tab) 5 mg BID PO 11/16/16 09:00 12/16/16 08:59 11/16/16 08:29 5 MG Impression Subacute medial left occipital lobe infarct, likely cardioembolic given atrial fibrillation. Limbic encephalitis probably unlikely given unremarkable CSF analysis. A medial left temporal lobe neoplasm is possible, as suggested on MRI, and cannot be excluded at this time. However, post infarct contrast enhancement is also possible. No further seizure-like episodes. Plan Continue Keppra 500 mg IV every 12 hours, change to tablets prior to discharge Agree with anticoagulation given atrial fibrillation and evidence of subacute infarct on MRI. Would obtain a repeat brain MRI with and without contrast in 4-6 weeks. No further immediate recommendations. Case has been discussed with Dr. Perez and the family protection specialist. Please contact me if I may be of further assistance.
[2016-11-16] MEDS: LEVETIRACETAM IV 500 MG in DEXTROSE 5% 100ML 100 ML IV SCH ×2 (10:27→20:43)
[2016-11-16 11:59] VITALS: BP 125/81; PULSE 73; TEMP 36.7; O2SAT 96
--- NOTE | 2016-11-16 14:59 | Family Medicine Progress Note ---
Progress Note Date of Service Nov 16, 2016. Subjective Pt evaluation today including: conversation w/ patient, physical exam, chart review, lab review, review of inpatient medication list Pain: No pain reported PO Intake: Tolerating PO intake Voiding: no voiding problems Mr. Mi is a 66 year old gentleman who has no new concerns today. He is eating and drinking well, and reports an improvement in his vision. No headaches or weakness reported. Constitutional: No fever, No chills, No sweats, No weight loss Eyes: + problem reported (He reports vision is improving, but still has right quandrantanopia on exam) Neurologic: + memory loss All Other Systems: Reviewed and Negative Medications Current Inpatient Medications Medications (Trade) Dose Ordered Sig/Cuauhtemoc Route Start Time Stop Time Status Last Admin Dose Admin Glucose (Glucose 40% Gel) UD PRN PO 11/11/16 15:45 12/11/16 15:44 Glucose (Glucose Chew Tab) 1 tabs UD PRN PO 11/11/16 15:45 12/11/16 15:44 Dextrose (Dextrose 50% 50ML Syringe) 50 ml UD PRN IV 11/11/16 15:45 12/11/16 15:44 Glucagon (Glucagon Inj) 1 mg UD PRN SQ 11/11/16 15:45 12/11/16 15:44 Heparin Sodium (Porcine) (Heparin Sq 5000 Unit/0.5ml) 5,000 unit Q8 SQ 11/11/16 22:00 12/11/16 21:59 Future Hold 11/13/16 21:35 5,000 UNIT Acetaminophen (Tylenol Tab) 650 mg Q4H PRN PO 11/11/16 17:30 12/11/16 17:29 Al Hydrox/Mg Hydrox/Simethicone (Maalox Max Susp) 15 ml Q4H PRN PO 11/11/16 17:30 12/11/16 17:29 Magnesium Hydroxide (Milk Of Magnesia Susp) 30 ml Q12H PRN PO 11/11/16 17:30 12/11/16 17:29 Ondansetron HCl (Zofran Inj) 4 mg Q6H PRN IV 11/11/16 17:30 12/11/16 17:29 Polyethylene (Miralax Powder Packet) 17 gm DAILY PRN PO 11/11/16 17:30 12/11/16 17:29 Glucose (Glucose 40% Gel) 15-30 GRAMS 15 GRAMS... UD PRN PO 11/11/16 17:30 12/11/16 17:29 Glucose (Glucose Chew Tab) 4-8 Tablets 4 Tabl... UD PRN PO 11/11/16 17:30 12/11/16 17:29 Dextrose (Dextrose 50% 50ML Syringe) 25-50ML OF 50% DW IV FOR... UD PRN IV 11/11/16 17:30 12/11/16 17:29 Glucagon (Glucagon Inj) 1 mg UD PRN SQ 11/11/16 17:30 12/11/16 17:29 Aspirin (Ecotrin Tab) 81 mg DAILY PO 11/12/16 09:00 12/12/16 08:59 11/16/16 08:30 81 MG Levothyroxine Sodium (Synthroid Tab) 25 mcg DAILYBB PO 11/12/16 06:00 12/12/16 05:59 11/16/16 05:51 25 MCG Multivitamins/ Minerals (Multivitamin W/ Minerals Tab) 1 tab DAILY PO 11/12/16 09:00 12/12/16 08:59 11/16/16 08:30 1 TAB Spironolactone (Aldactone Tab) 50 mg DAILY PO 11/12/16 09:00 12/12/16 08:59 11/16/16 08:29 50 MG Hydralazine HCl (HydrALAZINE INJ) 10 mg Q6H PRN IV. 11/11/16 17:45 12/11/16 17:44 11/14/16 11:45 10 MG Insulin Aspart (novoLOG ASPART) SLIDING SCALE G... ACHS SC 11/12/16 07:00 12/12/16 06:59 11/16/16 08:43 5 UNITS Metformin HCl (Glucophage Tab) 500 mg BIDM PO 11/12/16 16:45 12/12/16 16:44 11/16/16 08:30 500 MG Quetiapine Fumarate (seroQUEL TAB) 12.5 mg HS PRN PO 11/12/16 20:30 12/12/16 20:29 Gadobutrol (Gadavist) 11 mmol UD PRN IV 11/13/16 20:30 11/17/16 20:29 Metoprolol Succinate (Toprol Xl Tab) 25 mg QPM PO 11/14/16 21:00 12/15/16 08:59 11/15/16 20:56 25 MG Levetiracetam 500 mg/Dextrose 105 ml @ 420 mls/hr Q12@1000,2200 IV 11/15/16 10:45 12/15/16 10:44 11/16/16 10:27 420 MLS/HR Atorvastatin Calcium (Lipitor Tab) 80 mg DAILY PO 11/16/16 09:00 12/12/16 08:59 11/16/16 08:30 80 MG Apixaban (Eliquis Tab) 5 mg BID PO 11/16/16 09:00 12/16/16 08:59 11/16/16 08:29 5 MG Insulin Glargine (Lantus Solostar Pen) 30 units BID SQ 11/16/16 21:00 12/12/16 10:59 Objective Vital Signs Date Time Temp Pulse Resp B/P (MAP) Pulse Ox O2 Delivery O2 Flow Rate FiO2 11/16/16 11:59 36.7 73 18 125/81 (96) 96 11/16/16 08:00 Room Air 11/16/16 07:27 36.7 69 16 158/90 (112) 96 Room Air 11/16/16 04:00 36.8 77 22 135/76 (95) 95 Nasal Cannula 98.0 11/16/16 04:00 Nasal Cannula 2.0 11/16/16 00:07 Nasal Cannula 2.0 11/16/16 00:00 37.3 80 20 134/79 (97) 99 Nasal Cannula 2.0 11/15/16 20:25 Nasal Cannula 2.0 11/15/16 20:12 37.1 84 18 151/90 (110) 98 Nasal Cannula 2.0 11/15/16 16:00 Room Air 11/15/16 16:00 37.3 76 20 188/100 (129) 97 157/95 (115) Physical Exam General Appearance: WD/WN, no apparent distress Eyes: normal inspection Neck: supple, no adenopathy Respiratory/Chest: chest non-tender, lungs clear, normal breath sounds, no respiratory distress, no accessory muscle use Cardiovascular: regular rate, rhythm, no edema, no gallop, no JVD, no murmur Abdomen: normal bowel sounds, non tender, soft, no organomegaly, no pulsatile mass Neurologic/Psychiatric: alert, normal mood/affect, oriented x 3 (but still has memory lapses) Skin: normal color Laboratory Results Test 11/16/16 11:10 Bedside Glucose 118 mg/dl (70-99) Assessment and Plan 66 year old male initially admitted for [facility] after recent Dx of Type 2 DM. 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 He is also experiencing difficulty with selecting words and with his memory. Left WRECKING CRANE ENGINE OPERATOR Stroke It is likely, given his paroxysmal atrial fibrillation, that his stroke was caused by his arrhythmia. Continue with anticoagulation. Confusion is slightly improved today. He is oriented x3 but still suffers lapses in memory. Continue with OT, PT and SLT to help with residual stroke symptoms. Dr. Carver also recommends a follow up MRI with and without contrast in 4-6 weeks. He will be discharged to [facility] for post-stroke rehab, as recommended by PT. His brother will transport him there. Upon d/c, he will be referred to a neuro paper folding machine operator in [place], as he is experiencing right visual field deficits. New-Onset Seizure No new seizures. Continue with 500mg of Keppra IV every 12 hours. Change to tablets prior to discharge. Arrhythmia No new episodes of atrial fibrillation or vtach. Continue to monitor on telemetry. Hypertension Most recent blood pressure was 135/76. Continue metoprolol. Type 2 Diabetes Glucose this morning was 94 - Lantus has been decreased from 35 to 30 units BID. Code status: Full code VTE: Heparin SQ Dispo: remains on telemetry. Spoke with case management today. The referral has been made to [facility] to transfer Mr. Mi. There were no beds today. Will check back tomorrow with case management to see if there are any openings. - Resident Physician Supervision Note: I was present with PGY1 Dr. Stephanie Rapp during the history and exam. I discussed the case with the resident and agree with the findings and plan as documented in the note. Any exceptions or clarifications are listed here: none. Overnight NO ISSUES. He feels well. Vision is improving slowly. NO seizures. His orientation continues to improve. VSS; BPs mildly high but intermittently gen - NAD, no dysarthria or true aphasia; a/o x 2 today; word finding difficulties - much improved heart - RRR, s1, s2 lungs - CTA b/l abd - soft, NT, ND, BS+, no HSM ext - no edema labs - CSF culture negative FSBS well controlled A/P: 1. uncontrolled T2DM - improved with intensive insulin regimen; will lower lantus to 30 units BID and lower correction factor to 30 and carb ratio to 1:10 2. hyperosmolar nonketotic coma - resolved. 3. encephalopathy - metabolic, 2nd to subacute strokes - improved. Encephalitis unlikely given the negative LP. No other infectious sources found and he remains afebrile. Appreciate neurology consultation. 4. HTN - can have some element of permissiveness in light of subacute stroke. However, due to NSVT and PAF - added toprol xl. 5. hallucinations - likely due to #3 and stroke - resolved. 6. NSV-T - continue beta gael. Troponins negative. Asymptomatic. ECHO with preserved EF and structurally normal heart. 7. PAF - eliquis BID initiated. 8. subacute stroke - left occipital and left temporal region - WRECKING CRANE ENGINE OPERATOR territory. MRA head/neck without focal stenotic lesion. Carotids with <50% ICA stenosis. ECHO w/o thrombus. Suspect embolic stroke from a. fib. Appreciate neuro consult. Cont high intensity statin. Reasonable to continue aspirin due to ?CAD history. 9. concern of seizure - cont keppra IV. Transition to po keppra at discharge. dispo - [facility]? family updated by Dr. Rapp once again. Documented By: Ruben Smith MD Resident Tracking Resident Involvement: Resident Care Provided Care Provided: Adult Hospital Medicine
[2016-11-16 15:54] VITALS: BP 178/90; PULSE 85; O2SAT 94
[2016-11-16 19:51] VITALS: BP 175/109; PULSE 87; TEMP 36.9; O2SAT 94
[2016-11-16] MEDS: METOPROLOL SUCC 25MG EXT REL TAB PO SCH (20:40)
[2016-11-17 00:12] VITALS: BP 159/109; PULSE 78; TEMP 36.6; O2SAT 96
[2016-11-17 04:33] VITALS: BP 170/92; PULSE 81; TEMP 36.7; O2SAT 95
[2016-11-17] MEDS: LEVOTHYROXINE 25 MCG TAB PO SCH (05:39)
[2016-11-17 06:29] LABS: BUN/CREATININE RATIO 12.5 (10-20); CALCIUM 8.8 mg/dl (8.5-10.1); CREATININE 1.2 mg/dl (0.60-1.40); POTASSIUM 4.2 mmol/L (3.5-5.1)
[2016-11-17] MEDS: INSULIN ASPART 100 UNITS/ML 3 ML PEN SC SCH (07:00)
[2016-11-17 07:39] VITALS: BP 122/83; PULSE 73; TEMP 36.8; O2SAT 95
--- NOTE | 2016-11-17 07:42 | Discharge Instructions ---
Discharge Instructions Date of Service Nov 17, 2016. Admission Reason for Admission: Dka(Diabetic Ketoacidoses) Discharge Discharge Diagnosis / Problem: DKA/HHS Discharge Goals Goal(s): Improve function, Increase independence, Improve disease control, Learn about illness, Therapeutic intervention Activity Recommendations Activity Level: Ambulates in room, OOB In Chair . Additional Information Patient informed of condition: Yes Advance Directives: No DNR: No Level of Care: Acute Rehab Communicable Disease: No Prognosis: Improving [place] Catheter: No Instructions / Follow-Up Instructions / Follow-Up Patient was admitted for HHS after diagnosis of T2DM one week earlier. While admitted, patient developed metabolic encephalopathy secondary to 'DKA' Patient was successfully treated for HHS, but metabolic encephalopathy continued. Patient was investigated for infection (CXR, UA), which was ruled out Patient developed word finding difficulties/aphasia, and was found to have a right visual field deficit. Patient was found to be in afib on numerous occasions while on telemetry MRI brain and MRA were performed, and patient was found to have a subacute infarct. Patient is being discharged on Keppra and Eliquis Active issues: 1 Mental status- unclear baseline but is improving. Likely a reflection of HHS , seizure meds, and stroke 2 Hypertension- Beta gael titrated up to 25 mg BID, continue to monitor; Lasix held during admission; can slowly restart as appropriate 3 Diabetes- started on levemir 30 units BID with novolog insulin sliding scale. Metformin also started; pt experiencing frequent stool, consider stopping if still present in 2 weeks. 4 Patient was apparently driving prior to admission. DOT paperwork was not completed at this visit. Current Hospital Diet Patient's current hospital diet: Diabetes Type 2 Diet, Low Sodium Diet (2gm Na) Discharge Diet Recommended Diet: AHA Diet (Heart Healthy), Low Sodium Diet (2gm Na), Diabetes Type 2 Diet Fluid Restriction: None Pending Studies Studies pending at discharge: no Laboratory Results Hemoglobin A1c Test 11/13/16 06:05 Range/Units Estimated Average Glucose 344 mg/dl Hemoglobin A1c 13.6 H 4.5-5.6 % Lipid Panel Test 11/15/16 06:01 Range/Units Triglycerides Level 137 0-150 mg/dl Cholesterol Level 102 0-200 mg/dl HDL Cholesterol 39 mg/dl Cholesterol/HDL Ratio 2.6 LDL Cholesterol, Calculated 36 mg/dl Medical Emergencies . Who to Call and When: Medical Emergencies: If at any time you feel your situation is an emergency, please call 911 immediately. . Non-Emergent Contact Non-Emergency issues call your: Primary Care Provider . . "Provider Documentation" section prepared by Rhea Camp. . Core Measure Problem Core Measures: Stroke Stroke Core Measures Reason no t-PA for Stroke: Treatment not indicated Reason no antithrom by day 2: Treatment provided - N/A Reason no antithrom at D/C: Treatment provided - N/A Reason no statin at D/C: Treatment provided - N/A Reason no anticoag w/a fib: Treatment provided - N/A
[2016-11-17] MEDS: ATORVASTATIN 40 MG TAB PO SCH (09:28)
[2016-11-17] MEDS: METFORMIN HCL 500 MG TAB PO SCH (09:28)
[2016-11-17] MEDS: APIXABAN 2.5 MG TAB PO SCH (09:29)
[2016-11-17] MEDS: SPIRONOLACTONE 100 MG TAB PO SCH (09:29)
[2016-11-17] MEDS: CEROVITE ADV FORMULA TAB PO SCH (09:29)
[2016-11-17] MEDS: LEVETIRACETAM IV 500 MG in DEXTROSE 5% 100ML 100 ML IV SCH (09:29)
[2016-11-17] MEDS: ASPIRIN 81 MG ECTAB PO SCH (09:30)
[2016-11-17] MEDS: INSULIN GLARGINE SOLOSTAR 100 UNITS/ML 3 ML PEN SQ SCH (09:33)
[2016-11-17] MEDS ORDERED: SPRN100 PO (09:49)
[2016-11-17] MEDS ORDERED: ELQ25 PO (09:49)
[2016-11-17] MEDS ORDERED: LVMIPEN SQ (09:49)
[2016-11-17] MEDS ORDERED: GLC500 PO (09:49)
[2016-11-17] MEDS ORDERED: TPRSR25 PO ×2 (09:49→11:07)
[2016-11-17] MEDS ORDERED: LPT40 PO (09:49)
[2016-11-17] MEDS ORDERED: NVLGI/PEN SQ (09:49)
[2016-11-17] MEDS ORDERED: LEVE250T PO (11:07)
--- NOTE | 2016-11-17 11:16 | Discharge Instructions ---
Discharge Instructions Date of Service Nov 17, 2016. Admission Reason for Admission: Dka(Diabetic Ketoacidoses) Discharge Discharge Diagnosis / Problem: Sub acute infarct Discharge Goals Goal(s): Improve function Activity Recommendations Activity Limitations: per Instructions/Follow-up section (See transfer: non acute discharge instructions) . Instructions / Follow-Up Instructions / Follow-Up Risk Factors for Stroke: You can reduce your chances of stroke by working with your medical provider to adopt a healthy lifestyle. Some specific ways to lower your chance of stroke are: * If you are a smoker, now is the time to stop smoking cigarettes * If you are diabetic, improve the control of your blood sugars * Avoid excessive amounts of alcohol * Control high blood pressure * Lose weight if you are overweight * Be sure to lead an active lifestyle * Eat a healthy diet low in salt, cholesterol and fat You should know about other risk factors for stroke that you are unable to control. These include: * Age 55 years or older * Male gender * Certain racial groups: , or / * Family History of Stroke, Mini stroke or Heart Attack * Sickle Cell Disease Follow Up: It is important for you to keep your follow up appointments with your medical provider. Current Hospital Diet Patient's current hospital diet: Diabetes Type 2 Diet, Low Sodium Diet (2gm Na) Discharge Diet Recommended Diet: AHA Diet (Heart Healthy), Diabetes Type 2 Diet Pending Studies Studies pending at discharge: no Laboratory Results Hemoglobin A1c Test 11/13/16 06:05 Range/Units Estimated Average Glucose 344 mg/dl Hemoglobin A1c 13.6 H 4.5-5.6 % Lipid Panel Test 11/15/16 06:01 Range/Units Triglycerides Level 137 0-150 mg/dl Cholesterol Level 102 0-200 mg/dl HDL Cholesterol 39 mg/dl Cholesterol/HDL Ratio 2.6 LDL Cholesterol, Calculated 36 mg/dl Medical Emergencies . Who to Call and When: Medical Emergencies: Call 911 immediately if you experience any of the following warning signs and symptoms of Stroke: * Sudden numbness or weakness of the face, arm or leg, especially on one side of the body * Sudden confusion, trouble speaking or understanding * Sudden trouble seeing in one or both eyes * Sudden trouble walking, dizziness, loss of balance or coordination * Sudden severe headache with no cause Do not delay calling 911 if you experience any warning signs or symptoms of a stroke. Delay in seeking medical attention may affect what treatments can be given to you. . Non-Emergent Contact Non-Emergency issues call your: Primary Care Provider . . "Provider Documentation" section prepared by Rhea Camp. . Stroke Core Measures Reason no t-PA for Stroke: Treatment not indicated Reason no antithrom by day 2: Treatment provided - N/A Reason no antithrom at D/C: Treatment provided - N/A Reason no statin at D/C: Treatment provided - N/A Reason no anticoag w/a fib: Treatment provided - N/A VTE Core Measure Inpt VTE Proph given/why not?: Unfractionated heparin SQ, T.E.D. Stockings, SCD 's
[2016-11-17 11:39] VITALS: BP 145/74; PULSE 78; TEMP 36.9; O2SAT 95
[2016-11-17 14:10] VITALS: BP 145/74; PULSE 78; TEMP 36.9; O2SAT 95
--- NOTE | 2016-11-17 15:45 | Discharge Summary ---
Discharge Summary Date of Service Nov 17, 2016. (Rhea Camp M.D.) Discharge Summary Admission Date: Nov 11, 2016 at 17:32 Discharge Date: Nov 17, 2016 Discharge Disposition: Acute care facility Principal Diagnosis: HHS Problems/Secondary Diagnoses: Subacute Left SENIOR TECHNICAL ARCHITECT infarct, Unctontrolled T2DM, Encephalopathy with hallucinations, HTN, Paroxysmal atrial fibrillation Immunizations: Have You Had Influenza Vaccine: No History of Tetanus Vaccine?: Yes History of Pneumococcal: No History of Hepatitis B Vaccine: No Procedures: Lumbar puncture, MRI brain/MRA head and neck, EEG Consultations: Neurology (Rhea Camp M.D.) Medication Reconciliation New Medications: Insulin Aspart (Novolog Flexpen) 100 Units/Ml Inj 4-9 UNITS SQ TID for 30 Days Goal glucose: 120-160 Correction factor: 30 mg/dl/unit Insulin: carb ratio: 1 unit per 10 g carb has been using 4-9 units per meal Insulin Detemir (Levemir Flextouch) 100 Unit/Ml Inj 30 UNITS SQ BID for 30 Days Levetiracetam (Keppra) 250 Mg Tab 2 TAB PO BID for 30 Days, #120 TAB Apixaban (Eliquis) 2.5 Mg Tab 5 MG PO BID for 30 Days, #120 TAB Atorvastatin (Atorvastatin Calcium) 40 Mg Tab 80 MG PO DAILY for 30 Days, #60 TAB Metformin HCl (Metformin HCl) 500 Mg Tab 500 MG PO BIDM for 30 Days, TAB Metoprolol Succinate (Metoprolol Succinate ER) 25 Mg Tabcr 25 MG PO BID for 30 Days Spironolactone (Spironolactone) 100 Mg Tab 50 MG PO DAILY for 30 Days, #15 TAB Continued Medications: Aspirin (Aspirin Ec) 81 Mg Tab 81 MG PO DAILY Cholecalciferol (Vitamin D3) 2,000 Unit Cap 2 CAP PO DAILY for 90 Days, #180 CAP 3 Refills Epinephrine (Epipen) 0.3 Mg/0.3 Ml Inj 0.3 MG IM UD, INJ Fish Oil ([place]-3) 1 Ea Cap 1 CAP PO DAILY, CAP Levothyroxine Sodium (Synthroid) 25 Mcg Tab 25 MCG PO DAILY, TAB Losartan Potassium (Cozaar) 25 Mg Tab 25 MG PO DAILY, TAB Multivitamins/Minerals (Mvi With Minerals) Tab 1 TAB PO DAILY, TAB Discontinued Medications: Atorvastatin (Lipitor) 80 Mg Tab 40 MG PO DAILY, TAB Furosemide (Lasix) 40 Mg Tab 80 MG PO DAILY, TAB Spironolactone (Aldactone) 50 Mg Tab 50 MG PO DAILY, TAB Discharge Exam Review of Systems: Constitutional: No fever, No chills, No sweats, No weight loss, No weakness , No fatigue, No problem reported Eyes: No worsening of vision, No eye pain, No redness, No discharge, No diplopia, No problem reported ENT: No hearing loss, No unusual epistaxis, No nasal symptoms, No sore throat, No tinnitus, No dental problems, No trouble swallowing, No problem reported Respiratory: No cough, No sputum, No wheezing, No shortness of breath, No dyspnea on exertion, No dyspnea at rest, No hemoptysis, No problem reported Cardiovascular: No chest pain, No orthopnea, No PND, No edema, No claudication, No palpitations, No problem reported Abdomen: + diarrhea (frequent stool since starting metformin), No pain, No nausea, No vomiting, No constipation, No GI bleeding, No problem reported Musculoskeletal: No joint pain, No muscle pain, No swelling, No calf pain, No problem reported Genitourinary - Male: No hematuria, No dysuria, No urinary frequency, No urinary urgency, No urinary hesitancy, No urinary retention, No urinary incontinence, No penile discharge, No lesions, No impotence, No problem reported Neurologic: + memory loss Psychiatric: No depression symptoms, No anhedonism, No anxiety, No insomnia , No substance abuse, No problem reported Endocrine: No fatigue, No excessive thirst, No excessive urination, No problem reported Hematologic / Lymphatic: No abnormal bleeding/bruising, No clotting problems , No swollen lymph nodes, No night sweats, No problem reported Physical Exam: General Appearance: WD/WN, no apparent distress Eyes: normal inspection, PERRL, EOMI, + pertinent finding (Right quadrantanopia) ENT: normal ENT inspection, hearing grossly normal, TMs normal, pharynx normal Neck: supple, no JVD, trachea midline Respiratory/Chest: chest non-tender, lungs clear, normal breath sounds, no respiratory distress, no accessory muscle use Cardiovascular: no edema, no murmur, + irregularly irregular Abdomen / GI: normal bowel sounds, non tender, no organomegaly Extremities: normal inspection, no pedal edema, non-tender Neurologic/Psychiatric: alert, normal mood/affect, normal reflexes, oriented x 3, + abnormal class c driver II-XII (right visual field quadrantanopia), + pertinent finding (word finding difficulty and new onset seizure) Skin: normal color, no rash (Rhea Camp M.D.) Hospital Course HPI Piter Mi, a 66 y/o male with a history of recently diagnosed T2DM, presented to the ED on 11/11/16 with confusion and weakness. The patient is a resident of [place] and is typically independent per report. The staff reports that the patient had been weak and acting unusual for the last few days. His blood sugar was checked by staff and was reportedly 702mg/dL. Despite being recently diagnosed with diabetes, he had not been started on a regimen yet. Hospital course Uncontrolled T2DM improved with intensive insulin regimen including novolog and lantus, and metformin will lower lantus to 30 units BID and lower correction factor to 30 and carb ratio to 1:10 Patient reports frequent bowel motions since starting metformin; if not resolved in 2 weeks, consider modification Hyperosmolar nonketotic coma - Resolved with IV fluids and IV insulin Encephalopathy - metabolic, 2nd to subacute strokes - improved. Encephalitis unlikely given the negative LP. No other infectious sources found and he remains afebrile. Appreciate neurology consultation. HTN - Per neuro, can have some element of permissiveness in light of subacute stroke. Added toprol xl; discharged on 25mg BID Recommend titrating dose to achieve normotensive state, including slow reintroduction of lasix, which was held on admission Hallucinations - likely due to encephalitis and stroke - resolved. Paroxysmal Atrial Fibrillation Eliquis BID initiated. Toprol XL initiated Subacute stroke - left occipital and left temporal region - SENIOR TECHNICAL ARCHITECT territory. Right quadrantanopia present, noted by neuro, along with word finding difficulty For right quadrantanopia, neuro recommends referral to neuro-television repairer MRA head/neck without focal stenotic lesion. Per Neuro, we recommend repeat MRI in 4-6 weeks Seizure on 11/14/16 Isolated, with right sided twitching ?related to subacute infarct Started on keppra IV, Discharged on PO Relatives state he had been driving independently prior to admission [place] to car have been taken by family, but no DOT paperwork was completed at this time Code Status: Full Resuscitation Total Time Spent: Greater than 30 minutes This includes examination of the patient, discharge planning, medication reconciliation, and communication with other providers. (Rhea Camp M.D.) Resident Physician Supervision Note: I interviewed and examined the patient. Discussed with Dr. Camp and agree with findings and plan as documented in the note. Any exceptions or clarifications are listed here: None Documented By: Brian Panchal feeling better sugars better wants to go to rehab. for repeat MRI ~4-6wks due to not likely but can't entirely exclude possible mass. hyperglycemia/dehydration -- improved. insulins as above stroke - med managmenet as above stable for rehab (Brian Panchal, D.Gene.) Discharge Instructions Please refer to the electronic Patient Visit Report (Discharge Instructions) for additional information. (Rhea Camp M.D.) Follow-Up Recommend follow up with PCP for diabetes management Follow up with Neuro team in 4-6 weeks for repeat MRI. (Rhea Camp M.D.) Additional Copies To Livier Gamble Resident Tracking Resident Involvement: Resident Care Provided Care Provided: [facility] (Rhea Camp M.D.)
[2016-11-21 20:37] LABS: HSV TYPE 1 DNA Not Detected (Not Detected); HSV TYPE 1&2 DNA SOURCE CSF; HSV TYPE 2 DNA Not Detected (Not Detected)
== END 2016-11-17 14:35 | DRG 64 ==
LOC: EDBD 14:46 → C.EDB 15:04 → C.2E 17:32 → ENRESERV 17:45
PROVIDERS: ADMIT Hospitalist; ATTEND Family Medicine
PROC: 009U3ZX Drainage of Spinal Canal, Percutaneous Approach, Diagnostic (ICD-10-PCS; principal; 2016-11-14)
DX: I63.432 Cerebral infarction due to embolism of left posterior cerebral artery (principal); G93.41 Metabolic encephalopathy; E11.00 Type 2 diabetes mellitus with hyperosmolarity without nonketotic hyperglycemic-hyperosmolar coma (NKHHC); I13.0 Hypertensive heart and chronic kidney disease with heart failure and stage 1 through stage 4 chronic kidney disease, or unspecified chronic kidney disease; I50.32 Chronic diastolic (congestive) heart failure; N17.9 Acute kidney failure, unspecified; E87.1 Hypo-osmolality and hyponatremia; I47.2 Ventricular tachycardia; E11.65 Type 2 diabetes mellitus with hyperglycemia; E11.22 Type 2 diabetes mellitus with diabetic chronic kidney disease; N18.3 Chronic kidney disease, stage 3 (moderate); E03.9 Hypothyroidism, unspecified; E86.0 Dehydration; G40.909 Epilepsy, unspecified, not intractable, without status epilepticus; H53.469 Homonymous bilateral field defects, unspecified side; I25.10 Atherosclerotic heart disease of native coronary artery without angina pectoris; E83.39 Other disorders of phosphorus metabolism; I48.0 Paroxysmal atrial fibrillation; Z79.01 Long term (current) use of anticoagulants; Z95.5 Presence of coronary angioplasty implant and graft; Z79.82 Long term (current) use of aspirin; Z79.899 Other long term (current) drug therapy; Z79.84 Long term (current) use of oral hypoglycemic drugs; Z82.3 Family history of stroke; Z82.49 Family history of ischemic heart disease and other diseases of the circulatory system

== ENCOUNTER → 2017-02-17 | Outpatient (CLI) | payer OTHER ==
[~2017-02-17] MED LIST changes: -ATOR-26 PO; +CHOL2000 PO; +ELQ25 PO; +EPP3/2 IM; -ERGO500037 PO; +GLC500 PO; -LISI-461 PO; +LOSA1TAB PO; +LPT40 PO; +LVMIPEN SQ; +NVLGI/PEN SQ; +SPRN100 PO; +TPRSR25 PO; -TRIATAB3 PO
[2017-02-17 12:39] LABS: BLOOD UREA NITROGEN 29 mg/dl (7-18); BUN/CREATININE RATIO 20.6 (10-20); CALCIUM 9.9 mg/dl (8.5-10.1); CARBON DIOXIDE 26 mmol/L (21-32); CHLORIDE 104 mmol/L (98-107); GLUCOSE 93 mg/dl (70-99); MAGNESIUM 2.1 mg/dl (1.8-2.4); POTASSIUM 3.8 mmol/L (3.5-5.1); SODIUM 138 mmol/L (136-145)
[2017-02-17 18:07] LABS: URINE PROTIEN/CREAT RATIO 0.1 (0-0.2); URINE TOTAL PROTEIN 13.4 mg/dl (0-11.9)
== END | disposition home or self-care (01) ==
LOC: C.LABBFT 10:10
PROVIDERS: ATTEND Internal Medicine Nephrology
DX: N18.3 Chronic kidney disease, stage 3 (moderate) (principal); Z00.00 Encounter for general adult medical examination without abnormal findings; E11.9 Type 2 diabetes mellitus without complications

== ENCOUNTER → 2017-02-23 | Outpatient (CLI) | payer OTHER ==
[~2017-02-23] MED LIST changes: +GADAVIST IV PRN
--- NOTE | 2017-02-23 13:20 | DIAGNOSTIC IMAGING REPORT ---
MRI OF THE BRAIN COMBO CLINICAL HISTORY: Partial seizure. COMPARISON STUDY: CT of the brain dated 11/15/2016. MRI of the brain dated 11/13/2016. TECHNIQUE: MRI of the brain was performed utilizing various T1 and T2-weighted sequences in the axial, sagittal, and coronal planes. Contrast-enhanced sequences were acquired following the administration of 10 cc of Gadavist. The examination is performed using the seizure protocol. FINDINGS: Brain parenchyma: There are age-related involutional changes noting mild patchy subcortical and periventricular microangiopathic disease. There is no hemorrhage or mass effect. There is no restricted diffusion to suggest acute ischemia. No enhancing mass lesion is identified on the postcontrast images. Cota-white matter differentiation is preserved. No extra-axial fluid collection is seen. The cerebellar tonsils are normal in configuration. Ventricles, sulci, and cisterns: Prominent secondary to involutional change. Pituitary and sella: Unremarkable. Intracranial vasculature: Normal flow voids are maintained at the skull base. Orbits: The bony orbits are grossly intact. Orbital contents are normal in appearance. Sinuses and mastoids: There is a left mastoid effusion. The right mastoid air cells and the paranasal sinuses are clear. Calvarium: Unremarkable. Cervical cord: Partially visualized cervical spinal cord is normal in morphology and signal intensity. IMPRESSION: 1. There is no hemorrhage, enhancing mass, or evidence of acute ischemia. 2. The tiny left occipital infarct and the questioned abnormality within the left temporal lobe seen on 11/13/2016 are no longer identified. 3. Left mastoid effusion. Electronically signed by: Adan Valdovinos M.D. 02/23/2017 1:18 PM Dictated Date/Time: 02/23/2017 1:13 PM
--- NOTE | 2017-02-24 14:51 | EEG Procedure Note ---
EEG Procedure Note Date of Service Feb 23, 2017. Start / End Times Start Time: 1:38 PM End Time: 1:58 PM Referring Physician Duy Carver History This is a 66-year-old female with reported abnormal MRI and episodes concerning for partial seizures. EEG for further evaluation of seizure etiology Home Medication List Scheduled Apixaban (Eliquis), 5 MG PO BID Aspirin (Aspirin Ec), 81 MG PO DAILY Atorvastatin (Atorvastatin Calcium), 80 MG PO DAILY Cholecalciferol (Vitamin D3), 2 CAP PO DAILY Epinephrine (Epipen), 0.3 MG IM UD Fish Oil ([place]-3), 1 CAP PO DAILY Insulin Aspart (Novolog Flexpen), 4-9 UNITS SQ TID Insulin Detemir (Levemir Flextouch), 30 UNITS SQ BID Levothyroxine Sodium (Synthroid), 25 MCG PO DAILY Losartan Potassium (Cozaar), 25 MG PO DAILY Metformin HCl (Metformin HCl), 500 MG PO BIDM Metoprolol Succinate (Metoprolol Succinate ER), 25 MG PO BID Multivitamins/Minerals (Mvi With Minerals), 1 TAB PO DAILY Spironolactone (Spironolactone), 50 MG PO DAILY Inpatient Medication List Current Inpatient Medications Medications (Trade) Dose Ordered Sig/Cuauhtemoc Route Start Time Stop Time Status Last Admin Dose Admin Gadobutrol (Gadavist) 10 mmol UD PRN IV 02/23/17 13:00 02/27/17 12:59 Description This is a 21 electrode EEG with a single channel dedicated to limited EKG. The electrodes were placed in accordance with the International 10-20 system. At the start of the recording the patient was in an awake state. Background was well organized and composed of symmetric mixed alpha and beta frequencies. There was a symmetric well-formed moderate amplitude 8-9 Hz posterior dominant rhythm that was reactive to eye opening and closure. Hyperventilation was not done. Intermittent photic stimulation at various frequencies produced no abnormalities. Sleep was indicated by vertex waves and symmetric sleep spindles. Interpretation This is a normal awake and asleep routine EEG. There was no electrographic seizures or epileptiform discharges. Clinical Correlation A normal EEG does not rule out epilepsy if there is a strong clinical suspicion.
== END | disposition home or self-care (01) ==
LOC: C.MRI 11:22
PROVIDERS: ATTEND Psychiatry & Neurology Neurology
DX: R90.89 Other abnormal findings on diagnostic imaging of central nervous system (principal); G40.209 Localization-related (focal) (partial) symptomatic epilepsy and epileptic syndromes with complex partial seizures, not intractable, without status epilepticus; H74.8X2 Other specified disorders of left middle ear and mastoid

== ENCOUNTER → 2017-04-21 | Outpatient (CLI) | payer OTHER ==
[~2017-04-21] MED LIST changes: -GADAVIST IV PRN
--- NOTE | 2017-04-21 15:11 | MAMMOGRAPHY REPORT ---
MALE BILATERAL DIGITAL DIAGNOSTIC MAMMOGRAM TOMOSYNTHESIS WITH CAD AND TARGETED BILATERAL ULTRASOUND: 04/21/2017 CLINICAL HISTORY: 66-year-old male with bilateral breast soreness and lumps for many months to years. No skin erythema or nipple discharge. No known family history of breast cancer. TECHNIQUE: Breast tomosynthesis in addition to standard 2D mammography was performed. Current study was also evaluated with a Computer Aided Detection (CAD) system. COMPARISON: No prior exams were available for comparison. BREAST COMPOSITION: The breast parenchyma is predominantly fatty replaced with scattered fibroglandu lar elements. FINDINGS: There is moderate bilateral gynecomastia. No suspicious mass, architectural distortion or cluster of suspicious microcalcifications is seen. Targeted ultrasound was performed in the periareolar and retroareolar aspect of each breast in the ar ea of soreness and lumps pointed out by the patient. There is a hypoechoic mound of normal fatty and glandular tissue, compatible with gynecomastia. No underlying solid or cystic mass is seen. No foc al skin thickening or drainable fluid collection. IMPRESSION: ACR BI-RADS CATEGORY 2: BENIGN, TARGETED ULTRASOUND ACR BI-RADS CATEGORY 2: BENIGN There is moderate bilateral gynecomastia. No mammographic or targeted sonographic evidence of malign javier. Clinical follow-up is recommended as to possible underlying cause of the gynecomastia. These results and recommendations were discussed with the patient and his brother at the time of the exam. Approximately 10% of breast cancers are not detected with mammography. A negative mammographic report should not delay biopsy if a clinically suggestive mass is present. Deyanira Hall M.D. ay/:04/21/2017 10:27:24 [place] [address] Drier: Cele HESTER)(Rubin), [facility] letter sent: Normal 1/2 BI-RADS Code: ACR BI-RADS Category 2: Benign Ultrasound BI-RADS: ACR BI-RADS Category 2: Benign
== END | disposition home or self-care (01) ==
LOC: C.MAMM 09:40
PROVIDERS: ATTEND Physician Assistant
DX: N64.4 Mastodynia (principal); N62 Hypertrophy of breast

== ENCOUNTER 2017-05-10 15:44 | Emergency (ER) | payer OTHER ==
[~2017-05-10] VITALS: Ht 177.8 cm; Wt 89.6 kg
[2017-05-10 15:50] VITALS: BP 131/82; PULSE 61; TEMP 36.5; O2SAT 97; Ht 177.8 cm; Wt 89.6 kg
--- NOTE | 2017-05-10 16:08 | EMERGENCY ROOM VISIT NOTE ---
History First contact with patient: 15:55 Chief Complaint: ARM PAIN Stated Complaint: FELL ON RT ARM History of Present Illness The patient is a 66 year old male who presents to the Emergency Room with complaints of right shoulder pain for 2 days. The patient slipped on the ice 2 nights ago landing on the lateral aspect of his right shoulder. He has pain with any range of motion, which is significantly limited. He denies any other injuries. No numbness or tingling into the hand. No pain in the elbow. He took Motrin with good pain relief prior to arrival. Review of Systems 6 system review negative. Please see pertinent positives in the history of present illness section. Past Medical/Surgical History Medical Problems: (1) CORON ATHEROSCLER NOS TYPE VESSEL, [place] OR GRAFT (2) DKA (diabetic ketoacidoses) (3) HYPERTENSION NOS (4) Percutaneous transluminal coronary angioplasty (5) Placement of stent in coronary artery Family History Heart disease Stroke Social History Smoking Status: Never Smoker Drug Use: none Marital Status: Occupation Status: retired Current/Historical Medications Scheduled Apixaban (Eliquis), 5 MG PO BID Aspirin (Aspirin Ec), 81 MG PO DAILY Atorvastatin (Atorvastatin Calcium), 80 MG PO DAILY Cholecalciferol (Vitamin D3), 2 CAP PO DAILY Epinephrine (Epipen), 0.3 MG IM UD Fish Oil ([place]-3), 1 CAP PO DAILY Levetiracetam (Keppra), 500 MG PO UNKNOWN Levothyroxine Sodium (Synthroid), 25 MCG PO DAILY Losartan Potassium (Cozaar), 25 MG PO DAILY Metformin HCl (Metformin HCl), 500 MG PO BIDM Metoprolol Succinate (Metoprolol Succinate ER), 25 MG PO BID Multivitamins/Minerals (Mvi With Minerals), 1 TAB PO DAILY Spironolactone (Aldactone), 50 MG PO DAILY Physical Exam Vital Signs Date Time Temp Pulse Resp B/P (MAP) Pulse Ox O2 Delivery O2 Flow Rate FiO2 05/10/17 15:50 36.5 61 17 131/82 97 Room Air Physical Exam VITALS: Vitals are noted on the nurse's note and reviewed by myself. Vital signs stable. GENERAL: 66-year-old male, in no acute distress, nondiaphoretic, well-developed well-nourished. SKIN: Intact HEAD: Normocephalic atraumatic. MUSCULOSKELETAL: RIGHT UPPER EXTREMITY: Significant decreased range of motion with flexion and abduction of the shoulder. Mild tenderness over the distal clavicle and anterior shoulder. Mortician Supplies Sales Representative strength 5/5. Radial pulse +2. No tenderness over the scapula. No tenderness over the mid humerus. NEURO: Patient was alert and oriented to person place and time. Normal sensation to touch. No focal neurological deficits. Medical Decision & Procedures ER Provider Diagnostic Interpretation: Shoulder x-ray Patient Name: EPI ANDINO Unit Number: [id number] Dictated: 05/10/171619 Transcribed: 05/10/171619 MS Printed Date/Time: [~ rep prt dt]/[~ rep prt tm] [~ rep ct labl] - [~ rep ct ivnm] [facility] [place] [address] Dictated: 05/10/171619 Transcribed: 05/10/171619 MS Printed Date/Time: [~ rep prt dt]/[~ rep prt tm] [~ rep ct labl] - [~ rep ct ivnm] IMPRESSION: Degenerative change. No acute process. The above report was generated using voice recognition software. It may contain grammatical, syntax or spelling errors. Electronically signed by: Robert Villalta M.D. 05/10/2017 4:21 PM Dictated Date/Time: 05/10/2017 4:20 PM The status of this report is Signed. Draft = Not yet reviewed or approved by Radiologist. Signed = Reviewed and approved by Radiologist. <AttendingPhy></AttendingPhy> <FamilyPhy>Bill Galarza PA-C</FamilyPhy> < PrimaryPhy>Bill Galarza PA-C</PrimaryPhy> <UnitNumber>[id number]</UnitNumber > <VisitNumber>[id number]</VisitNumber> <PatientName>EPI ANDINO</ PatientName> <DateOfBirth>1950</DateOfBirth> <Location>[facility]</Location> < ServiceDate>05/10/17</ServiceDate> <MNE>ESINDI</MNE> <OrderingPhy>Urban, Roxy P PA-C</OrderingPhy> <OrderingPhyMNE>f rep ord dr cervantes</OrderingPhyMNE> < DictatingPhyMNE>f rep dict dr cervantes</DictatingPhyMNE> <CCListMNE>f rep ct mne</ CCListMNE> <AdmittingPhyMNE>f pt admit dr cervantes</AdmittingPhyMNE> <AttendingPhyMNE >f pt attend dr cervantes</AttendingPhyMNE> <ConsultingPhyMNE>f pt consult dr cervantes</ConsultingPhyMNE> <FamilyPhyMNE>f pt fam dr cervantes</FamilyPhyMNE> <OtherPhyMNE>f pt other dr cervantes</OtherPhyMNE> < PrimaryPhyMNE>f pt prim care dr cervantes</PrimaryPhyMNE> <ReferringPhyMNE>f pt referring dr cervantes</ReferringPhyMNE> ED Course The patient was seen and examined He declined pain medication Imaging was performed and reviewed The findings were discussed with the patient and the patient's family. He voiced understanding. He was given a sling. Discharge instructions were reviewed, and the patient was discharged in good condition Medical Decision Differential diagnosis: Contusion, fracture, ligamentous injury This patient is a 66-year-old male that presents to the emergency department with right shoulder pain after a fall. His range of motion was significantly limited on exam. No fractures were noted on the x-ray. I am concerned that he has an injury to his rotator cuff. He was put in a sling. He was instructed to follow-up with orthopedics. The patient and the patient's family are comfortable with this plan, and he was discharged in good condition This chart was completed in part utilizing [employer] Voice Recognition software. Attempts were made to minimize the grammatical errors, random word insertions, pronoun errors and incomplete sentences. Any formal questions or concerns about the content, text or information contained within the body of this dictation should be directly addressed to the provider for clarification. Medication Reconcilliation Current Medication List: was personally reviewed by ne Blood Pressure Screening Patient's blood pressure: Normal blood pressure Impression Primary Impression: Right shoulder injury Departure Information Dispostion Home / Self-Care Condition GOOD Referrals Bill Galarza PA-C (PCP) Arturo Elizabeth MD Patient Instructions My [facility] Additional Instructions Epi was evaluated in the emergency department for an injury to the right shoulder. No fractures were seen on the x-ray. There is concern for injury to his rotator cuff. Please apply ice for 20 minute intervals at the time for the next 48 hours. Rest the arm in a sling. Please call the orthopedic doctor on Thursday for a follow-up appointment. Ibuprofen 600 mg and/or Tylenol 1000 mg every 8 hours. You may also alternate these medications for more effective pain relief: Ibuprofen --4 HRS--> Tylenol --4 HRS--> ibuprofen --4 HRS--> Tylenol .... Please do not hesitate to return to the emergency department with any new, worsening or concerning symptoms.
[2017-05-10] MEDS ORDERED: LEVE500T13 PO (16:12)
[2017-05-10] MEDS ORDERED: SPIR50TA2 PO (16:12)
[2017-05-10] MEDS ORDERED: APIX1TAB3 PO (16:12)
--- NOTE | 2017-05-10 16:22 | DIAGNOSTIC IMAGING REPORT ---
R SHOULDER MIN 2 VIEWS ROUTINE CLINICAL HISTORY: R shoulder pain Fell landing on shoulder trauma. Pain. COMPARISON: None. DISCUSSION: Moderate degenerative changes of glenohumeral as well as acromioclavicular joints. No well-defined fracture. No evidence of dislocation. Several old right-sided rib fractures. No acute bony abnormality. There is no evidence for soft tissue swelling. IMPRESSION: Degenerative change. No acute process. The above report was generated using voice recognition software. It may contain grammatical, syntax or spelling errors. Electronically signed by: Robert Villalta M.D. 05/10/2017 4:21 PM Dictated Date/Time: 05/10/2017 4:20 PM
--- NOTE | 2017-05-10 17:01 | EMERGENCY ROOM VISIT NOTE ---
ED Visit Note First contact with patient: 15:55 Staff note: I have reviewed the Patients chart and have discussed this case with my PA. I generally agree with the ED note and findings.
== END 2017-05-10 17:03 | disposition home or self-care (01) ==
LOC: C.EDB 15:46 → C.EDD 17:03
DX: S49.91XA Unspecified injury of right shoulder and upper arm, initial encounter (principal); W00.0XXA Fall on same level due to ice and snow, initial encounter; W22.8XXA Striking against or struck by other objects, initial encounter; I25.10 Atherosclerotic heart disease of native coronary artery without angina pectoris; E11.9 Type 2 diabetes mellitus without complications; I10 Essential (primary) hypertension; Z98.61 Coronary angioplasty status; Z82.3 Family history of stroke; Z79.01 Long term (current) use of anticoagulants; Z79.82 Long term (current) use of aspirin; Z79.899 Other long term (current) drug therapy; Z79.84 Long term (current) use of oral hypoglycemic drugs

== ENCOUNTER 2022-01-04 17:51 | Inpatient (IN) ==
[2022-01-04 18:42] LABS: Basophils # (auto) 0.02 K/uL (0-0.2); Basophils % (auto) 0.4 %; Hematocrit (blood only) 45.1 % (40.1-51.0); Hemoglobin 15.4 g/dl (14.0-18.0); Immature Granulocytes # (auto) 0.01 K/uL (0.00-0.02); Immature Granulocytes % (auto) 0.2 %; Lymphocytes # (auto) 1.02 K/uL (1.2-3.4); Lymphocytes % (auto) 20.6 %; Mean Corpuscular Hemoglobin 29.9 pg (25.0-34.0); Mean Corpuscular Hgb Conc 34.1 g/dL (32.0-36.0); Mean Corpuscular Volume 87.6 fL (80.0-100.0); Mean Platelet Volume 10.7 fL (9.4-12.4); Monocytes # (auto) 1.16 K/uL (0.24-0.82); Monocytes % (auto) 23.5 %; Neutrophils # (auto) 2.73 K/uL (1.4-6.5); Neutrophils % (auto) 55.3 %; Platelet Count 202 K/uL (130-400); RDW Coefficient of Variation 13.2 % (11.5-14.5); RDW Standard Deviation 42.8 fL (36.4-46.3); Red Blood Count 5.15 M/uL (4.63-6.08); White Blood Count 4.94 K/ul (4.8-10.8)
--- NOTE | 2022-01-04 18:47 | XRay Report ---
SINGLE VIEW CHEST CLINICAL HISTORY: Atypical chest pain. FINDINGS: An AP, portable, upright chest radiograph is compared to study dated 11/17/2020. The heart i s enlarged noting atherosclerotic calcification of the thoracic aorta. The pulmonary vasculature is n ot congested. Chronic interstitial thickening is similar to previous. There is mild bibasilar scarrin g/atelectasis. The lungs and pleural spaces are otherwise clear. No pneumothorax is seen. The skeleta l structures are osteopenic. The bony thorax is grossly intact. IMPRESSION: Cardiomegaly with no active disease in the chest. ACT 112: Negative or not required by law. Electronically signed by: Adan Valdovinos M.D. 01/04/2022 6:45 PM
--- NOTE | 2022-01-04 18:47 | Emergency Department Note ---
Impression & Plan Syncope and collapse, COVID-19, Atrial fibrillation ED Provider Note NAME: KALEB ANDINO AGE: 71 SEX: M : 1950 ARRIVES VIA: Ambulance INFORMANT: Patient ED PROVIDER(S): Brian Carmona DO CHIEF COMPLAINT: syncope HPI: Patient is a 71-year-old male with a past medical history of diabetes, paroxysmal A. fib on a NOAC who presents the ER following a syncopal episode. He notes that he was standing and he just passed out. He had no prodromal symptoms. He denies any headache or change in vision. No chest pain or shortness of breath. No nausea, vomiting, or diarrhea. No dysuria, urgency, or frequency. No other exacerbating or remitting factors. He admits to taking a blood thinner. He is not sure whether he hit his head when he fell. He does not believe that anybody noticed any shaking when he passed out. ROS: See above HPI for pertinent positives & negatives. A total of 10 systems reviewed and were otherwise negative. PAST MEDICAL HISTORY:See Below PAST SURGICAL HISTORY:See Below FAMILY HISTORY:See Below SOCIAL HISTORY:See Below HOME MEDICATIONS:See Below ALLERGIES:See Below VITALS:See Below PHYSICAL EXAMINATION: GENERAL: Sitting up in bed, alert, well appearing, well nourished, no distress, non-toxic HEAD: NC/AT EYE EXAM: normal conjunctiva. PERRL and EOM's grossly intact. OROPHARYNX: no exudate, no erythema, lips, buccal mucosa, and tongue normal and mucous membranes are moist NECK: supple, no nuchal rigidity, no adenopathy, non-tender LUNGS: Clear to auscultation. Normal chest wall mechanics HEART: no murmurs, S1 normal and S2 normal ABDOMEN: abdomen soft, non-tender, normo-active bowel sounds, no masses, no rebound or guarding. UPPER EXTREMITIES: upper extremities are grossly normal. LOWER EXTREMITIES: No pitting edema. NEURO EXAM: Normal sensorium, cranial nerves II-XII grossly intact, normal speech, no gross weakness of arms, no gross weakness of legs. MEDICAL DECISION MAKING: Patient is a 71-year-old male who presents ER for syncopal episode with no other complaints with exception of a mild cough. IV was established blood work was obtained. Labs show no significant leukocytosis or anemia. Mild hyponatremia 134. Bilirubin LFTs were unremarkable. Troponin was negative. Lipase normal. COVID was positive. He had no chest pain or shortness of breath. CT of the hea d was negative. EKG shows A. fib. Previously he was in a sinus rhythm and this likely consistent with his paroxysmal A. fib. Chest x-ray was unremarkable. He was updated bedside and [facility] with [facility]. Triage Nursing notes reviewed. Limited review of prior medical records performed Vital Signs: reviewed and remarkable for HTN Differential diagnosis: Differential diagnosis includes etiologies such as vasovagal event, infection, hypoglycemia, electrolyte abnormalities, cardiac sources, intracerebral event, toxicologic, neurologic, as well as others were entertained. ER treatment provided: See below Diagnostics interpreted by me: ECG: A. fib rate 85 Normal axis Poor baseline QTC 423 Cardiac Monitoring: An order was placed for continuous cardiac monitoring. The monitor shows a rate of 82 with A. fib rhythm. Laboratory studies: As stated above and show below. Imaging studies: CT head was negative Portable AP upright 1 view of the chest was unremarkable Consultation(s): Discussed with Dr. Ze Wood for further evaluation Procedures: none Critical Care: None Past Med/Surg History Medical History Cor athrscl-uns vessel (01/30/13) DKA (diabetic ketoacidoses) DMII (diabetes mellitus, type 2) H/O: stroke HTN (hypertension) Stroke Surgical History History of coronary artery stent placement (01/30/13) Family History Mother Heart disease Father Heart disease Other No pertinent family history Social History Smoking Status: Never smoker Hx Alcohol Use: No Hx Substance Use: No Preferred Language: Malian Feels Safe at Home: Yes Allergies Allergies Allergy/AdvReac Type Severity Reaction Status Date / Time bee venom protein (honey bee) Allergy Severe breathing Verified 01/04/22 20:20 problems Home Meds Home Medications Medication Instructions Recorded Confirmed apixaban 5 mg tablet 5 mg PO BID 11/17/20 01/04/22 aspirin 81 mg tablet,delayed 81 mg PO DAILY 11/17/20 01/04/22 release atorvastatin 80 mg tablet 80 mg PO DAILY 11/17/20 01/04/22 cholecalciferol (vitamin D3) 25 25 mcg PO DAILY 11/17/20 01/04/22 mcg (1,000 unit) tablet epinephrine 0.3 mg/0.3 mL 0.3 mg IM .PRN/UD 11/17/20 01/04/22 injection, auto-injector (EpiPen) gabapentin 100 mg capsule 100 mg PO BID 11/17/20 01/04/22 metformin 500 mg tablet 500 mg PO BIDM 11/17/20 01/04/22 multivitamin 1 tab PO DAILY 11/17/20 01/04/22 spironolactone 50 mg tablet 50 mg PO DAILY 11/17/20 01/04/22 losartan 50 mg tablet 50 mg PO DAILY 01/04/22 01/04/22 Results & Data (ED) Vital Signs Vital Signs - 24 hr 01/04/22 17:59 01/04/22 19:04 Temperature 37.6 C H Temperature Source Oral Pulse Rate 83 Pulse Rate [Apical] 74 Pulse Rhythm [Apical] Regular Pulse Strength [Apical] Normal Respiratory Rate 20 15 Respiratory Effort / Characteristics Non-Labored Non-Labored Spontaneous Respiratory Depth Normal Normal Respiratory Pattern Regular Blood Pressure 152/91 H Blood Pressure [Right Arm] 114/85 Blood Pressure Mean 111 Blood Pressure Mean [Right Arm] 94 Blood Pressure Position Lying Blood Pressure Position [Right Arm] Lying Pulse Oximetry 97 96 Oxygen Delivery Method Room Air Room Air Sepsis Recent Fever Within 48 Hours No Sepsis New/Unexplained Change in Mental Status No Sepsis Action Taken by Nursing No Action Required Laboratory Data Result diagrams: 01/04/22 18:26 01/04/22 18:26 Lab Results 01/04/22 01/04/22 01/04/22 Range/Units 18:26 18:26 19:25 WBC 4.94 (4.8-10.8) K/ul RBC 5.15 (4.63-6.08) M/uL Hgb 15.4 (14.0-18.0) g/dl Hct 45.1 (40.1-51.0) % MCV 87.6 (80.0-100.0) fL MCH 29.9 (25.0-34.0) pg MCHC 34.1 (32.0-36.0) g/dL RDW Std Deviation 42.8 (36.4-46.3) fL RDW Coeff of Khadra 13.2 (11.5-14.5) % Plt Count 202 (130-400) K/uL MPV 10.7 (9.4-12.4) fL Immature Gran % (Auto) 0.2 % Neut % (Auto) 55.3 % Lymph % (Auto) 20.6 % [place] % (Auto) 23.5 % Eos % (Auto) 0.0 % Baso % (Auto) 0.4 % Neut # (Auto) 2.73 (1.4-6.5) K/uL Lymph # (Auto) 1.02 L (1.2-3.4) K/uL [place] # (Auto) 1.16 H (0.24-0.82) K/uL Eos # (Auto) 0.00 (0-0.50) K/uL Baso # (Auto) 0.02 (0-0.2) K/uL Immature Gran # (Auto) 0.01 (0.00-0.02) K/uL Sodium 134 L (136-145) mmol/L Potassium 3.8 (3.5-5.1) mmol/L Chloride 102 (98-107) mmol/L Carbon Dioxide 22 (21-32) mmol/L Anion Gap 10 (3-11) BUN 29 H (6-23) mg/dl Creatinine 1.38 (0.6-1.4) mg/dl Est Cr Clr Drug Dosing 50.7 ml/min Est GFR ( Amer) 59.2 ml/min Est GFR (Non-Af Amer) 51.1 ml/min BUN/Creatinine Ratio 21.0 H (10-20) Glucose 97 (70-99(Fasting)) mg/dl Calcium 8.9 (8.5-10.1) mg/dl Total Bilirubin 0.4 (0.2-1.0) mg/dl AST 23 (13-39) U/L ALT 18 (7-52) U/L Alkaline Phosphatase 72 (34-104) U/L Troponin I High Sens 10.1 (0-20) pg/ml Total Protein 6.8 (6.0-8.3) gm/dl Albumin 3.9 (3.4-5.0) gm/dl Globulin 2.9 (2.5-4.0) gm/dl Albumin/Globulin Ratio 1.3 (0.9-2) Lipase 16 (11-82) U/L SARS-CoV-2, RNA, NAAT POSITIVE A* (NEGATIVE) Imaging Data Radiologist's Impression: Chest X-Ray 01/04/22 18:05 SINGLE VIEW CHEST CLINICAL HISTORY: Atypical chest pain. FINDINGS: An AP, portable, upright chest radiograph is compared to study dated 11/17/2020. The heart is enlarged noting atherosclerotic calcification of the thoracic aorta. The pulmonary vasculature is not congested. Chronic interstitial thickening is similar to previous. There is mild bibasilar scarring/atelectasis. The lungs and pleural spaces are otherwise clear. No pneumothorax is seen. The skeletal structures are osteopenic. The bony thorax is grossly intact. IMPRESSION: Cardiomegaly with no active disease in the chest. ACT 112: Negative or not required by law. Electronically signed by: Adan Valdovinos M.D. 01/04/2022 6:[address] 01/04/22 19:25 CT SCAN OF THE BRAIN WITHOUT IV CONTRAST CLINICAL HISTORY: Syncope. COMPARISON STUDY: CT of the brain dated 09/24/2018. TECHNIQUE: Unenhanced axial CT scan of the brain is performed from the vertex to the skull base. A dose lowering technique was utilized adhering to the imer [place]. CT DOSE: 537.48 mGy.cm FINDINGS: Brain parenchyma: There is age-related involutional change noting mild subcortical and periventricular microangiopathic disease. There is no hemorrhage, mass effect, or evidence of acute territorial ischemia by CT criteria. Cota-white matter differentiation is preserved. No extra-axial fluid collection is seen. Ventricles, sulci, cisterns: Prominent secondary to involutional change. Intracranial vasculature: There is atherosclerotic calcification of the cavernous carotid and vertebral artery. Calvarium: The skeletal structures are osteopenic. No depressed calvarial fracture is identified. Sinuses and mastoids: The visualized paranasal sinuses are clear. The mastoid air cells are well pneumatized. Orbits: The bony orbits are grossly intact. IMPRESSION: There is no hemorrhage, mass effect, or evidence of acute territorial ischemia by CT criteria. ACT 112: Negative or not required by law. Electronically signed by: Adan Valdovinos M.D. 01/04/2022 7:48 PM Discharge Plan Visit Data Chief Complaint: Syncope Stated Complaint: syncope ED Provider: Brian Carmona Discharge Problem: Syncope and collapse, COVID-19, Atrial fibrillation Patient Disposition: Admitted As Inpatient Discharge Instructions Interventions: ED Discharge Assessment Last Done: 01/04/22 21:40
[2022-01-04 19:05] LABS: Albumin Globulin Ratio 1.3 (0.9-2); Albumin Level 3.9 gm/dl (3.4-5.0); Bilirubin,Total 0.4 mg/dl (0.2-1.0); Calcium 8.9 mg/dl (8.5-10.1); Creatinine Clr Calc Pharmacy 50.7 ml/min; Est GFR (African American) 59.2 ml/min; Est GFR (Non-African American) 51.1 ml/min; Globulin 2.9 gm/dl (2.5-4.0); Potassium 3.8 mmol/L (3.5-5.1); Total Protein 6.8 gm/dl (6.0-8.3)
[2022-01-04 19:11] LABS: Troponin I High Sensitivity 10.1 pg/ml (0-20)
--- NOTE | 2022-01-04 19:50 | History & Physical Report ---
Date of Service January 04, 2022 History of Present Illness Chief Complaint: Syncope Primary Care Provider: NO PCP Epi is a 71 year old male with a PMH significant for HTN, DMII, Afib, left occipital and temporal Allergies Allergy/AdvReac Type Severity Reaction Status Date / Time bee venom protein (honey bee) Allergy Severe breathing Verified 11/17/20 21:49 problems Home Medications Medication Instructions Recorded Confirmed Type acetaminophen 325 mg tablet 650 mg PO TID PRN Pain 11/17/20 11/17/20 History apixaban 5 mg tablet 5 mg PO BID 11/17/20 11/17/20 History aspirin 81 mg tablet,delayed 81 mg PO DAILY 11/17/20 11/17/20 History release atorvastatin 80 mg tablet 80 mg PO DAILY 11/17/20 11/17/20 History cholecalciferol (vitamin D3) 25 25 mcg PO DAILY 11/17/20 11/17/20 History mcg (1,000 unit) tablet diclofenac sodium 3 % topical gel 1 applic topical QID PAIN 11/17/20 11/17/20 History epinephrine 0.3 mg/0.3 mL 0.3 mg IM .PRN/UD 11/17/20 11/17/20 History injection, auto-injector (EpiPen) gabapentin 100 mg capsule 100 mg PO BID 11/17/20 11/17/20 History levothyroxine 25 mcg tablet 25 mcg PO DAILY 11/17/20 11/17/20 History losartan 25 mg tablet 25 mg PO DAILY 11/17/20 11/17/20 History metformin 500 mg tablet 500 mg PO BIDM 11/17/20 11/17/20 History multivitamin 1 tab PO DAILY 11/17/20 11/17/20 History spironolactone 50 mg tablet 50 mg PO DAILY 11/17/20 11/17/20 History Past Med/Surg History Medical History (Updated 12/02/20 @ 00:07 by Jorge Roman) DKA (diabetic ketoacidoses) Stroke Family History Other No pertinent family history Social History Smoking Status: Never smoker Preferred Language: Pashto Feels Safe at Home: Yes Results & Data Results & Data ([facility]) Vital Signs (Past 12 Hours) Vital Signs Temp Pulse Pulse Resp BP BP Pulse Ox 01/04/22 19:04 74 15 114/85 96 01/04/22 17:59 37.6 C H 83 20 152/91 H 97 O2 Del Method 01/04/22 19:04 Room Air 01/04/22 17:59 Room Air PG Care Time/CCT Total # of Minutes Spent Total Time Spent with Patient: Total time spent is greater than 50% in coordination of care (as documented) at patient's floor/unit and/or counseling patient: Coding
--- NOTE | 2022-01-04 19:50 | CT Scan Report ---
CT SCAN OF THE BRAIN WITHOUT IV CONTRAST CLINICAL HISTORY: Syncope. COMPARISON STUDY: CT of the brain dated 09/24/2018. TECHNIQUE: Unenhanced axial CT scan of the brain is performed from the vertex to the skull base. A do se lowering technique was utilized adhering to the principles of ALARA. CT DOSE: 537.48 mGy.cm FINDINGS: Brain parenchyma: There is age-related involutional change noting mild subcortical and periventricula r microangiopathic disease. There is no hemorrhage, mass effect, or evidence of acute territorial isc hemia by CT criteria. Cota-white matter differentiation is preserved. No extra-axial fluid collection is seen. Ventricles, sulci, cisterns: Prominent secondary to involutional change. Intracranial vasculature: There is atherosclerotic calcification of the cavernous carotid and vertebr al artery. Calvarium: The skeletal structures are osteopenic. No depressed calvarial fracture is identified. Sinuses and mastoids: The visualized paranasal sinuses are clear. The mastoid air cells are well pneu matized. Orbits: The bony orbits are grossly intact. IMPRESSION: There is no hemorrhage, mass effect, or evidence of acute territorial ischemia by CT frieda martinez. ACT 112: Negative or not required by law. Electronically signed by: Adan Valdovinos M.D. 01/04/2022 7:48 PM
--- NOTE | 2022-01-04 20:13 | History & Physical Report ---
Date of Service January 04, 2022 Assessment & Plan (1) Syncope and collapse: Plan: Poor PO intake for the past few days 2/2 malaise and upset stomach likely related to covid-19 infection. This is the most likely cause of his syncopal episode today and he agrees with this assessment. Labs are consistent with dehydration. Rehydrate with intravenous fluids and ensure good oral intake prior to discharge. Monitor on telemetry overnight. Nonischemic EKG. Will trend in am. HS troponin was negative and he is having no chest pain or ACS symptoms. (2) COVID-19: Plan: Lives in a fpc. Symptom onset was , 01/02. per his report. Generalized malaise. Tolerating PO but appetite is poor. Flonase for supportive care. (3) Atrial fibrillation: Plan: chronic atrial fibrillation, rate is controlled. Cont apixaban which he takes chronically. Reports a h/o stroke in the past. Follows with the [facility] in [place]. (4) DMII (diabetes mellitus, type 2): Plan: A1C pending. On metformin as outpatient. Will transition to basal/bolus insulin in house. (5) CAD (coronary artery disease), [place] coronary artery: Plan: chronic, stable. h/o PCI in 2012. Cont medical therapy with ASA, statin, losartan, aldactone. (6) HTN (hypertension): Plan: chronic, at goal. Cont current medical therapy. (7) DVT prophylaxis: Plan: apixaban Full code confirmed with him on admission. Dispo-to home when eating more reliably. DO [facility] Hospitalist History of Present Illness Chief Complaint: syncope Primary Care Provider: LUCIA PCP 71 yo diabetic man presents to the ER following a syncopal episode. He was standing and then passed out without any prodrome symptoms. Clear when he awoke. Denied loss of bladder function. No evidence of tongue biting and this was a witnessed episode by the staff at [place] [facility] as it occurred when he was walking out to dinner this evening. Feeling malaise since . Stomach was upset and then he felt hoarse in his voice. No fevers. No chills. No vomiting, diarrhea or abdominal pain. Denies CP or SOB Lives in a fpc and reports no one around him was ill that he knows of. He is not vaccinated against covid. Has a cough that is intermittently productive. Denies headache or other issues. Allergies Allergy/AdvReac Type Severity Reaction Status Date / Time bee venom protein (honey bee) Allergy Severe breathing Verified 01/04/22 20:20 problems Home Medications Medication Instructions Recorded Confirmed Type apixaban 5 mg tablet 5 mg PO BID 11/17/20 01/04/22 History aspirin 81 mg tablet,delayed 81 mg PO DAILY 11/17/20 01/04/22 History release atorvastatin 80 mg tablet 80 mg PO DAILY 11/17/20 01/04/22 History cholecalciferol (vitamin D3) 25 25 mcg PO DAILY 11/17/20 01/04/22 History mcg (1,000 unit) tablet epinephrine 0.3 mg/0.3 mL 0.3 mg IM .PRN/UD 11/17/20 01/04/22 History injection, auto-injector (EpiPen) gabapentin 100 mg capsule 100 mg PO BID 11/17/20 01/04/22 History metformin 500 mg tablet 500 mg PO BIDM 11/17/20 01/04/22 History multivitamin 1 tab PO DAILY 11/17/20 01/04/22 History spironolactone 50 mg tablet 50 mg PO DAILY 11/17/20 01/04/22 History losartan 50 mg tablet 50 mg PO DAILY 01/04/22 01/04/22 History Past Med/Surg History Medical History Cor athrscl-uns vessel (01/30/13) DKA (diabetic ketoacidoses) DMII (diabetes mellitus, type 2) H/O: stroke HTN (hypertension) Stroke Surgical History History of coronary artery stent placement (01/30/13) Family History Mother Heart disease Father Heart disease Other No pertinent family history Social History Smoking Status: Never smoker Hx Alcohol Use: No Hx Substance Use: No Preferred Language: Danish Feels Safe at Home: Yes Review of Systems Review of Systems: All systems were reviewed and negative except as indicated on HPI above. Physical Exam Physical Exam: CONSTITUTIONAL: WNWD, vitals as above, generally NAD EYES: normal conjunctivae, mucous membranes are dry ENT: external ear and nose normal NECK: trachea midline RESPIRATORY: clear to auscultation bilaterally, no crackles, rales or wheezes, normal respiratory effort CARDIOVASCULAR: regular rate and rhythm, S1 and 2 heard without murmurs, gallops or rubs, no JVD, no peripheral edema, CHEST: inspection of chest was normal GASTROINTESTINAL: soft, nontender, nondistended. MUSCULOSKELETAL: strength 5/5 throughout, head is normocephalic and atraumatic, SKIN: warm and dry, NEUROLOGIC: CN 2-12 grossly intact, no sensory deficit, normal cognition, normal speech, no tremor PSYCHIATRIC: alert cooperative and oriented to person, place and time. Euthymic mood, makes good eye contact, language grossly intact, recent and remote memory grossly intact. Results & Data Results & Data ([facility]) Vital Signs (Past 12 Hours) Vital Signs Temp Pulse Pulse Resp BP BP Pulse Ox 01/04/22 19:04 74 15 114/85 96 01/04/22 17:59 37.6 C H 83 20 152/91 H 97 O2 Del Method 01/04/22 19:04 Room Air 01/04/22 17:59 Room Air Laboratory Results Short CBC 01/04/22 Range/Units 18:26 WBC 4.94 (4.8-10.8) K/ul Hgb 15.4 (14.0-18.0) g/dl Hct 45.1 (40.1-51.0) % Plt Count 202 (130-400) K/uL BMP 01/04/22 18:26 Sodium 134 L Potassium 3.8 Chloride 102 Carbon Dioxide 22 BUN 29 H Creatinine 1.38 Glucose 97 Calcium 8.9 Liver Function 01/04/22 Range/Units 18:26 Total Bilirubin 0.4 (0.2-1.0) mg/dl AST 23 (13-39) U/L ALT 18 (7-52) U/L Alkaline Phosphatase 72 (34-104) U/L Albumin 3.9 (3.4-5.0) gm/dl Diagnostic Findings Chest X-Ray 01/04/22 18:05 SINGLE VIEW CHEST CLINICAL HISTORY: Atypical chest pain. FINDINGS: An AP, portable, upright chest radiograph is compared to study dated 11/17/2020. The heart is enlarged noting atherosclerotic calcification of the thoracic aorta. The pulmonary vasculature is not congested. Chronic interstitial thickening is similar to previous. There is mild bibasilar scarring/atelectasis. The lungs and pleural spaces are otherwise clear. No pneumothorax is seen. The skeletal structures are osteopenic. The bony thorax is grossly intact. IMPRESSION: Cardiomegaly with no active disease in the chest. ACT 112: Negative or not required by law. Electronically signed by: Adan Valdovinos M.D. 01/04/2022 6:[address] 01/04/22 19:25 CT SCAN OF THE BRAIN WITHOUT IV CONTRAST CLINICAL HISTORY: Syncope. COMPARISON STUDY: CT of the brain dated 09/24/2018. TECHNIQUE: Unenhanced axial CT scan of the brain is performed from the vertex to the skull base. A dose lowering technique was utilized adhering to the principles of ALARA. CT DOSE: 537.48 mGy.cm FINDINGS: Brain parenchyma: There is age-related involutional change noting mild subcortical and periventricular microangiopathic disease. There is no hemorrhage, mass effect, or evidence of acute territorial ischemia by CT criteria. Cota-white matter differentiation is preserved. No extra-axial fluid collection is seen. Ventricles, sulci, cisterns: Prominent secondary to involutional change. Intracranial vasculature: There is atherosclerotic calcification of the cav ernous carotid and vertebral artery. Calvarium: The skeletal structures are osteopenic. No depressed calvarial fracture is identified. Sinuses and mastoids: The visualized paranasal sinuses are clear. The mastoid air cells are well pneumatized. Orbits: The bony orbits are grossly intact. IMPRESSION: There is no hemorrhage, mass effect, or evidence of acute territorial ischemia by CT criteria. ACT 112: Negative or not required by law. Electronically signed by: Adan Valdovinos M.D. 01/04/2022 7:48 PM
[2022-01-04] MEDS ORDERED: GLUCAGON FOR INJ 1 MG VIAL SQ PRN (22:22)
[2022-01-04] MEDS ORDERED: CARBOHYDRATES FOR HYPOGLYCEMIA PO PRN (22:22)
[2022-01-04] MEDS ORDERED: ACETAMINOPHEN 325 MG TAB PO PRN (22:22)
[2022-01-04] MEDS ORDERED: DEXTROSE 50% 50 ML SYRINGE IV PRN (22:22)
[2022-01-04] MEDS ORDERED: GLUCOSE 40% GEL 15 GM TUBE PO PRN (22:22)
[2022-01-04] MEDS ORDERED: POLYETHYLENE (MIRALAX) 17 GM PACK PO PRN (22:22)
[2022-01-04] MEDS ORDERED: SODIUM CHLORIDE 0.9% 1000ML 1,000 ML IV SCH (22:22)
[2022-01-04] MEDS ORDERED: GLUCOSE 10 TAB/TUBE PO PRN (22:22)
[2022-01-04] MEDS: APIXABAN 5 MG TABLET PO SCH (23:39)
[2022-01-04] MEDS: GABAPENTIN 100 MG CAP PO SCH (23:39)
[2022-01-05 07:48] LABS: Hematocrit (blood only) 44.7 % (40.1-51.0); Hemoglobin 14.5 g/dl (14.0-18.0); Mean Corpuscular Hemoglobin 29.1 pg (25.0-34.0); Mean Corpuscular Hgb Conc 32.4 g/dL (32.0-36.0); Mean Corpuscular Volume 89.6 fL (80.0-100.0); Mean Platelet Volume 9.9 fL (9.4-12.4); Platelet Count 182 K/uL (130-400); RDW Coefficient of Variation 13.2 % (11.5-14.5); RDW Standard Deviation 43.6 fL (36.4-46.3); Red Blood Count 4.99 M/uL (4.63-6.08); White Blood Count 4.24 K/ul (4.8-10.8)
[2022-01-05] MEDS: INSULIN ASPART PER UNIT SC SCH ×4 (07:55→20:16)
[2022-01-05] MEDS: APIXABAN 5 MG TABLET PO SCH ×2 (08:02→20:24)
[2022-01-05] MEDS: GABAPENTIN 100 MG CAP PO SCH ×2 (08:03→20:24)
[2022-01-05] MEDS: ATORVASTATIN 40 MG TAB PO SCH (08:03)
[2022-01-05] MEDS: ASPIRIN 81 MG ECTAB PO SCH (08:03)
[2022-01-05] MEDS: FLUTICASONE PROPIONATE NA SPR 16 GM BTL NAE SCH (08:03)
[2022-01-05] MEDS: CHOLECALCIFEROL 1,000 UNITS 25 MCG TAB PO SCH (08:03)
[2022-01-05 08:14] LABS: BUN Creatinine Ratio 20.2 (10-20); Calcium 8.4 mg/dl (8.5-10.1); Creatinine Clr Calc Pharmacy 54.2 ml/min; Est GFR (African American) 64.2 ml/min; Est GFR (Non-African American) 55.4 ml/min; Magnesium 1.8 mg/dl (1.7-2.4); Phosphorus 3.3 mg/dl (2.5-4.9); Potassium 4.3 mmol/L (3.5-5.1)
[2022-01-05] MEDS ORDERED: LOSARTAN POTASSIUM 50 MG TAB PO SCH (09:00)
[2022-01-05] MEDS ORDERED: SPIRONOLACTONE 25 MG TAB PO SCH (09:00)
[2022-01-05] MEDS: SODIUM CHLORIDE 0.9% 1000ML 1,000 ML IV SCH (09:38)
[2022-01-05] MEDS ORDERED: REMDESIVIR 200 MG in SODIUM CHLORIDE 0.9% 210 ML IV STA (15:41)
--- NOTE | 2022-01-05 15:45 | Hospitalist Progress Note ---
Date of Service January 05, 2022 Assessment & Plan (1) Syncope and collapse: Plan: Poor PO intake for the past few days 2/2 malaise and upset stomach likely related to covid-19 infection. EKG: no signs of ischemia Telemetry: no arrhythmia management of COVID per below continue IV fluids (2) COVID-19: Plan: Lives in a snf. Symptom onset was , 01/02. per his report. Generalized malaise. Tolerating PO but appetite is poor. Flonase for supportive care. 01/05 on room air repeat CXR tomorrow (+) risk factors for disease progression will start Remdesivir Incentive Spirometry (3) Atrial fibrillation: Plan: chronic atrial fibrillation, rate is controlled. Cont apixaban which he takes chronically. Reports a h/o stroke in the past. Follows with the [facility] in [place]. (4) DMII (diabetes mellitus, type 2): Plan: A1C pending. On metformin as outpatient. -- Lantus , ISS -- BSG 86 (5) CAD (coronary artery disease), [place] coronary artery: Plan: chronic, stable. h/o PCI in 2012. -- Cont medical therapy with ASA, statin, losartan -- hold Aldactone (6) HTN (hypertension): Plan: chronic, at goal. Cont current medical therapy. (7) DVT prophylaxis: Plan: apixaban Full code confirmed with him on admission. Dispo-pending Admission and Anticipated Discharge Date Admission Date: January 04, 2022 Subjective ff up for COVID infection, syncope, etc seen resting in bed, comfortable on room air alert, oriented states he feels improved compared to yesterday ambulating with no dizziness, uses the walker for support has mild cough, non productive, no chest pain, fever/chills, abdominal pain, nausea/vomiting no other symptoms Review of Systems 2 Review of Systems: all noted and negative except for above Physical Exam Physical Exam: General- oriented x 3, not in distress, speaks in sentences with no effort or accessory muscle use Head- atraumatic Eyes- PERRL, EOMI, anicteric ENT- oropharynx clear Neck- supple, no JVD, no adenopathy, no thyromegaly; carotids +2/2, no bruits appreciated Lungs- clear to auscultation bilaterally, no rales/wheezes Heart- normal rate, regular rhythm; no murmur, no gallop, no rub appreciated Abdomen- normal bowel sounds, nondistended, soft, nontender, no masses or hepatosplenomegaly Extremities- no pretibial edema, no calf tenderness; peripheral pulses intact Neuro- alert, oriented x 3; CN 2-12 grossly intact; motor 5/5 bilaterally;sensation 100% on all extremities; no other gross focal neurologic deficits Skin- warm & dry Results & Data Results & Data ([facility]) Vital Signs (Past 12 Hours) Vital Signs Temp Pulse Pulse Resp BP BP Pulse Ox 01/05/22 15:00 75 01/05/22 12:00 36.9 C 86 20 107/76 95 01/05/22 08:19 80 01/05/22 07:42 36.8 C 77 18 112/77 96 01/05/22 06:35 36.7 C 73 20 119/83 95 O2 Del Method 01/05/22 15:00 01/05/22 12:00 Room Air 01/05/22 08:19 01/05/22 07:42 Room Air 01/05/22 06:35 Room Air all noted and reviewed including below
--- NOTE | 2022-01-05 19:54 | Electrocardiogram Report ---
Test Reason : Blood Pressure : / mmHG Vent. Rate : 085 BPM Atrial Rate : 059 BPM P-R Int : 000 ms QRS Dur : 082 ms QT Int : 356 ms P-R-T Axes : 000 067 -06 degrees QTc Int : 423 ms Poor data quality, interpretation may be adversely affected Atrial fibrillation Abnormal QRS-T angle, consider primary T wave abnormality Abnormal ECG When compared with ECG of 17-NOV-2020 19:48, Atrial fibrillation has replaced Sinus rhythm Confirmed by Amol Rosales ([id number]) on 01/05/2022 7:54:44 PM Referred By: REFERRED SELF Confirmed By:Amol Rosales
[2022-01-06] MEDS: SODIUM CHLORIDE 0.9% 1000ML 1,000 ML IV SCH (02:01)
[2022-01-06] MEDS: ASPIRIN 81 MG ECTAB PO SCH (07:22)
[2022-01-06] MEDS: CHOLECALCIFEROL 1,000 UNITS 25 MCG TAB PO SCH (07:22)
[2022-01-06] MEDS: ATORVASTATIN 40 MG TAB PO SCH (07:22)
[2022-01-06] MEDS: FLUTICASONE PROPIONATE NA SPR 16 GM BTL NAE SCH (07:22)
[2022-01-06] MEDS: APIXABAN 5 MG TABLET PO SCH ×2 (07:23→20:50)
[2022-01-06] MEDS: GABAPENTIN 100 MG CAP PO SCH ×2 (07:23→20:50)
[2022-01-06 07:41] LABS: Estimated Average Glucose 120 mg/dl; Hemoglobin A1C 5.8 % (4.5-5.6)
[2022-01-06] MEDS: INSULIN ASPART PER UNIT SC SCH ×4 (07:53→20:50)
--- NOTE | 2022-01-06 10:06 | XRay Report ---
XR chest 1V portable CLINICAL HISTORY: covid infection, r/o pneumonia COMPARISON STUDY: Chest radiograph January 04, 2022. FINDINGS: Lung volumes are normal. Minimal left basilar opacity favors atelectasis. There is no pneum othorax or pleural effusion. Cardiac size is stable. Mediastinal contours are normal. There is no jonah dence for pulmonary edema. IMPRESSION: No acute cardiopulmonary findings. Minimal left basilar opacity which favors atelectasis . ACT 112: Negative or not required by law. Electronically signed by: Ab Soliman M.D. 01/06/2022 10:04 AM
--- NOTE | 2022-01-06 15:40 | Hospitalist Progress Note ---
Date of Service January 06, 2022 Assessment & Plan (1) Syncope and collapse: Plan: Poor PO intake for the past few days 2/2 malaise and upset stomach likely related to covid-19 infection. EKG: no signs of ischemia Telemetry: no arrhythmia management of COVID per below Received IV fluids (2) COVID-19: Plan: Lives in a fpc. Symptom onset was , 01/02. per his report. Generalized malaise. Tolerating PO but appetite is poor. Flonase for supportive care. 01/06 on room air repeat CXR no signs of pneumonia (+) risk factors for disease progression Continue remdesivir day #2 Incentive Spirometry Monitor (3) Atrial fibrillation: Plan: chronic atrial fibrillation, rate is controlled. Cont apixaban which he takes chronically. Reports a h/o stroke in the past. Follows with the [facility] in [place]. (4) DMII (diabetes mellitus, type 2): Plan: A1C pending. On metformin as outpatient. -- Lantus , ISS -- BSG 100 (5) CAD (coronary artery disease), [place] coronary artery: Plan: chronic, stable. h/o PCI in 2012. -- Cont medical therapy with ASA, statin, losartan -- hold Aldactone (6) HTN (hypertension): Plan: chronic, at goal. Cont current medical therapy. (7) DVT prophylaxis: Plan: apixaban Full code confirmed with him on admission. Dispo-pending Admission and Anticipated Discharge Date Admission Date: January 05, 2022 Subjective Follow-up for COVID infection, syncope Etc. Seen sitting up in bed, comfortable, watching TV States he feels fine overall No shortness of breath or cough Denies dizziness, lightheadedness, chest pain, shortness of breath, palpitations Ambulated to the bathroom with no problems No other symptoms Review of Systems Review of Systems: all noted and negative except for above Physical Exam Physical Exam: General- oriented x 2, not in distress, speaks in sentences with no effort or accessory muscle use Eyes- anicteric Neck- no JVD Lungs- clear BS bilaterally, no rales/wheezes Heart- normal rate, regular rhythm; no murmurs Abdomen- normal bowel sounds, nondistended, soft, nontender Extremities- no pretibial edema, no calf tenderness Neuro- alert, oriented x 3; no gross focal neurologic deficits Skin- warm & dry Results & Data Results & Data ([facility]) Vital Signs (Past 12 Hours) Vital Signs Temp Pulse Pulse Resp BP Pulse Ox O2 Del Method 01/06/22 15:24 74 01/06/22 12:00 36.8 C 83 18 123/89 96 Room Air 01/06/22 08:27 Room Air 01/06/22 07:54 36.7 C 81 20 149/91 H 97 Room Air 01/06/22 07:38 64 all noted and reviewed including below
--- NOTE | 2022-01-06 15:59 | Electrocardiogram Report ---
Test Reason : Blood Pressure : / mmHG Vent. Rate : 080 BPM Atrial Rate : 093 BPM P-R Int : 000 ms QRS Dur : 080 ms QT Int : 368 ms P-R-T Axes : 000 065 034 degrees QTc Int : 424 ms Atrial fibrillation Abnormal ECG When compared with ECG of 04-JAN-2022 18:26, No significant change was found Confirmed by Jourdan Olmedo ([id number]) on 01/06/2022 3:58:53 PM Referred By: REFERRED SELF Confirmed By:Jourdan Olmedo
[2022-01-06] MEDS: REMDESIVIR 100 MG in SODIUM CHLORIDE 0.9% 230 ML IV SCH (20:50)
[2022-01-07] MEDS: INSULIN ASPART PER UNIT SC SCH ×2 (08:02→12:07)
[2022-01-07] MEDS: FLUTICASONE PROPIONATE NA SPR 16 GM BTL NAE SCH (08:22)
[2022-01-07] MEDS: GABAPENTIN 100 MG CAP PO SCH (08:22)
[2022-01-07] MEDS: APIXABAN 5 MG TABLET PO SCH (08:23)
[2022-01-07] MEDS: ASPIRIN 81 MG ECTAB PO SCH (08:27)
[2022-01-07] MEDS: ATORVASTATIN 40 MG TAB PO SCH (08:28)
[2022-01-07] MEDS: CHOLECALCIFEROL 1,000 UNITS 25 MCG TAB PO SCH (08:28)
[2022-01-07] MEDS: REMDESIVIR 100 MG in SODIUM CHLORIDE 0.9% 230 ML IV SCH (12:53)
--- NOTE | 2022-01-07 15:43 | Discharge Summary ---
Date of Service January 07, 2022 Admission HPI Per Admitting Provider 71 yo diabetic man presents to the ER following a syncopal episode. He was standing and then passed out without any prodrome symptoms. Clear when he awoke. Denied loss of bladder function. No evidence of tongue biting and this was a witnessed episode by the staff at [place] as it occurred when he was walking out to dinner this evening. Feeling malaise since . Stomach was upset and then he felt hoarse in his voice. No fevers. No chills. No vomiting, diarrhea or abdominal pain. Denies CP or SOB Lives in a correction and reports no one around him was ill that he knows of. He is not vaccinated against covid. Has a cough that is intermittently productive. Denies headache or other issues. Admission Exam Per Admitting Provider CONSTITUTIONAL: [facility], vitals as above, generally NAD EYES: normal conjunctivae, mucous membranes are dry ENT: external ear and nose normal NECK: trachea midline RESPIRATORY: clear to auscultation bilaterally, no crackles, rales or wheezes, normal respiratory effort CARDIOVASCULAR: regular rate and rhythm, S1 and 2 heard without murmurs, gallops or rubs, no JVD, no peripheral edema, CHEST: inspection of chest was normal GASTROINTESTINAL: soft, nontender, nondistended. MUSCULOSKELETAL: strength 5/5 throughout, head is normocephalic and atraumatic, SKIN: warm and dry, NEUROLOGIC: CN 2-12 grossly intact, no sensory deficit, normal cognition, normal speech, no tremor PSYCHIATRIC: alert cooperative and oriented to person, place and time. Euthymic mood, makes good eye contact, language grossly intact, recent and remote memory grossly intact. Principal Diagnosis SYNCOPE SECONDARY TO DEHYDRATION COVID 19 INFECTION Discharge Exam General- oriented x 3, not in distress, speaks in sentences with no effort or accessory muscle use Eyes- anicteric Neck- no JVD Lungs- clear BS bilaterally, no rales/wheezes Heart- normal rate, regular rhythm; no murmurs Abdomen- normal bowel sounds, nondistended, soft, nontender Extremities- no pretibial edema, no calf tenderness Neuro- alert, oriented x 3; no gross focal neurologic deficits Skin- warm & dry Discharge Data Allergies Allergy/AdvReac Type Severity Reaction Status Date / Time bee venom protein (honey bee) Allergy Severe breathing Verified 08/27/22 20:20 problems Consultations 01/04/22 20:12 ED Decision to Admit Stat Ordered Studies 01/04/22 19:25 CT head/brain wo con Stat Hospital Course (1) Syncope and collapse: Poor PO intake for the past few days 2/2 malaise and upset stomach likely related to covid-19 infection. EKG: no signs of ischemia Telemetry: no arrhythmia management of COVID per below Received IV fluids ambulating in the room with no dizziness, problems (2) COVID-19: Lives in a correction. Symptom onset was , 01/02. per his report. Generalized malaise. Tolerating PO but appetite is poor. Flonase for supportive care. 01/07 on room air repeat CXR no signs of pneumonia (+) risk factors for disease progression given remdesivir IV x 3 days needs to isolate x 7 more days continue Incentive Spirometry Monitor (3) Atrial fibrillation: chronic atrial fibrillation, rate is controlled. Cont apixaban which he takes chronically. Reports a h/o stroke in the past. Follows with the [facility] in [place]. (4) DMII (diabetes mellitus, type 2): A1C pending. On metformin as outpatient. -- Lantus , ISS -- BSG 124 (5) CAD (coronary artery disease), [place] coronary artery: chronic, stable. h/o PCI in 2012. -- Cont medical therapy with ASA, statin, losartan -- resume Aldactone (6) HTN (hypertension): - chronic, at goal. - Cont current medical therapy. (7) DVT prophylaxis: apixaban Full code confirmed with him on admission. Dispo- return to [facility] Total Time Total Time Spent Total Time Spent (In Minutes): >30 minutes Discharge Plan Discharge Items Patient Disposition: Home - Self-Care Reason For Visit: SYNCOPE Discharge Diagnosis: SYNCOPE COVID 19 INFECTION Activity: Resume your previous activity Activity Comment: INCREASE GRADUALLY TOLERATED Non-emergency contact: Primary Care Provider Call non-emergency contact if: you have any medication questions, your symptoms worsen, your pain is not controlled, your pain is worsening, your pain is unusual for you, your pain is concerning for you and you have a fever Follow-up/Referrals: PCP,NO [Primary Care Provider] - Diet: Carb Consistent or DM2 and Heart Healthy Addtl Attending Provider Instructions: PLEASE RESUME YOUR USUAL MEDICATIONS. HOLD SPIRONOLACTONE IF PATIENT IS NOT DRINKING OR EATING WELL. YOU STILL NEED TO ISOLATE FOR 7 DAYS. DRINK PLENTY OF FLUIDS. ALWAYS AMBULATE FREQUENTLY. CONTINUE INCENTIVE SPIROMETRY EVERY 4 HOURS AT HOME. PLEASE CALL YOUR PRIMARY CARE PHYSICIAN OR RETURN TO THE ER IF WITH WORSENING OF SYMPTOMS, INCLUDING cough, shortness of breath, fever/chills, chest pain, leg pain/swelling. FOLLOW UP WITH PRIMARY CARE PHYSICIAN IN 1 WEEK. Home Isolation COVID-19 Instructions The following information about Home Isolation is from the CDC Website: https://www.cdc.gov/coronavirus/2019-ncov/hcp/ajergoep-aufxpak-uivdrc.html Stay home except to get medical care People who are mildly ill with COVID-19 are able to isolate at home during their illness. You should restrict activities outside your home, except for getting medical care. Do not go to work, school, or public areas. Avoid using public transportation, ride-sharing, or taxis. Separate yourself from other people and animals in your home People: As much as possible, you should stay in a specific room and away from other people in your home. Also, you should use a separate bathroom, if available. Animals: You should restrict contact with pets and other animals while you are sick with COVID-19, just like you would around other people. Although there have not been reports of pets or other animals becoming sick with COVID-19, it is still recommended that people sick with COVID-19 limit contact with animals until more information is known about the virus. When possible, have another member of your household care for your animals while you are sick. If you are sick with COVID-19, avoid contact with your pet, including petting, snuggling, being kissed or licked, and sharing food. If you must care for your pet or be around animals while you are sick, wash your hands before and after you interact with pets and wear a face mask. Call ahead before visiting your doctor If you have a medical appointment, call the healthcare provider and tell them that you have or may have COVID-19. This will help the healthcare providers office take steps to keep other people from getting infected or exposed. Wear a face mask You should wear a face mask when you are around other people (e.g., sharing a room or vehicle) or pets and before you enter a healthcare providers office. If you are not able to wear a face mask (for example, because it causes trouble breathing), then people who live with you should not stay in the same room with you, or they should wear a face mask if they enter your room. Cover your coughs and sneezes Cover your mouth and nose with a tissue when you cough or sneeze. Throw used tissues in a lined trash can. Immediately wash your hands with soap and water for at least 20 seconds or, if soap and water are not available, clean your hands with an alcohol-based hand permaculture contractor that contains at least 60% alcohol. Clean your hands often Wash your hands often with soap and water for at least 20 seconds, especially after blowing your nose, coughing, or sneezing; going to the bathroom; and before eating or preparing food. If soap and water are not readily available, use an alcohol-based hand permaculture contractor with at least 60% alcohol, covering all surfaces of your hands and rubbing them together until they feel dry. Soap and water are the best option if hands are visibly dirty. Avoid touching your eyes, nose, and mouth with unwashed hands. Avoid sharing personal household items You should not share dishes, drinking glasses, cups, eating utensils, towels, or bedding with other people or pets in your home. After using these items, they should be washed thoroughly with soap and water. Clean all high-touch surfaces everyday High touch surfaces include counters, tabletops, doorknobs, bathroom fixtures, toilets, phones, keyboards, tablets, and bedside tables. Also, clean any surfaces that may have blood, stool, or body fluids on them. Use a household cleaning spray or wipe, according to the label instructions. Labels contain instructions for safe and effective use of the cleaning product including precautions you should take when applying the product, such as wearing gloves and making sure you have good ventilation during use of the product. Monitor your symptoms Seek prompt medical attention if your illness is worsening (e.g., difficulty breathing).Beforeseeking care, call your healthcare provider and tell them that you have, or are being evaluated for, COVID-19. Put on a face mask before you enter the facility. These steps will help the healthcare providers office to keep other people in the office or waiting room from getting infected or exposed. Ask your healthcare provider to call the local or state health department. Persons who are placed under active monitoring or facilitated self- monitoring should follow instructions provided by their local health department or occupational health professionals, as appropriate. When working with your local health department check their available hours. If you have a medical emergency and need to call 911, notify the dispatch personnel that you have, or are being evaluated for COVID-19. If possible, put on a face mask before emergency medical services arrive. Discontinuing home isolation Patients with confirmed COVID-19 should remain under home isolation precautions until the risk of secondary transmission to others is thought to be low. The decision to discontinue home isolation precautions should be made on a [id number] basis, in consultation with healthcare providers and formerly [facility] and [facility] health departments. Pending Studies at Discharge: No Stand-Alone Forms: [facility], Smoking Cessation Medications and DC Order Prescriptions: Continued apixaban 5 mg Tablet 5 mg PO BID aspirin 81 mg Tablet,Delayed Release (Dr/Ec) 81 mg PO DAILY atorvastatin 80 mg Tablet 80 mg PO DAILY cholecalciferol (vitamin D3) 25 mcg (1,000 unit) Tablet 25 mcg PO DAILY epinephrine [EpiPen] 0.3 mg/0.3 mL Auto-Injector 0.3 mg IM .PRN/UD gabapentin 100 mg Capsule 100 mg PO BID metformin 500 mg Tablet 500 mg PO BIDM multivitamin [Multiple Vitamin] Tablet 1 tab PO DAILY spironolactone 50 mg Tablet 50 mg PO DAILY losartan 50 mg Tablet 50 mg PO DAILY Discharge Orders: Discharge Order (Routine); Ordered 01/07/22 Ordered By: Soren Kennedy Admission Data Admit Date/Time: 01/05/22 17:57 Attending Provider: Soren Kennedy Admit Provider: Christie Carrion Primary Care Provider: PCP,NO Other Providers: Christie Carrion ; [facility]
== END 2022-01-07 18:32 | disposition home or self-care (01) | DRG 178 ==
LOC: ED 17:51 → 2W 17:51

== ENCOUNTER 2023-01-13 15:14 | Inpatient (IN) ==
--- NOTE | 2023-01-13 15:51 | Emergency Department Note ---
Impression & Plan Absence seizure, Acute confusion ED Provider Note NAME: KALEB ANDINO AGE: 72 SEX: M : 1950 ARRIVES VIA: Walk-In INFORMANT: Patient, brother ED PROVIDER(S): Carlota Ball MD CHIEF COMPLAINT: Confusion HPI: This is a 72-year-old male with history of hypertension, CAD, atrial fibrillation, syncope, DKA in the past presenting for confusion. Patient states that he is unsure why he is here. He does not know what happened or why he is in the emergency department. Upon check in triage summary does not by nurse, states that he was here previously for confusion per family. Family states that it was the second time this is happened, for some about 6 weeks ago and happened again today. Reported the patient collapsed onto his knees and was answering questions. At this time patient is alert, oriented to person place and time. He is slow to respond. He does not show medications. Is not sure where he lives exactly. Denies any current shortness of breath, fever, chills, nausea or vomiting. No headache. No vision changes, or strength deficits. ROS: See above HPI for pertinent positives & negatives. A total of 10 systems reviewed and were otherwise negative. PAST MEDICAL HISTORY: See Below PAST SURGICAL HISTORY: See Below FAMILY HISTORY: See Below SOCIAL HISTORY: See Below HOME MEDICATIONS: See Below ALLERGIES: See Below VITALS: See Below PHYSICAL EXAMINATION: General: resting comfortably in no acute distress Head: Normocephalic and atraumatic Eyes: Normal inspection, extraocular muscles intact, no conjunctival pallor Ear, nose, throat: Normal external exam Neck: Normal range of motion Respiratory: Patient is in no respiratory distress, lungs clear to auscultation bilaterally Cardiovascular: RRR without murmur appreciated GI: soft, nontender, no guarding or rebound Extremities: pulses intact with good cap refills, no LE pitting edema or calf tenderness Neuro: Alert oriented to person and place, slow to respond,no focal decifits Skin: Warm, dry, and intact MEDICAL DECISION MAKING: This is a 72-year-old male with history of hypertension, CAD, atrial fibrillation, syncope, DKA presenting for confusion. Unclear etiology as patient has no idea why he is in the ER what happened today. Triage note is reviewed for when family was here and gave history. We will start with CT head, basic blood work, COVID-19, EKG and troponin. Discussed with patient's brother who was with him all day. They were out doing chores for 3 hours. He was doing well until they got back home and noticed that the patient was seen standing still, not responding to any stimuli. They then noticed he was collapsing and bending his knees. He gone to his knees and stayed upright. He had heavy breathing. He was nonresponding to questioning at this time and staring forward. Eyes open. Eventually after few minutes patient was able to answer questions but was confused. He was not able to answer where he was what year was. Brother states that this then resolved upon arrival to ER. This happened previously and was admitted for this. Based on patient's history by brother, more concern for absence seizure versus possible syncope. Low concern for syncope as patient had no full loss of consciousness. Will admit to hospitalist for EEG/further work-up Triage Nursing notes reviewed. Prior medical records reviewed showing DKA admission admission for syncope previously Vital Signs: reviewed and remarkable for no significant abnormalities Differential diagnosis: Stroke, syncope, UTI, seizure ER treatment provided: See below Diagnostics interpreted by me: ECG: EKG read me showing atrial fibrillation at a rate of 80, QRS 80, QTc [address] segment elevation consistent with STEMI Laboratory studies: As stated above and show below. Imaging studies: See below. 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 Required: No Beliefs That Will Affect Care: None marital status: Single Current Living Situation: Boarding Home Feels Safe at Home: Yes Assistive Devices: None Allergies Allergies Allergy/AdvReac Type Severity Reaction Status Date / Time bee venom protein (honey bee) Allergy Severe breathing Verified 01/13/23 16:51 problems Home Meds Home Medications Medication Instructions Recorded Confirmed apixaban 5 mg tablet 5 mg PO BID 11/17/20 01/13/23 aspirin 81 mg tablet,delayed 81 mg PO DAILY 11/17/20 01/13/23 release atorvastatin 80 mg tablet 80 mg PO DAILY 11/17/20 01/13/23 cholecalciferol (vitamin D3) 25 25 mcg PO DAILY 11/17/20 01/13/23 mcg (1,000 unit) tablet epinephrine 0.3 mg/0.3 mL 0.3 mg IM DIRECTED PRN Allergic 11/17/20 01/13/23 injection, auto-injector (EpiPen) Reaction gabapentin 100 mg capsule 100 mg PO BID 11/17/20 01/13/23 metformin 500 mg tablet 500 mg PO QAM 11/17/20 01/13/23 spironolactone 50 mg tablet 50 mg PO DAILY 11/17/20 01/13/23 losartan 50 mg tablet 50 mg PO DAILY 01/04/22 01/13/23 acetaminophen 325 mg tablet 650 mg PO Q6H PRN PAIN/FEVER 01/13/23 01/13/23 (Tylenol) levothyroxine 25 mcg tablet 25 mcg PO DAILY 01/13/23 01/13/23 metoprolol succinate 50 mg 25 mg PO DAILY 01/13/23 01/13/23 tablet,extended release 24 hr Results & Data (ED) Vital Signs Vital Signs - 24 hr 01/13/23 15:20 01/13/23 15:44 01/13/23 15:46 Temperature 36.4 C L 36.7 C Temperature Source Temporal Artery Scan Oral Pulse Rate 99 H 80 Pulse Rate [Apical] 86 Respiratory Rate 18 23 Respiratory Effort / Characteristics Non-Labored Non-Labored Spontaneous Respiratory Depth Normal Normal Respiratory Pattern Regular Blood Pressure 114/73 Blood Pressure [Right Arm] 116/82 Blood Pressure Mean 86 Blood Pressure Mean [Right Arm] 93 Blood Pressure Position Sitting Blood Pressure Position [Right Arm] Semi-fowlers Pulse Oximetry 96 96 Oxygen Delivery Method Room Air Room Air Sepsis Recent Fever Within 48 Hours No Sepsis New/Unexplained Change in Mental Status No Sepsis Action Taken by Nursing No Action Required 01/13/23 16:24 01/13/23 17:42 Temperature Temperature Source Pulse Rate Pulse Rate [Apical] 75 Respiratory Rate 14 Respiratory Effort / Characteristics Respiratory Depth Respiratory Pattern Blood Pressure Blood Pressure [Right Arm] 132/88 Blood Pressure Mean Blood Pressure Mean [Right Arm] 102 Blood Pressure Position Blood Pressure Position [Right Arm] Semi-fowlers Pulse Oximetry 98 97 Oxygen Delivery Method Room Air Room Air Sepsis Recent Fever Within 48 Hours Sepsis New/Unexplained Change in Mental Status Sepsis Action Taken by Nursing Laboratory Data 01/13/23 15:52 01/13/23 15:52 Lab Results 01/13/23 01/13/23 01/13/23 Range/Units 15:29 15:52 15:52 WBC 8.36 (4.8-10.8) K/ul RBC 4.91 (4.70-6.10) M/uL Hgb 14.6 (14.0-18.0) g/dl Hct 44.9 (42.0-52.0) % MCV 91.4 (80.0-100.0) fL MCH 29.7 (25.0-34.0) pg MCHC 32.5 (32.0-36.0) g/dL RDW Std Deviation 44.6 (36.4-46.3) fL RDW Coeff of Khadra 13.2 (11.5-14.5) % Plt Count 257 (130-400) K/uL MPV 9.5 (9.4-12.4) fL Immature Gran % (Auto) 0.2 % Neut % (Auto) 72.3 % Lymph % (Auto) 13.2 % Delta % (Auto) 12.4 % Eos % (Auto) 1.2 % Baso % (Auto) 0.7 % Neut # (Auto) 6.04 (1.40-6.50) K/uL Lymph # (Auto) 1.10 L (1.20-3.40) K/uL Delta # (Auto) 1.04 H (0.11-0.59) K/uL Eos # (Auto) 0.10 (0.00-0.50) K/uL Baso # (Auto) 0.06 (0.00-0.20) K/uL Immature Gran # (Auto) 0.02 (0.01-0.20) K/uL VBG pH (7.36-7.41) VBG pCO2 (38-50) mmHg VBG pO2 mmHg VBG HCO3 mmol/L VBG O2 Saturation % VBG Base Excess mEq/L Sodium 136 (136-145) mmol/L Potassium 4.6 (3.5-5.1) mmol/L Chloride 106 (98-107) mmol/L Carbon Dioxide 24 (21-32) mmol/L Anion Gap 6 (3-11) BUN 43 H (6-23) mg/dl Creatinine 1.62 H (0.6-1.4) mg/dl Est Cr Clr Drug Dosing 47.2 ml/min Est GFR ( Amer) 48.4 ml/min Est GFR (Non-Af Amer) 41.8 ml/min BUN/Creatinine Ratio 26.5 H (10-20) Glucose 103 H (70-99(Fasting)) mg/dl POC Glucose 109 H (70-99) mg/dl Calcium 9.3 (8.6-10.3) mg/dl Troponin I High Sens 3.3 (0-20) pg/ml Urine Color Urine Appearance (Clear) Urine pH (4.5-7.5) Ur Specific [place] (1.000-1.030) Urine Protein (Negative) Urine Glucose (UA) (Negative) Urine Ketones (Negative) Urine Blood (Negative) Urine Nitrite (Negative) Urine Bilirubin (Negative) Urine Urobilinogen (Negative) Ur Leukocyte Esterase (Negative) SARS-CoV-2 (PCR) (Negative) Influenza Type A (PCR) (Neg) Influenza Type B (PCR) (Neg) RSV (RT-PCR) (Neg) 01/13/23 01/13/23 01/13/23 Range/Units 15:52 16:22 17:47 WBC (4.8-10.8) K/ul RBC (4.70-6.10) M/uL Hgb (14.0-18.0) g/dl Hct (42.0-52.0) % MCV (80.0-100.0) fL MCH (25.0-34.0) pg MCHC (32.0-36.0) g/dL RDW Std Deviation (36.4-46.3) fL RDW Coeff of Khadra (11.5-14.5) % Plt Count (130-400) K/uL MPV (9.4-12.4) fL Immature Gran % (Auto) % Neut % (Auto) % Lymph % (Auto) % Delta % (Auto) % Eos % (Auto) % Baso % (Auto) % Neut # (Auto) (1.40-6.50) K/uL Lymph # (Auto) (1.20-3.40) K/uL Delta # (Auto) (0.11-0.59) K/uL Eos # (Auto) (0.00-0.50) K/uL Baso # (Auto) (0.00-0.20) K/uL Immature Gran # (Auto) (0.01-0.20) K/uL VBG pH 7.38 (7.36-7.41) VBG pCO2 38 (38-50) mmHg VBG pO2 61 mmHg VBG HCO3 23 mmol/L VBG O2 Saturation 88.1 % VBG Base Excess -2.3 mEq/L Sodium (136-145) mmol/L Potassium (3.5-5.1) mmol/L Chloride (98-107) mmol/L Carbon Dioxide (21-32) mmol/L Anion Gap (3-11) BUN (6-23) mg/dl Creatinine (0.6-1.4) mg/dl Est Cr Clr Drug Dosing ml/min Est GFR ( Amer) ml/min Est GFR (Non-Af Amer) ml/min BUN/Creatinine Ratio (10-20) Glucose (70-99(Fasting)) mg/dl POC Glucose (70-99) mg/dl Calcium (8.6-10.3) mg/dl Troponin I High Sens (0-20) pg/ml Urine Color Yellow Urine Appearance Clear (Clear) Urine pH 5.5 (4.5-7.5) Ur Specific [place] 1.015 (1.000-1.030) Urine Protein Negative (Negative) Urine Glucose (UA) Negative (Negative) Urine Ketones Negative (Negative) Urine Blood Negative (Negative) Urine Nitrite Negative (Negative) Urine Bilirubin Negative (Negative) Urine Urobilinogen Negative (Negative) Ur Leukocyte Esterase Negative (Negative) SARS-CoV-2 (PCR) NEGATIVE (Negative) Influenza Type A (PCR) Negative (Neg) Influenza Type B (PCR) Negative (Neg) RSV (RT-PCR) Negative (Neg) Imaging Data Radiologist's Impression: Head CT 01/13/23 15:[address] DOSE: 547.75 mGy.cm HISTORY: Altered mental status. TECHNIQUE: Multiaxial CT images of the head were performed without the use of intravenous contrast. Automated exposure control was utilized for this study. A dose lowering technique was utilized adhering to the principles of ALARA. Comparison: Head CT 01/04/2022. Findings: The paranasal sinuses and mastoid air cells are clear. The calvarium and skull base are intact. There is no mass, hematoma, midline shift, acute infarct. White matter hypodensity is nonspecific but suggestive of microvascular ischemic change. The ventricles and sulci demonstrate mild age-related involutional changes. Impression: No significant change compared to the prior study. No acute intracranial abnormality. ACT 112: Negative or not required by law. Electronically signed by: Alfonzo Chacko M.D. 01/13/2023 4:23 PM Discharge Plan Visit Data Chief Complaint: Confusion Stated Complaint: AMS,CONFUSION,2ND "SPELL" ED Provider: Carlota Ball Discharge Problem: Absence seizure, Acute confusion Forms Stand Alone Forms: My [facility] [place] [employer] Prescriptions Prescriptions: No Action apixaban 5 mg Tablet 5 mg PO BID aspirin 81 mg Tablet,Delayed Release (Dr/Ec) 81 mg PO DAILY atorvastatin 80 mg Tablet 80 mg PO DAILY cholecalciferol (vitamin D3) 25 mcg (1,000 unit) Tablet 25 mcg PO DAILY epinephrine [EpiPen] 0.3 mg/0.3 mL Auto-Injector 0.3 mg IM DIRECTED PRN (Reason: Allergic Reaction) gabapentin 100 mg Capsule 100 mg PO BID metformin 500 mg Tablet 500 mg PO QAM spironolactone 50 mg Tablet 50 mg PO DAILY losartan 50 mg Tablet 50 mg PO DAILY acetaminophen [Tylenol] 325 mg Tablet 650 mg PO Q6H PRN (Reason: PAIN/FEVER) metoprolol succinate 50 mg Tablet Extended Release 24 Hr 25 mg PO DAILY levothyroxine 25 mcg Tablet 25 mcg PO DAILY Referrals Referrals: PCP,NO [Primary Care Provider] -
[2023-01-13 16:11] LABS: Basophils # (auto) 0.06 K/uL (0.00-0.20); Basophils % (auto) 0.7 %; Eosinophils % (auto) 1.2 %; Hematocrit (blood only) 44.9 % (42.0-52.0); Hemoglobin 14.6 g/dl (14.0-18.0); Immature Granulocytes # (auto) 0.02 K/uL (0.01-0.20); Immature Granulocytes % (auto) 0.2 %; Lymphocytes % (auto) 13.2 %; Mean Corpuscular Hemoglobin 29.7 pg (25.0-34.0); Mean Corpuscular Hgb Conc 32.5 g/dL (32.0-36.0); Mean Corpuscular Volume 91.4 fL (80.0-100.0); Mean Platelet Volume 9.5 fL (9.4-12.4); Monocytes # (auto) 1.04 K/uL (0.11-0.59); Monocytes % (auto) 12.4 %; Neutrophils # (auto) 6.04 K/uL (1.40-6.50); Neutrophils % (auto) 72.3 %; Platelet Count 257 K/uL (130-400); RDW Coefficient of Variation 13.2 % (11.5-14.5); RDW Standard Deviation 44.6 fL (36.4-46.3); Red Blood Count 4.91 M/uL (4.70-6.10); White Blood Count 8.36 K/ul (4.8-10.8)
--- NOTE | 2023-01-13 16:24 | CT Scan Report ---
HEAD CT NONCONTRAST CT DOSE: 547.75 mGy.cm HISTORY: Altered mental status. TECHNIQUE: Multiaxial CT images of the head were performed without the use of intravenous contrast. A utomated exposure control was utilized for this study. A dose lowering technique was utilized adheri ng to the principles of ALARA. Comparison: Head CT 01/04/2022. Findings: The paranasal sinuses and mastoid air cells are clear. The calvarium and skull base are int act. There is no mass, hematoma, midline shift, acute infarct. White matter hypodensity is nonspecifi c but suggestive of microvascular ischemic change. The ventricles and sulci demonstrate mild age-rela felipa involutional changes. Impression: No significant change compared to the prior study. No acute intracranial abnormality. ACT 112: Negative or not required by law. Electronically signed by: Alfonzo Chacko M.D. 01/13/2023 4:23 PM
[2023-01-13 16:38] LABS: Base Excess VBG -2.3 mEq/L; HCO3 VBG 23 mmol/L; Oxygen Saturation VBG 88.1 %; PCO2 VBG 38 mmHg (38-50); PO2 VBG 61 mmHg; pH VBG 7.38 (7.36-7.41)
[2023-01-13 16:41] LABS: BUN Creatinine Ratio 26.5 (10-20); Calcium 9.3 mg/dl (8.6-10.3); Creatinine Clr Calc Pharmacy 47.2 ml/min; Est GFR (African American) 48.4 ml/min; Est GFR (Non-African American) 41.8 ml/min; Potassium 4.6 mmol/L (3.5-5.1)
[2023-01-13 17:02] LABS: Influenza A virus by PCR Negative (Neg); Influenza B virus by PCR Negative (Neg); RSV by PCR Negative (Neg); SARS CoV2 RNA(COVID-19) Ceph NEGATIVE (Negative)
[2023-01-13 18:00] LABS: Appearance Urine Clear (Clear); Bilirubin Urine Negative (Negative); Blood Urine Negative (Negative); Color Urine Yellow; Glucose Urine UA Negative (Negative); Ketones Urine Negative (Negative); Leukocyte Esterase Urine Negative (Negative); Nitrite Urine Negative (Negative); Protein Urine Negative (Negative); Specific Gravity Urine 1.015 (1.000-1.030); Urobilinogen Urine Negative (Negative); pH Urine 5.5 (4.5-7.5)
[2023-01-13 18:21] LABS: Troponin I High Sensitivity 3.3 pg/ml (0-20)
--- NOTE | 2023-01-13 18:27 | History & Physical Report ---
Date of Service January 13, 2023 Assessment & Plan (1) Acute confusion: Plan: This is a 72 y/o male with a history of DM2, atrial fibrillation, CAD, HTN, and prior CVA who presented to the today after he became transiently unresponsive with residual confusion this afternoon. Similar symptoms previously a year ago that were attributed to dehydration from recent illness. However, pt denies any illness preceding current episode. He does note a significant change in his diet a few weeks ago so it may be that he had an episode of hypoglycemia causing his confusion. I do not have a glucose available from EMS. While less likely, he may have had an absence seizure and would have low threshold for EEG and possible neurology evaluation. - Observe on med telemetry overnight - Monitor for hypoglycemia - hold Metformin, use insulin sliding scale, check A1c in AM - Will give IVF overnight for CIARA/dehydration - Repeat labs in AM - CBC, BMP - Hold spirnolactone for now due to CIARA/dehydration (2) Dehydration: (3) CIARA (acute kidney injury): (4) DMII (diabetes mellitus, type 2): (5) Atrial fibrillation: (6) CAD (coronary artery disease), [place] coronary artery: (7) HTN (hypertension): Plan Continue other home medications as appropriate. Pt seen and reviewed with collaborating physician, Dr. Juan. Plan of care discussed and as outlined above Code Status: Full code DVT Prophylaxis: on apixaban Adiel Cuenca PA-C History of Present Illness Chief Complaint: episode of confusion Primary Care Provider: NO PCP This is a 72 y/o male with a history of DM2, atrial fibrillation, CAD, HTN, and prior CVA who presented to the today after he became transiently unresponsive with residual confusion this afternoon. History from patient is limited as he has no recollection of the event so his brother provided an account of the events. Pt and his brother were apparently together all day, running several errands then came home. They were outside at home for a few hours when pt started to stare at nothing, slid to his knees, and become unresponsive though never appeared to lose consciousness. This lasted a few minutes before he started to respond but his brother noted that he was confused and unable to answer basic questions so he called EMS who brought pt to the ED. Initially in the ED, he remained slow to answer questions but his mental status has gradually improved since arrival. Currently, pt reports that he is back to his baseline and he is questioning the need for admission. He denies recent illness. He does report changing his diet a few weeks ago to use supplements like Ensure which he often substitutes for breakfast and sometimes lunch. He thinks that he may have missed lunch today. He denies chest pain, dyspnea, palpitations, lightheadedness or issues with bowel movements or urination. No issues ambulating or feeling more weak on one side. Uses diabetic shoes but no cane or walker. He reports living in a [facility] setting and states that they manage his medications so he is unsure what he's taking. Does not routinely check his blood sugars. He reports a similar episode of symptoms last year when he was admitted. However, these symptoms were attributed to dehydration from recent illness. Allergies Allergy/AdvReac Type Severity Reaction Status Date / Time bee venom protein (honey bee) Allergy Severe breathing Verified 01/13/23 16:51 problems Home Medications Medication Instructions Recorded Confirmed Type apixaban 5 mg tablet 5 mg PO BID 11/17/20 01/13/23 History aspirin 81 mg tablet,delayed 81 mg PO DAILY 11/17/20 01/13/23 History release atorvastatin 80 mg tablet 80 mg PO DAILY 11/17/20 01/13/23 History cholecalciferol (vitamin D3) 25 25 mcg PO DAILY 11/17/20 01/13/23 History mcg (1,000 unit) tablet epinephrine 0.3 mg/0.3 mL 0.3 mg IM DIRECTED PRN Allergic 11/17/20 01/13/23 History injection, auto-injector (EpiPen) Reaction gabapentin 100 mg capsule 100 mg PO BID 11/17/20 01/13/23 History metformin 500 mg tablet 500 mg PO QAM 11/17/20 01/13/23 History spironolactone 50 mg tablet 50 mg PO DAILY 11/17/20 01/13/23 History losartan 50 mg tablet 50 mg PO DAILY 01/04/22 01/13/23 History acetaminophen 325 mg tablet 650 mg PO Q6H PRN PAIN/FEVER 01/13/23 01/13/23 History (Tylenol) levothyroxine 25 mcg tablet 25 mcg PO DAILY 01/13/23 01/13/23 History metoprolol succinate 50 mg 25 mg PO DAILY 01/13/23 01/13/23 History tablet,extended release 24 hr Past Med/Surg History Medical History (Updated 01/13/23 @ 21:07 by Rebecca Cuenca PA-C) Cor athrscl-uns vessel (01/30/13) COVID-19 DKA (diabetic ketoacidoses) DMII (diabetes mellitus, type 2) HTN (hypertension) Stroke Surgical History History of coronary artery stent placement (01/30/13) Family History Mother Heart disease Father Heart disease Other No pertinent family history Social History Smoking Status: Never smoker Hx Alcohol Use: No Hx Substance Use: No Preferred Language: Kiswahili Communication Ability: Effective Meatcutter Required: No Beliefs That Will Affect Care: None marital status: Single Current Living Situation: Other Current Living Situation Comment: [facility] Other Information That Helps Us Care for You: No Feels Safe at Home: Yes Safety Concerns: Feels Safe At This Time Assistive Devices: Glasses Review of Systems Review of Systems: All systems reviewed & are unremarkable except as noted in HPI & below Constitutional: no fever and no chills Eyes: no diplopia Respiratory: no cough and no dyspnea Cardiovascular: no chest pain, no palpitations and no edema Gastrointestinal: no abdominal pain, no nausea, no vomiting and no diarrhea/loose stools Genitourinary: no dysuria or no urinary frequency Musculoskeletal: no back pain and no neck pain Integumentary: no yellowing of the skin Neurologic: as per Subjective / HPI Physical Exam Constitutional: well developed and well nourished; no acute distress Eyes: PERRL, conjunctivae normal, anicteric sclerae ENMT: external ear and nose normal, oropharynx normal Neck: trachea midline Respiratory: no respiratory distress and no labored breathing Auscultation: lungs clear to auscultation bilaterally; no rales, no rhonchi and no wheezes Cardiovascular: Rate/Rhythm: + irregularly irregular Vessels: posterior tibial pulses present and radial pulses present Extremities: no pedal edema Gastrointestinal (Abdomen): Inspection/Auscultation: normal bowel sounds; abdomen not distended Percussion/Palpation: abdomen soft; abdomen nontender Musculoskeletal: Head/Neck/Chest: normocephalic, head atraumatic and neck supple Skin: no jaundice Neurologic: moves all extremities; no focal motor deficits Speech / Cognition: normal speech Motor/Sensory: no tremor and no pronator drift Cranial Nerves: PERRL, EOM intact bilaterally, tongue midline and able to rotate head bilaterally Psychiatric: A+Ox3, euthymic affect Results & Data Results & Data Vital Signs (Past 12 Hours) Vital Signs Temp Pulse Pulse Resp BP BP Pulse Ox 01/13/23 17:42 75 14 132/88 97 01/13/23 16:24 98 01/13/23 15:46 80 01/13/23 15:44 36.7 C 86 23 116/82 96 01/13/23 15:20 36.4 C L 99 H 18 114/73 96 O2 Del Method 01/13/23 17:42 Room Air 01/13/23 16:24 Room Air 01/13/23 15:46 01/13/23 15:44 Room Air 01/13/23 15:20 Room Air Laboratory Results Laboratory Results - last 24 hr 01/13/23 01/13/23 01/13/23 15:29 15:52 15:52 WBC 8.36 RBC 4.91 Hgb 14.6 Hct 44.9 MCV 91.4 MCH 29.7 MCHC 32.5 RDW Std Deviation 44.6 RDW Coeff of Khadra 13.2 Plt Count 257 MPV 9.5 Immature Gran % (Auto) 0.2 Neut % (Auto) 72.3 Lymph % (Auto) 13.2 [place] % (Auto) 12.4 Eos % (Auto) 1.2 Baso % (Auto) 0.7 Neut # (Auto) 6.04 Lymph # (Auto) 1.10 L [place] # (Auto) 1.04 H Eos # (Auto) 0.10 Baso # (Auto) 0.06 Immature Gran # (Auto) 0.02 VBG pH VBG pCO2 VBG pO2 VBG HCO3 VBG O2 Saturation VBG Base Excess Sodium 136 Potassium 4.6 Chloride 106 Carbon Dioxide 24 Anion Gap 6 BUN 43 H Creatinine 1.62 H Est Cr Clr Drug Dosing 47.2 Est GFR ( Amer) 48.4 Est GFR (Non-Af Amer) 41.8 BUN/Creatinine Ratio 26.5 H Glucose 103 H POC Glucose 109 H Calcium 9.3 Troponin I High Sens 3.3 Urine Color Urine Appearance Urine pH Ur Specific [place] Urine Protein Urine Glucose (UA) Urine Ketones Urine Blood Urine Nitrite Urine Bilirubin Urine Urobilinogen Ur Leukocyte Esterase SARS-CoV-2 (PCR) Influenza Type A (PCR) Influenza Type B (PCR) RSV (RT-PCR) 01/13/23 01/13/23 01/13/23 15:52 16:22 17:47 WBC RBC Hgb Hct MCV MCH MCHC RDW Std Deviation RDW Coeff of Khadra Plt Count MPV Immature Gran % (Auto) Neut % (Auto) Lymph % (Auto) [place] % (Auto) Eos % (Auto) Baso % (Auto) Neut # (Auto) Lymph # (Auto) [place] # (Auto) Eos # (Auto) Baso # (Auto) Immature Gran # (Auto) VBG pH 7.38 VBG pCO2 38 VBG pO2 61 VBG HCO3 23 VBG O2 Saturation 88.1 VBG Base Excess -2.3 Sodium Potassium Chloride Carbon Dioxide Anion Gap BUN Creatinine Est Cr Clr Drug Dosing Est GFR ( Amer) Est GFR (Non-Af Amer) BUN/Creatinine Ratio Glucose POC Glucose Calcium Troponin I High Sens Urine Color Yellow Urine Appearance Clear Urine pH 5.5 Ur Specific [place] 1.015 Urine Protein Negative Urine Glucose (UA) Negative Urine Ketones Negative Urine Blood Negative Urine Nitrite Negative Urine Bilirubin Negative Urine Urobilinogen Negative Ur Leukocyte Esterase Negative SARS-CoV-2 (PCR) NEGATIVE Influenza Type A (PCR) Negative Influenza Type B (PCR) Negative RSV (RT-PCR) Negative Diagnostic Findings Head CT 01/13/23 15:[address] DOSE: 547.75 mGy.cm HISTORY: Altered mental status. TECHNIQUE: Multiaxial CT images of the head were performed without the use of intravenous contrast. Automated exposure control was utilized for this study. A dose lowering technique was utilized adhering to the principles of ALARA. Comparison: Head CT 01/04/2022. Findings: The paranasal sinuses and mastoid air cells are clear. The calvarium and skull base are intact. There is no mass, hematoma, midline shift, acute infarct. White matter hypodensity is nonspecific but suggestive of microvascular ischemic change. The ventricles and sulci demonstrate mild age-related involutional changes. Impression: No significant change compared to the prior study. No acute intracranial abnormality. ACT 112: Negative or not required by law. Electronically signed by: Alfonzo Chacko M.D. 01/13/2023 4:23 PM Supervising Physician Co-Signing Physician Notes I have seen and discussed the case with the collaborating RANJANA. I agree with the above H&P. I have reviewed and confirmed the patients medical history, the findings on physical examination, and the patients diagnosis and treatment plan with Joellen CHILEL and agree with the information documented. Mr. Mi is a 72 year old gentleman with history of atrial fibrillation, CAD, DMTII, and HTN who is admitted due to episode of altered mental status. Patient reportedly was at baseline this afternoon with his brother, when he stopped, slumped down, and was seemingly awake--but unresponsive. This episode resolved in minutes, but there was notable delay in return of mentation. Upon arrival to ED, labs were failure unremarkable. Patient states he can recall with some difficulty the events prior to the event, but does not recall being down or how he made it to the ED. He denied history of seizures and mentions he thinks he has experienced a similar episode before-but cannot recall. He denies any other acute symptoms. When discuss his nutrition and DMTII, he isn't sure what he takes, but he notes that his intake has decreased drastically as he is concerned with the meals at his living facility. He now drinks an ensure drink for breakfast and lunch. He stat es that he only recalls drinking an ensure this morning and denies eating lunch with his brother. Labs revealed CIARA to 1.6. Glucose of 90s. Negative troponin. CT imaging without signs of stroke or mass lesion. No recent history of etoh, ilicits. No recent illness. Exam without focal neurologic deficit and strength intact. Plan to admit and monitor on tele. Symptoms questionable for hypoglycemic episode given post-event confusion, but less suspicious of new onset seizure activity given no mass lesion or prior recorded events. Consider neuro evaluation. Follow BMP for renal function.
[2023-01-13] MEDS ORDERED: ACETAMINOPHEN 325 MG TAB PO PRN (20:21)
[2023-01-13] MEDS ORDERED: GLUCOSE 40% GEL 15 GM TUBE PO PRN (21:10)
[2023-01-13] MEDS ORDERED: GLUCOSE 10 TAB/TUBE PO PRN (21:10)
[2023-01-13] MEDS ORDERED: CARBOHYDRATES FOR HYPOGLYCEMIA PO PRN (21:10)
[2023-01-13] MEDS ORDERED: DEXTROSE 50% 50 ML SYRINGE IV PRN (21:10)
[2023-01-13] MEDS ORDERED: GLUCAGON FOR INJ 1 MG VIAL SQ PRN (21:10)
[2023-01-13] MEDS ORDERED: PNEUMOCOCCAL POLYSACCHARIDES 25 MCG/0.5 ML VIAL/SYR IM ONE (22:43)
[2023-01-13] MEDS: SODIUM CHLORIDE 0.9% 1,000 ML IV SCH (22:44)
[2023-01-14] MEDS ORDERED: GADOBUTROL 65ML VIAL IV ONE (05:11)
[2023-01-14] MEDS: LEVOTHYROXINE SODIUM 25 MCG TABLET PO SCH (05:30)
--- NOTE | 2023-01-14 07:25 | Hospitalist Progress Note ---
Date of Service January 14, 2023 Assessment & Plan (1) Acute confusion: Plan: episode appears consistent with transient low blood sugar. Glucose was in the 90s on arrival, A1C is 5.8 on metformin, decreased oral intake reported. EEG and MRI are unremarkable. (2) Dehydration: Plan: creatinine improved from 1.6 to 1.4 with IVF overnight. Cont to trend BMP in am. (3) CIARA (acute kidney injury): Plan: as noted above. (4) DMII (diabetes mellitus, type 2): Plan: chronic, well controlled A1C. Consider holding metformin to avoid possible hypoglycemia. (5) Atrial fibrillation: Plan: chronic, cont apixaban and metoprolol per home regimen. (6) CAD (coronary artery disease), [place] coronary artery: Plan: chronic, stable. Cont medical management. (7) HTN (hypertension): Plan: chronic, stable. cont current medical therapy. DVT prophy: apixaban Full Code Dispo-likely to home in am. Christie Carrion DO [facility]tic[facility] Dis[facility] Date Admission Date: January 13, 2023 Subjective 72 yo M presented to the ER after a period of acute unresponsiveness followed by confusion. The patient is improved and feeling better today. He reports decreased oral intake at [facility] but doesn't mention why. He feels his episode was "not eating enough nutrition." Physical Exam Physical Exam: CONSTITUTIONAL: WNWD, vitals as above, generally well-appearing, NAD EYES: pupils are round and equal bilaterally, normal conjunctivae, no scleral icterus ENT: external ear and nose normal, oropharynx clear, MMM NECK: trachea midline RESPIRATORY: clear to auscultation bilaterally, no crackles, rales or wheezes, normal respiratory effort CARDIOVASCULAR: regular rate and rhythm, S1 and 2 heard without murmurs, gallops or rubs, no JVD, no peripheral edema CHEST: inspection of chest was normal GASTROINTESTINAL: soft, nontender, ND, no guarding MUSCULOSKELETAL: strength 5/5 throughout, head is normocephalic and atraumatic, ambulating independently in the room SKIN: warm and dry, no rashes NEUROLOGIC: CN 2-12 grossly intact, no sensory deficit, normal cognition, normal speech, no tremor PSYCHIATRIC: alert cooperative and oriented to person, place and time. Euthymic mood, makes good eye contact, language grossly intact, recent and remote memory grossly intact. Results & Data Results & Data Vital Signs (Past 12 Hours) Vital Signs Temp Pulse Pulse Resp BP Pulse Ox O2 Del Method 01/14/23 03:28 36.8 C 83 18 119/88 97 Room Air 01/14/23 01:54 77 154/94 H 98 Room Air 01/13/23 22:32 76 01/13/23 22:29 36.7 C 83 18 148/95 H 99 Room Air 01/13/23 21:26 Room Air 01/13/23 21:19 73 14 163/94 H 98 Room Air 01/13/23 19:59 79 21 141/92 H 99 Room Air Laboratory Results Short CBC 01/13/23 Range/Units 15:52 WBC 8.36 (4.8-10.8) K/ul Hgb 14.6 (14.0-18.0) g/dl Hct 44.9 (42.0-52.0) % Plt Count 257 (130-400) K/uL BMP 01/13/23 15:52 Sodium 136 Potassium 4.6 Chloride 106 Carbon Dioxide 24 BUN 43 H Creatinine 1.62 H Glucose 103 H Calcium 9.3 Urine 01/13/23 Range/Units 17:47 Urine Color Yellow Urine Appearance Clear (Clear) Urine pH 5.5 (4.5-7.5) Ur Specific [place] 1.015 (1.000-1.030) Urine Protein Negative (Negative) Urine Glucose (UA) Negative (Negative) Medications Administered Current Inpatient Medications Acetaminophen (Acetaminophen 325 Mg Tab) 650 mg PO Q4H PRN PRN Reason: Pain or Fever Stop: 02/12/23 20:20 Apixaban (Apixaban 5 Mg Tablet) 5 mg PO BID ALICE Stop: 02/13/23 08:59 Aspirin (Aspirin 81 Mg Ectab) 81 mg PO DAILY ALICE Stop: 02/13/23 08:59 Atorvastatin Calcium (Atorvastatin 40 Mg Tab) 80 mg PO DAILY ALICE Stop: 02/13/23 08:59 Dextrose (Dextrose 50% 50 Ml Syringe) 25 - 50 ml IV UD PRN; Protocol PRN Reason: Hypoglycemia Protocol Stop: 02/12/23 21:09 Gabapentin (Gabapentin 100 Mg Cap) 100 mg PO BID ALICE Stop: 02/13/23 08:59 Glucagon (Glucagon For Inj 1 Mg Vial) 1 mg SQ UD PRN; Protocol PRN Reason: Hypoglycemia Protocol Stop: 02/12/23 21:09 Glucose (Glucose 10 Tab/Tube) 4 - 8 tab PO UD PRN; Protocol PRN Reason: Hypoglycemia Treatment Stop: 02/12/23 21:09 Glucose (Glucose 40% Gel 15 Gm Tube) 15 - 30 gm PO UD PRN; Protocol PRN Reason: Hypoglycemia Protocol Stop: 02/12/23 21:09 Sodium Chloride (Nss 1000ml) 1,000 mls @ 100 mls/hr IV .Q10H ALICE Stop: 01/14/23 17:14 Last Admin: 01/13/23 22:44 Dose: 100 mls/hr Insulin Aspart (Insulin Aspart Per Unit Charge) 0 units SC ACHS ALICE Stop: 02/13/23 07:29 Levothyroxine Sodium (Levothyroxine Sodium 25 Mcg Tablet) 25 mcg PO DAILYBB ALICE Stop: 02/13/23 06:29 Last Admin: 01/14/23 05:30 Dose: 25 mcg Losartan Potassium (Losartan Potassium 50 Mg Tab) 50 mg PO DAILY ALICE Stop: 02/13/23 08:59 Metoprolol Succinate (Metoprolol Succ 25mg Ext Rel Tab) 25 mg PO DAILY ALICE Stop: 02/13/23 08:59 Miscellaneous (Carbohydrates For Hypoglycemia ) 15 - 30 gm PO UD PRN PRN Reason: Hypoglycemia Protocol Stop: 02/12/23 21:09 Vitamin D (Cholecalciferol 1,000 Units 25 Mcg Tab) 1,000 units PO DAILY ALICE Stop: 02/13/23 08:59
--- NOTE | 2023-01-14 07:39 | Magnetic Resonance Report ---
MR brain wo/w con HISTORY: 72 years-old Male confusion acutely altered mental status COMPARISON: Head CT 01/13/2023, brain MRI 02/23/2017, 11/13/2016. TECHNIQUE: Multiplanar multisequence MRI of the brain was obtained both with and without the use of I V contrast. FINDINGS: No restricted diffusion. Midline structures are unremarkable. Degenerative changes of the mid cervica l spine. No acute intracranial hemorrhage, midline shift, abnormal extra-axial collection, hydrocepha jacquie or intra-axial mass. Involutional changes with mild scattered T2/FLAIR hyperintense foci througho ut the white matter suggestive of probable chronic microvascular ischemic disease. Subcentimeter focu s of increased T2/FLAIR signal within the medial aspect left temporal lobe/hippocampus on image 14 se winifred 8 is similar in appearance to the 2017 comparison without enhancement. This is a nonspecific fin ding. No abnormal enhancement identified. Cerebral venous sinuses and major arterial flow voids appear patent. Skull, orbits and soft tissues a re unremarkable. Trace right mastoid effusion. IMPRESSION: 1. No acute intracranial abnormality. No acute or subacute infarct. 2. No abnormal enhancement. 3. Involutional changes with suggestion of mild chronic microvascular ischemic disease. ACT 112: Negative or not required by law. The above report was generated using voice recognition software. It may contain grammatical, syntax o r spelling errors. Electronically signed by: Jovon Ny M.D. 01/14/2023 7:37 AM
[2023-01-14 08:09] LABS: Basophils # (auto) 0.04 K/uL (0.00-0.20); Basophils % (auto) 0.6 %; Eosinophils # (auto) 0.12 K/uL (0.00-0.50); Eosinophils % (auto) 1.7 %; Hematocrit (blood only) 45.2 % (42.0-52.0); Immature Granulocytes # (auto) 0.02 K/uL (0.01-0.20); Immature Granulocytes % (auto) 0.3 %; Lymphocytes % (auto) 17.2 %; Mean Corpuscular Hemoglobin 29.9 pg (25.0-34.0); Mean Corpuscular Hgb Conc 33.2 g/dL (32.0-36.0); Mean Corpuscular Volume 90.2 fL (80.0-100.0); Mean Platelet Volume 9.5 fL (9.4-12.4); Monocytes # (auto) 0.84 K/uL (0.11-0.59); Neutrophils # (auto) 4.76 K/uL (1.40-6.50); Neutrophils % (auto) 68.2 %; Platelet Count 264 K/uL (130-400); RDW Coefficient of Variation 13.2 % (11.5-14.5); RDW Standard Deviation 43.4 fL (36.4-46.3); Red Blood Count 5.01 M/uL (4.70-6.10); White Blood Count 6.98 K/ul (4.8-10.8)
[2023-01-14 08:12] LABS: Estimated Average Glucose 120 mg/dl; Hemoglobin A1C 5.8 % (4.5-5.6)
[2023-01-14 08:29] LABS: BUN Creatinine Ratio 22.8 (10-20); Calcium 9.2 mg/dl (8.6-10.3); Creatinine Clr Calc Pharmacy 54.1 ml/min; Est GFR (African American) 55.4 ml/min; Est GFR (Non-African American) 47.8 ml/min; Potassium 4.9 mmol/L (3.5-5.1)
[2023-01-14] MEDS: INSULIN ASPART PER UNIT CHARGE SC SCH ×4 (08:42→20:28)
[2023-01-14] MEDS: ASPIRIN 81 MG ECTAB PO SCH (08:56)
[2023-01-14] MEDS: ATORVASTATIN 40 MG TAB PO SCH (08:56)
[2023-01-14] MEDS: APIXABAN 5 MG TABLET PO SCH ×2 (08:56→20:27)
[2023-01-14] MEDS: CHOLECALCIFEROL 1,000 UNITS 25 MCG TAB PO SCH (08:57)
[2023-01-14] MEDS: GABAPENTIN 100 MG CAP PO SCH ×2 (08:57→20:28)
[2023-01-14] MEDS: LOSARTAN POTASSIUM 50 MG TAB PO SCH (08:58)
[2023-01-14] MEDS: METOPROLOL SUCC 25MG EXT REL TAB PO SCH (08:59)
[2023-01-14 09:18] LABS: Lyme Ab IgG w/WB Rflx Negative (Negative); Lyme Ab IgM w/WB Rflx Negative (Negative)
[2023-01-14 09:42] LABS: Folate (Folic Acid),Ser orPlas > 22.30 ng/ml (>5.38)
[2023-01-14 09:43] LABS: Vitamin B12 865 pg/ml (180-914)
[2023-01-14] MEDS: SODIUM CHLORIDE 0.9% 1,000 ML IV SCH (10:18)
--- NOTE | 2023-01-14 11:14 | Electroencephalogram ---
EEG Procedure Note Date of Service January 14, 2023 Start / End Times Start Time: 6:19 AM End Time: 6:39 AM Referring Physician Elia History Seizure-like activity Home Medication List Medication Instructions Recorded Confirmed Type apixaban 5 mg tablet 5 mg PO BID 11/17/20 01/13/23 History aspirin 81 mg tablet,delayed 81 mg PO DAILY 11/17/20 01/13/23 History release atorvastatin 80 mg tablet 80 mg PO DAILY 11/17/20 01/13/23 History cholecalciferol (vitamin D3) 25 25 mcg PO DAILY 11/17/20 01/13/23 History mcg (1,000 unit) tablet epinephrine 0.3 mg/0.3 mL 0.3 mg IM DIRECTED PRN Allergic 11/17/20 01/13/23 History injection, auto-injector (EpiPen) Reaction gabapentin 100 mg capsule 100 mg PO BID 11/17/20 01/13/23 History metformin 500 mg tablet 500 mg PO QAM 11/17/20 01/13/23 History spironolactone 50 mg tablet 50 mg PO DAILY 11/17/20 01/13/23 History losartan 50 mg tablet 50 mg PO DAILY 01/04/22 01/13/23 History acetaminophen 325 mg tablet 650 mg PO Q6H PRN PAIN/FEVER 01/13/23 01/13/23 History (Tylenol) levothyroxine 25 mcg tablet 25 mcg PO DAILY 01/13/23 01/13/23 History metoprolol succinate 50 mg 25 mg PO DAILY 01/13/23 01/13/23 History tablet,extended release 24 hr Inpatient Medication List Apixaban (Apixaban 5 Mg Tablet) 5 mg PO BID [facility] Stop: 02/13/23 08:59 Last Admin: 01/14/23 08:56 Dose: 5 mg Documented By: TIFFANY Co-signed By: MR Aspirin (Aspirin 81 Mg Ectab) 81 mg PO DAILY ALICE Stop: 02/13/23 08:59 Last Admin: 01/14/23 08:56 Dose: 81 mg Documented By: TIFFANY Co-signed By: MR Atorvastatin Calcium (Atorvastatin 40 Mg Tab) 80 mg PO DAILY ALICE Stop: 02/13/23 08:59 Last Admin: 01/14/23 08:56 Dose: 80 mg Documented By: TIFFANY Co-signed By: MR Gabapentin (Gabapentin 100 Mg Cap) 100 mg PO BID [facility] Stop: 02/13/23 08:59 Last Admin: 01/14/23 08:57 Dose: 100 mg Documented By: TIFFANY Co-signed By: MR Sodium Chloride (Nss 1000ml) 1,000 mls @ 100 mls/hr IV .Q10H ALICE Stop: 01/14/23 17:14 Last Admin: 01/14/23 10:18 Dose: 100 mls/hr Documented By: TIFFANY Co-signed By: MR Infusion: 01/14/23 08:44 Dose: 100 mls/hr Documented By: TIFFANY Co-signed By: Admin: 01/13/23 22:44 Dose: 100 mls/hr Documented By: QG Insulin Aspart (Insulin Aspart Per Unit Charge) 0 units SC ACHS ALICE Stop: 02/13/23 07:29 Last Admin: 01/14/23 08:42 Dose: 5 units Documented By: Co-signed By: DLP Levothyroxine Sodium (Levothyroxine Sodium 25 Mcg Tablet) 25 mcg PO DAILYBB ALICE Stop: 02/13/23 06:29 Last Admin: 01/14/23 05:30 Dose: 25 mcg Documented By: QG Losartan Potassium (Losartan Potassium 50 Mg Tab) 50 mg PO DAILY ALICE Stop: 02/13/23 08:59 Last Admin: 01/14/23 08:58 Dose: 50 mg Documented By: TIFFANY Co-signed By: MR Metoprolol Succinate (Metoprolol Succ 25mg Ext Rel Tab) 25 mg PO DAILY ALICE Stop: 02/13/23 08:59 Last Admin: 01/14/23 08:59 Dose: 25 mg Documented By: TIFFANY Co-signed By: MR Vitamin D (Cholecalciferol 1,000 Units 25 Mcg Tab) 1,000 units PO DAILY ALICE Stop: 02/13/23 08:59 Last Admin: 01/14/23 08:57 Dose: 1,000 units Documented By: TIFFANY Co-signed By: MR Discontinued Medications Gadobutrol (Gadobutrol 65ml Vial) 10 ml IV ONCE ONE Stop: 01/14/23 05:12 Last Admin: 01/14/23 05:12 Dose: 10 ml Documented By: MARY CARMEN Description This is a 21 electrode EEG with a single channel dedicated to limited EKG. The electrodes were placed in accordance with the International 10-20 system. There is a symmetrically distributed background rhythm of 8 to 10 Hz. Photic stimulation is unremarkable, hyperventilation is not performed. There is a symmetric frontal beta rhythm. There is admixed generalized theta activity in the latter part of the study and a few vertex waves and sleep spindles. There is no focal slowing. There are no epileptiform abnormalities. Interpretation Normal-appearing awake/sleepy EEG. No epileptiform abnormalities. [facility] EEG Procedure Codes Indication for Procedure (1) Syncope and collapse: (2) Acute confusion: Neurology Neurology: [id number] EEG include record awake & sleepy
--- NOTE | 2023-01-14 16:10 | Electrocardiogram Report ---
Test Reason : Blood Pressure : / mmHG Vent. Rate : 079 BPM Atrial Rate : 000 BPM P-R Int : 000 ms QRS Dur : 076 ms QT Int : 362 ms P-R-T Axes : 000 068 049 degrees QTc Int : 415 ms Atrial fibrillation Abnormal ECG When compared with ECG of 13-JAN-2023 16:23, (unconfirmed) No significant change was found Confirmed by Aaron Gutierrez ([id number]) on 01/14/2023 4:09:31 PM Referred By: REFERRED SELF Confirmed By:Jonathan Gutierrez
[2023-01-15 00:15] LABS: Rapid Plasma Reagin Nonreactive (Nonreactive)
[2023-01-15] MEDS: LEVOTHYROXINE SODIUM 25 MCG TABLET PO SCH (05:21)
[2023-01-15] MEDS: INSULIN ASPART PER UNIT CHARGE SC SCH (08:48)
[2023-01-15] MEDS: METOPROLOL SUCC 25MG EXT REL TAB PO SCH (08:49)
[2023-01-15] MEDS: APIXABAN 5 MG TABLET PO SCH (08:49)
[2023-01-15] MEDS: GABAPENTIN 100 MG CAP PO SCH (08:49)
[2023-01-15] MEDS: CHOLECALCIFEROL 1,000 UNITS 25 MCG TAB PO SCH (08:49)
[2023-01-15] MEDS: ASPIRIN 81 MG ECTAB PO SCH (08:49)
[2023-01-15] MEDS: LOSARTAN POTASSIUM 50 MG TAB PO SCH (08:49)
[2023-01-15] MEDS: ATORVASTATIN 40 MG TAB PO SCH (08:50)
[2023-01-15 10:10] LABS: BUN Creatinine Ratio 24.2 (10-20); Calcium 9.4 mg/dl (8.6-10.3); Creatinine Clr Calc Pharmacy 52.4 ml/min; Est GFR (African American) 53.6 ml/min; Est GFR (Non-African American) 46.2 ml/min; Potassium 4.4 mmol/L (3.5-5.1)
--- NOTE | 2023-01-15 13:42 | Discharge Summary ---
Discharge Summary Date of Service January 15, 2023 Notes For Next Care Provider Period of unresponsiveness likely related to hypoglycemia in setting of dieting (by missing meals) in setting of metformin with A1c of 5.8. Please repeat BMP in one week Held losartan, spironolactone and metformin at discharge pending outcome of BMP Please restart as you see fit Medication Changes From Visit please see med rec Admission HPI Per Admitting Provider This is a 72 y/o male with a history of DM2, atrial fibrillation, CAD, HTN, and prior CVA who presented to the today after he became transiently unresponsive with residual confusion this afternoon. History from patient is limited as he has no recollection of the event so his brother provided an account of the events. Pt and his brother were apparently together all day, running several errands then came home. They were outside at home for a few hours when pt started to stare at nothing, slid to his knees, and become unresponsive though never appeared to lose consciousness. This lasted a few minutes before he started to respond but his brother noted that he was confused and unable to answer basic questions so he called EMS who brought pt to the ED. Initially in the ED, he remained slow to answer questions but his mental status has gradually improved since arrival. Currently, pt reports that he is back to his baseline and he is questioning the need for admission. He denies recent illness. He does report changing his diet a few weeks ago to use supplements like Ensure which he often substitutes for breakfast and sometimes lunch. He thinks that he may have missed lunch today. He denies chest pain, dyspnea, palpitations, lightheadedness or issues with bowel movements or urination. No issues ambulating or feeling more weak on one side. Uses diabetic shoes but no cane or walker. He reports living in a senior care setting and states that they manage his medications so he is unsure what he's taking. Does not routinely check his blood sugars. He reports a similar episode of symptoms last year when he was admitted. However, these symptoms were attributed to dehydration from recent illness. Principal Dx & Hospital Course #1 = Principal Diagnosis (1) Acute confusion: (2) Dehydration: (3) CIARA (acute kidney injury): (4) DMII (diabetes mellitus, type 2): (5) Atrial fibrillation: (6) CAD (coronary artery disease), [place] coronary artery: (7) HTN (hypertension): Plan The patient is a 72-year-old man with a history of diabetes and atrial fibrillation presents with transient unresponsive episode with residual confusion. Patient and his brother were together running errands and then came home. Patient became unresponsive with eyes open and slid to his knees, but did not lose consciousness. Patient reports missing different meals and starting to use supplements like Ensure which she will substitute for breakfast and lunch. Glucose on arrival was in the low 100s. A1c was 5.8 which was unchanged from December 2021. Patient remains on metformin 500 mg p.o. daily. He was placed on conservative insulin coverage during his stay. Retrospectively his episode may have been related to hypoglycemia. He was counseled to hold his metformin until discussing this further with his primary care physician and he was given education regarding the importance of consistently eating meals/snacks throughout the day, as well as nutrition guidance on how many calories to eat per day and what types of foods to eat. As part of the work-up he did also undergo a brain MRI which revealed no acute intracranial abnormality, and no abnormal enhancement. He did have changes consistent with mild chronic microvascular ischemic disease. He also underwent an EEG which was unremarkable for epileptic activity. Telemetry during admission revealed persistent atrial fibrillation with no additional events. He did have an elevated creatinine to 1.62 with a baseline creatinine around 1.4. This resolved to 1.49 on day of discharge. As a result, losartan, spironolactone and metfomrin were all held at discharge until follow-up with PCP in one week. Recommend repeating BMP at that time and consider alternative to metformin given his dieting changes and elevated creatinine. He was discharged in stable condition. Discharge Exam Symptoms resolved, mentating and ambulating at baseline and tolerating p.o. Oxygenating well on room air. Hemodynamically stable and afebrile. Updated Medication List Medication Instructions Recorded Confirmed Type apixaban 5 mg tablet 5 mg PO BID 11/17/20 01/13/23 History aspirin 81 mg tablet,delayed 81 mg PO DAILY 11/17/20 01/13/23 History release atorvastatin 80 mg tablet 80 mg PO DAILY 11/17/20 01/13/23 History cholecalciferol (vitamin D3) 25 25 mcg PO DAILY 11/17/20 01/13/23 History mcg (1,000 unit) tablet epinephrine 0.3 mg/0.3 mL 0.3 mg IM DIRECTED PRN Allergic 11/17/20 01/13/23 History injection, auto-injector (EpiPen) Reaction gabapentin 100 mg capsule 100 mg PO BID 11/17/20 01/13/23 History acetaminophen 325 mg tablet 650 mg PO Q6H PRN PAIN/FEVER 01/13/23 01/13/23 History (Tylenol) levothyroxine 25 mcg tablet 25 mcg PO DAILY 01/13/23 01/13/23 History metoprolol succinate 50 mg 25 mg PO DAILY 01/13/23 01/13/23 History tablet,extended release 24 hr Hospital Stay Data Consultations 01/13/23 18:20 ED Decision to Admit Stat Diagnostic Imagining Performed 01/13/23 15:35 CT head/brain wo con Stat 01/14/23 02:10 MRI Brain [MR brain wo/w con] Urgent Pending Results Patient Have Any Pending Studies at Discharge: No Discharge Instructions Given to Patient (Per Discharging Provider) Please take all medications as instructed on discharge list below. Please stop metformin until you can speak with your primary care physician (PCP) on follow-up. It is possible that your episode of confusion was related to transient low blood sugar. When you arrived to the ER your blood sugar was 103. Your Hemoglobin A1C was 5.8 which has been unchanged since December 2021. Please continue to eat consistently throughout the day, consuming healthy snacks/meals at least three times daily. Please consume around 1500 calories per day on average. Exercise regularly as this will make your body more responsive to insulin and improve your blood sugar naturally. Please consider a referral to a steel worker for more detailed education of diet. Please follow-up with your PCP in one week of hospital discharge to ensure you are still doing well since returning home. It will be important to repeat your basic metabolic panel at that time and ensure your kidney function has returned back to normal. Please stop taking losartan, metformin and spironolactone until your repeat bloodwork has returned. Please stay hydrated in the meantime. It was a pleasure taking care of you! Please call if you have any questions or problems. You can reach a [facility] hospitalist on duty at [facility] 24 hours a day by calling [phone]. Take care of yourself. Christie Carrion, [facility] Hospitalist Total Time Total Time Spent Total Time Spent (In Minutes): 60
== END 2023-01-15 15:30 | disposition home or self-care (01) | DRG 682 ==
LOC: ED 15:14 → EDINP 15:14 → SUATTDRO 19:37 → 2N 21:26